=== PATIENT | male | born 1950 | race Caucasian/White ===

== ENCOUNTER 2016-12-17 17:09 | Inpatient (IN) ==
--- OUTSIDE RECORDS SUMMARY | 2016-12-17 19:49 | External Medical Summary ---
:1950 Author Organization [facility] Care Team Providers Name Role Phone DON ROA MD Primary Care Provider [phone] Summary purpose CCDA Sent to [facility] Chief Complaint and Reason for Visit No authorized Reason for Visit (Admitting Diagnosis) is available for this visit. Problem list No authorized problems tracked for continuity of care are available for this visit. Encounters No authorized problems tracked for encounter diagnoses are available for this visit. Medications No medications recorded for this patient visit Allergies, adverse reactions, alerts Allergen Category Ingredient Status Reaction Severity Onset No known drug No known drug No known drug Active allergies allergies allergies Immunizations No immunizations recorded for this patient visit Relevant diagnostic tests and/or laboratory data RESULTS Chemistry Group [id number] Result Normal Range Units TSH 2.494 .358-3.74 uIU/mL History of procedures Procedure Code Code Type Description Date Performed Performing Physician 20912 CPT-4 ASSAY THYROID STIM 07-06-2016 EVARISTO NESBITT HORMONE 76776 CPT-4 ROUTINE VENIPUNCTURE 07-06-2016 EVARISTO NESBITT Functional status No functional or cognitive status observations are available for this visit. Vital signs No authorized vital signs are available for this visit. Social history No Social History or smoking status observations were recorded for this visit. ( Unknown if ever smoked.) Treatment Plan No treatment plan text is available for this visit. Hospital discharge instructions No discharge instruction text is available for this visit.
--- OUTSIDE RECORDS SUMMARY | 2016-12-17 19:49 | External Medical Summary ---
:1950 Author Organization [facility] Care Team Providers Name Role Phone DON ROA MD Primary Care Provider [phone] Summary purpose CCDA Sent to [facility] Chief Complaint and Reason for Visit Admit Diagnosis 1 dyspnea Problem list No authorized problems tracked for [...] visit Relevant diagnostic tests and/or laboratory data No authorized results are available for this patient visit History of procedures No procedures recorded for this patient visit. Functional status No functional or cognitive status [...]
--- OUTSIDE RECORDS SUMMARY | 2016-12-17 19:49 | External Medical Summary | Continuity of Care Document ---
:1950 Author Organization [facility] Care Team Providers Name Role Phone PREMA GRANADO Admitting Physician PREMA GRANADO Attending Physician Hospital Admission Diagnosis Code Admission Diagnosis Date ENCOUNTER FOR PREPROCEDURAL CARDIOVASCULAR EXAMINATION Social History Element Description Code Description Smoking Status Code Start Date End Date System Smoking Status [id number] Never smoker SNOMED-CT Problems No data in the system Medications SNOMED CT Description 129936573 Drug Treatment Unknown Allergies No Allergy Data in the System Results Laboratory Results Order: Basic Metabolic PanelLegend: D=Delta , H=High, L=Low, HH=Critical High, LL=Critical Low, AA=Critical Alpha-Numeric, C =Corrected, A=Abnormal LOINC Test Result Flag Range Units Date 2344-12 1Glucose SerPl-mCnc 127 H 70-105 mg/dl 08/27/2015 10:36 3094-0 1BUN SerPl-mCnc 17 7-25 mg/dl 08/27/2015 10:36 2160-0 1Creat SerPl-mCnc 1.1 0.6-1.3 mg/dl 08/27/2015 10:36 23401-9 1Creat/Urea nit SerPl 15 13-39 08/27/2015 10:36 2951-2 1Sodium SerPl-sCnc 139 135-145 mmol/L 08/27/2015 10:36 56601-5 1Potassium SerPl-mCnc 4.2 3.5-5.1 mmol/L 08/27/2015 10:36 5-0 1Chloride SerPl-sCnc 99 98-107 mmol/l 08/27/2015 10:36 2027-9 1CO2 SerPl-sCnc 30 21-31 mmol/l 08/27/2015 10:36 49438-7 1Anion Gap SerPl-sCnc 14 9-16 mmol/L 08/27/2015 10:36 2692-2 1Osmolality SerPl 291 277-298 mOsm/kg 08/27/2015 10:36 23183-2 1Calcium SerPl-mCnc 9.2 8.2-10.0 mg/dl 08/27/2015 10:36 1GFR 67 60-116 GFRunits 08/27/2015 10:36 Performing [facility] Footnotes:[id number] - [address] [place] [address] - MARY MARCELO Order: CBC With Automated DifferentialLegend: D=Delta, H=High, L=Low, HH= Critical High, LL=Critical Low, AA=Critical Alpha-Numeric, C=Corrected, A= Abnormal LOINC Test Result Flag Range Units Date 90-2 1WBC # Bld Auto 7.6 4.5-11.0 10^3/mm3 08/27/2015 10:36 21364-8 1Retics # Auto 4.27 L 4.50-5.90 10^6/mm3 08/27/2015 10:36 24205-5 1Hgb BldV-mCnc 13.1 L 13.5-17.5 g/dl 08/27/2015 10:36 4544-3 1Hct VFr Bld Auto 40.2 L 41.0-53.0 % 08/27/2015 10:36 787-2 1MCV RBC Auto 94.1 82.0-100.0 10^6/mm3 08/27/2015 10:36 785-6 1MCH RBC Qn Auto 30.7 27.0-34.0 pg 08/27/2015 10:36 786-4 1MCHC RBC Auto-mCnc 32.6 32.0-36.0 g/dl 08/27/2015 10:36 788-0 1RDW RBC Auto-Rto 13.9 11.7-15.0 % 08/27/2015 10:36 777-3 1Platelet # Bld Auto 189 150-450 10^3/mm3 08/27/2015 10:36 33934-4 1PMV Bld 11.6 H 7.4-10.4 08/27/2015 10:36 53231-1 1Neutrophils # CSF 61.8 40.0-74.0 % 08/27/2015 10:36 1LYMPH% 24.7 14.0-46.0 % 08/27/2015 10:36 02453-0 1CD43 Ag Tiss Ql ImStn 8.5 4.0-13.0 % 08/27/2015 10:36 711-2 1Eosinophil # Bld Auto 4.7 H <=4.0 % 08/27/2015 10:36 704-7 1Basophils # Bld Auto 0.3 <=3.0 % 08/27/2015 10:36 751-8 1Neutrophils # Bld Auto 4.7 1.8-7.8 08/27/2015 10:36 62921-1 1Lymphocytes # Bld 1.9 0.7-4.5 08/27/2015 10:36 19937-3 1CD43 Ag Tiss Ql ImStn 0.7 0.1-1.0 08/27/2015 10:36 711-2 1Eosinophil # Bld Auto 0.36 <=4.00 08/27/2015 10:36 704-7 1Basophils # Bld Auto 0.02 <=0.20 08/27/2015 10:36 2MANDIFF N 08/27/2015 10:36 67935-3 2RBC Bld Auto N 08/27/2015 10:36 Performing Lab Footnotes:[facility] - [id number] - [address] - MARY MARCELO2[facility] - [id number] - [address] - Continuity Writer:, Mary Zaki MARCELO Order: UrinalysisLegend: D=Delta, H=High, L=Low, HH=Critical High, LL=Critical Low, AA=Critical Alpha-Numeric, C=Corrected, A=Abnormal LOINC Test Result Flag Range Units Date 5778-6 1Color Ur Yellow 08/27/2015 10:36 69117-0 1Clarity Ur Clear 08/27/2015 10:36 2966-0 1Sp Gr 24h Ur 1.025 1.005-1.030 08/27/2015 10:36 2756-5 1pH Ur 5.5 5.0-7.0 08/27/2015 10:36 63843-1 1Leukocyte esterase Ur-aCnc Negative NEGATIVE 08/27/2015 10:36 92040-4 1Nitrite Ur Ql Strip.auto Negative NEGATIVE 08/27/2015 10:36 37385-7 1Prot Tiss-mCnt Trace * NEGATIVE 08/27/2015 10:36 2349-9 1Glucose Ur Ql Negative NEGATIVE 08/27/2015 10:36 48557-4 1MEK Ur-mCnc Negative NEGATIVE 08/27/2015 10:36 1977-8 1Bilirub Ur Ql Negative NEGATIVE 08/27/2015 10:36 55018-9 1Urobilinogen Ur Ql 0.2 <=1.0 08/27/2015 10:36 933-2 1Bld Prod Typ BPU Negative NEGATIVE 08/27/2015 10:36 05371-6 1Micro UrnS N 08/27/2015 10:36 Performing Lab Footnotes:[facility] - [id number] - [address] [place] [address] - MARY MARCELO Vital Signs No data in the system Plan of Care No data in the system Procedures No data in the system Encounters Date Code Diagnosis Status (ICD10) - X77697 ENCOUNTER PREPROCEDURAL CV EXAM Active Immunizations No data in the system Functional Status No data in the system Hospital Discharge Instructions No data in the system
--- OUTSIDE RECORDS SUMMARY | 2016-12-17 19:49 | External Medical Summary ---
:1950 Author Organization [facility] Care Team Providers Name Role Phone DON ROA MD Primary Care Provider [phone] Summary purpose CCDA Sent to [facility] Chief Complaint and Reason for Visit No [...]
--- OUTSIDE RECORDS SUMMARY | 2016-12-17 19:49 | External Medical Summary ---
:1950 Author Organization [facility] Care Team Providers Name Role Phone DON ROA MD Primary Care Provider [phone] Summary purpose CCDA Sent to [facility] Chief Complaint and Reason for Visit No [...] for this patient visit History of procedures Procedure Code Code Type Description Date Performed Performing Physician 70678 CPT-4 OFFICE/OUTPATIENT VISIT, 07-20-2016 EVARISTO JONES Functional status No functional or cognitive status [...]
--- OUTSIDE RECORDS SUMMARY | 2016-12-17 19:49 | External Medical Summary ---
:1950 Author Organization [facility] Care Team Providers Name Role Phone DON ROA MD Primary Care Provider [phone] Summary purpose CCDA Sent to [facility] Chief Complaint and Reason for Visit Admit Diagnosis 1 PAIN IN LIMB Problem list No authorized problems tracked for continuity of care are available for this visit. Encounters No authorized problems tracked for encounter diagnoses are available for this visit. Medications No home medications recorded for this patient visit Allergies, adverse reactions, alerts Allergen Category Ingredient Status Reaction Severity Onset No known drug No known drug No known drug Active allergies allergies allergies Immunizations No immunizations recorded for this patient visit Relevant diagnostic tests and/or laboratory data RESULTS Complete Blood Count [id number]:41:00 Result Normal Range Units WBC 9.90 4.0-11.0 x 103/uL Red Blood Cells L 4.07 4.50-6.50 x 106/uL Hemoglobin 13.3 13.0-18.0 g/dl Hematocrit L 38.5 40.0-54.0 % MCV 94.6 76-96 fL MCH H 32.7 27.0-32.0 pg MCHC 34.5 31.0-35.0 g/dl Red Cell Distribution Width 12.8 11.0-16 % Platelet Count 171 150-400 x 103/uL MPV H 12.1 6.0-10.0 fL Neutrophil % H 72.3 45.0-70.0 % Neutrophil # 7.16 2.00-7.50 x 103/uL Lymph % L 18.2 20.0-40.0 % Lymph # 1.80 1.50-4.00 x 103/uL [place] % 6.6 3.0-10.0 % [place] # 0.65 0.20-0.80 x 103/uL Eosinophil % 2.7 1.0-5.0 % Eosinophil # 0.27 0.04-0.40 x 103/uL Baso % 0.2 0.0-2.0 % Baso # 0.02 0.02-0.2 x 103/uL Chemistry Group [id number]:00 Result Normal Range Units Glucose H 133 74-106 mg/dl Urea Nitrogen (BUN) H 24 7-18 mg/dl Osmo, Calcualation 288 268-292 Creatinine H 1.42 .55-1.30 mg/dl eGFR L 50 > 60 ml/min. BUN/Creat Ration H 16.9 11.6-13.8 Ratio Calcium 8.5 8.5-10.1 mg/dl Sodium 136 136-145 mmol/L Potassium 4.0 3.5-5.1 mmol/L Chloride 101 98-107 mmol/L TCO2 28.3 21-32 mmol/L Anion Gap 10.7 5.0-15.0 mmol/L Uric Acid H 7.8 2.6-7.2 mg/dl History of procedures Procedure Code Code Type Description Date Performed Performing Physician 00742 CPT-4 COMPLETE CBC W/AUTO DIFF 01-24-2015 EVARISTO NESBITT WBC 58402 CPT-4 METABOLIC PANEL TOTAL 01-24-2015 [place] [address] CPT-4 ASSAY OF BLOOD/URIC 01-24-2015 EVARISTO NESBITT ACID 40198 CPT-4 ROUTINE VENIPUNCTURE 01-24-2015 EVARISTO NESBITT Functional status No functional or [...]
--- OUTSIDE RECORDS SUMMARY | 2016-12-17 19:49 | External Medical Summary | Continuity of Care Document ---
:1950 Author Organization [facility] Care Team Providers Name Role Phone PREMA GRANADO Admitting Physician PREMA GRANADO Attending Physician Hospital Admission Diagnosis No data in the System Social History Element Description Code Description Smoking Status Code Start Date End Date System Smoking Status [id number] Never smoker SNOMED-CT Problems No data in the system Medications SNOMED CT Description [id number] Drug Treatment Unknown Allergies No Allergy Data in the System Results Laboratory Results Order: Basic Metabolic PanelLegend: D=Delta , H=High, L=Low, HH=Critical High, LL=Critical Low, AA=Critical Alpha-Numeric, C =Corrected, A=Abnormal LOINC Test Result Flag Range Units Date 2344-12 1Glucose SerPl-mCnc 127 H 70-105 mg/dl 08/27/2015 10:36 3094-0 1BUN SerPl-mCnc 17 7-25 mg/dl 08/27/2015 10:36 2160-0 1Creat SerPl-mCnc 1.1 0.6-1.3 mg/dl 08/27/2015 10:36 16214-5 1Creat/Urea nit SerPl 15 13-39 08/27/2015 10:36 2951-2 1Sodium SerPl-sCnc 139 135-145 mmol/L 08/27/2015 10:36 29119-0 1Potassium SerPl-mCnc 4.2 3.5-5.1 mmol/L 08/27/2015 10:36 2075-0 1Chloride SerPl-sCnc 99 98-107 mmol/l 08/27/2015 10:36 8-9 1CO2 SerPl-sCnc 30 21-31 mmol/l 08/27/2015 10:36 92063-4 1Anion Gap SerPl-sCnc 14 9-16 mmol/L 08/27/2015 10:36 2692-2 1Osmolality SerPl 291 277-298 mOsm/kg 08/27/2015 10:36 64501-5 1Calcium SerPl-mCnc 9.2 8.2-10.0 mg/dl 08/27/2015 10:36 1GFR 67 60-116 GFRunits 08/27/2015 10:36 Performing Lab Footnotes:[facility] [id number] - [address] - MARY MARCELO Order: CBC With Automated DifferentialLegend: D=Delta, H=High, L=Low, HH= Critical High, LL=Critical Low, AA=Critical Alpha-Numeric, C=Corrected, A= Abnormal LOINC Test Result Flag Range Units Date 6689-07 1WBC # Bld Auto 7.6 4.5-11.0 10^3/mm3 08/27/2015 10:36 88670-8 1Retics # Auto 4.27 L 4.50-5.90 10^6/mm3 08/27/2015 10:36 91866-7 1Hgb BldV-mCnc 13.1 L 13.5-17.5 g/dl 08/27/2015 [...] Bld Auto 189 150-450 10^3/mm3 08/27/2015 10:36 64096-0 1PMV Bld 11.6 H 7.4-10.4 08/27/2015 10:36 62296-0 1Neutrophils # CSF 61.8 40.0-74.0 % 08/27/2015 10:36 1LYMPH% 24.7 14.0-46.0 % 08/27/2015 10:36 40458-4 1CD43 Ag Tiss Ql ImStn 8.5 4.0-13.0 % 08/27/2015 10:36 711-2 1Eosinophil # Bld Auto 4.7 H <=4.0 % 08/27/2015 10:36 704-7 1Basophils # Bld Auto 0.3 <=3.0 % 08/27/2015 10:36 751-8 1Neutrophils # Bld Auto 4.7 1.8-7.8 08/27/2015 10:36 44461-1 1Lymphocytes # Bld 1.9 0.7-4.5 08/27/2015 10:36 47799-8 1CD43 Ag Tiss Ql ImStn 0.7 0.1-1.0 08/27/2015 10:36 711-2 1Eosinophil # Bld Auto 0.36 <=4.00 08/27/2015 10:36 704-7 1Basophils # Bld Auto 0.02 <=0.20 08/27/2015 10:36 2MANDIFF N 08/27/2015 10:36 12337-3 2RBC Bld Auto N 08/27/2015 10:36 Performing Lab Footnotes:[facility] [id number] - [address] - MARY MARCELO[address] - [id number] - [address] - Nanosystems Engineer:, Mary Marcelo MD - MARY MARCELO Order: UrinalysisLegend: D=Delta, H=High, L=Low, HH=Critical High, LL=Critical Low, AA=Critical Alpha-Numeric, C=Corrected, A=Abnormal LOINC Test Result Flag Range Units Date 5778-6 1Color Ur Yellow 08/27/2015 10:36 98707-8 1Clarity Ur Clear 08/27/2015 10:36 2966-0 1Sp Gr 24h Ur 1.025 1.005-1.030 08/27/2015 10:36 2756-5 1pH Ur 5.5 5.0-7.0 08/27/2015 10:36 98360-0 1Leukocyte esterase Ur-aCnc Negative NEGATIVE 08/27/2015 10:36 45044-0 1Nitrite Ur Ql Strip.auto Negative NEGATIVE 08/27/2015 10:36 20990-7 1Prot Tiss-mCnt Trace * NEGATIVE 08/27/2015 10:36 2349-9 1Glucose Ur Ql Negative NEGATIVE 08/27/2015 10:36 82640-8 1MEK Ur-mCnc Negative NEGATIVE 08/27/2015 10:36 1977-8 1Bilirub Ur Ql Negative NEGATIVE 08/27/2015 10:36 79339-0 1Urobilinogen Ur Ql 0.2 <=1.0 08/27/2015 10:36 933-2 1Bld Prod Typ BPU Negative NEGATIVE 08/27/2015 10:36 86610-2 1Micro UrnS N 08/27/2015 10:36 Performing Lab Footnotes:[facility] - [id number] - [address] [place] [address] - MARY MARCELO Vital Signs No data in the system Plan of Care No data in the system Procedures No data in the system Encounters No data in the system Immunizations No data in the system Functional Status No data in the system Hospital Discharge Instructions No data in the system
--- OUTSIDE RECORDS SUMMARY | 2016-12-17 19:49 | External Medical Summary ---
:1950 Author Organization [facility] Care Team Providers Name Role Phone DON ROA MD Primary Care Provider [phone] Summary purpose CCDA Sent to [facility] Chief Complaint and Reason for Visit No [...] Code Type Description Date Performed Performing Physician 72137 CPT-4 X-RAY EXAM OF FOREARM 05-28-2015 [place] 31474 CPT-4 X-RAY EXAM OF WRIST 05-28-2015 [place] Functional status No functional or cognitive status [...]
--- OUTSIDE RECORDS SUMMARY | 2016-12-17 19:49 | External Medical Summary ---
:1950 Author Organization [facility] Care Team Providers Name Role Phone CRISPIN BALLESTEROS, DON Primary Care Provider [phone] DON ROA MD Primary Care Provider [phone] Summary purpose CCDA Sent to [facility] Chief Complaint and Reason for [...]
--- OUTSIDE RECORDS SUMMARY | 2016-12-17 19:49 | External Medical Summary ---
:1950 Author Organization [facility] Care Team Providers Name Role Phone DON ROA MD Primary Care Provider [phone] Summary purpose CCDA Sent to [facility] Chief Complaint and Reason for Visit Admit Diagnosis 1 DYSEMIA Problem list No authorized problems tracked for [...]
--- OUTSIDE RECORDS SUMMARY | 2016-12-17 19:49 | External Medical Summary | Continuity of Care Document ---
:1950 Author Organization [facility] Allergies Active Description Code Type Severity Reaction Onset Reported/ Identified Relationship Clinical to Patient Status Yes No known 70973 ND N/A N/A 10/25/2012 drug 590 allergies Yes No Known NKA Misce Unknown N/A 08/10/2016 Allergies llane ous Aller gy Medications Medication Packaging Start Date Stop Date Route Dosage Sig Hydralazine HCl 25 MG 08/10/2016 25 MG TID Albuterol Sulfate 0.63 MG/3 ML 08/10/2016 1 VIAL.NEB PRN Levothyroxine Sodium 100 MCG 08/10/2016 100 MCG DAILY Spironolactone 25 MG 08/10/2016 25 MG DAILY Lisinopril 20 MG 08/10/2016 20 MG BID Hydrochlorothiazide 50 MG 08/10/2016 50 MG DAILY Indomethacin 50 MG 08/10/2016 50 MG PRN Metoprolol Tartrate 50 MG 08/10/2016 50 MG TID Lovastatin 20 MG 08/10/2016 20 MG DAILY Problems Date Dx Coded Attending Type Code Diagnosis Diagnosed By 09/17/2010 EVARISTO NESBITT MD 401.9 HYPERTENSION NOS G 09/17/2010 EVARISTO NESBITT MD 465.8 ACUTE URI MULT SITES NEC G 09/17/2010 EVARISTO NESBITT MD 493.00 EXTRINSIC ASTHMA, UNSPEC G 10/10/2010 EVARISTO NESBITT MD 401.9 HYPERTENSION NOS G 10/10/2010 EVARISTO NESBITT MD 493.00 EXTRINSIC ASTHMA, UNSPEC G 10/10/2010 EVARISTO NESBITT MD 401.9 HYPERTENSION NOS G 10/10/2010 EVARISTO NESBITT MD V76.44 SCREEN MAL NEOP PROSTATE G 10/16/2010 Josué ROA MD 401.9 HYPERTENSION NOS CHRISTOPHER M 12/16/2010 EVARISTO NESBITT MD 401.9 HYPERTENSION NOS G 12/16/2010 EVARISTO NESBITT MD 493.00 EXTRINSIC ASTHMA, UNSPEC G 05/18/2012 EVARISTO NESBITT MD 401.9 HYPERTENSION NOS G 05/18/2012 EVARISTO NESBITT MD 702.0 ACTINIC KERATOSIS G 05/18/2012 EVARISTO NESBITT MD 709.9 SKIN DISORDER NOS G 05/18/2012 EVARISTO NESBITT MD 786.2 COUGH G 05/18/2012 EVARISTO NESBITT MD 401.9 HYPERTENSION NOS G 05/18/2012 EVARISTO NESBITT MD 786.2 COUGH G 05/31/2012 EVARISTO NESBITT MD 288.60 LEUKOCYTOSIS NOS G 05/31/2012 EVARISTO NESBITT MD 401.9 HYPERTENSION NOS G 10/28/2012 EVARISTO NESBITT MD 278.01 MORBID OBESITY G 10/28/2012 EVARISTO NESBITT MD 401.9 HYPERTENSION NOS G 10/28/2012 EVARISTO NESBITT MD 427.9 CARDIAC DYSRHYTHMIA NOS G 10/28/2012 EVARISTO NESBITT MD 486 PNEUMONIA, ORGANISM NOS G 10/28/2012 EVARISTO NESBITT MD 491.21 OBSTRUCTIVE CHRONIC BRON G 10/28/2012 EVARISTO NESBITT MD 278.01 MORBID OBESITY G 10/28/2012 EVARISTO NESBITT MD 401.9 HYPERTENSION NOS G 10/28/2012 EVARISTO NESBITT MD 427.9 CARDIAC DYSRHYTHMIA NOS G 10/28/2012 EVARISTO NESBITT MD 486 PNEUMONIA, ORGANISM NOS G 10/28/2012 EVARISTO NESBITT MD 491.21 OBSTRUCTIVE CHRONIC BRON G 11/08/2012 EVARISTO NESBITT MD 401.9 HYPERTENSION NOS G 11/08/2012 EVARISTO NESBITT MD 427.69 PREMATURE BEATS NEC G 11/08/2012 EVARISTO NESBITT MD 493.90 ASTHMA, UNSPECIFIED G 11/08/2012 EVARISTO NESBITT MD 518.0 PULMONARY COLLAPSE G 02/06/2013 VENUS CINTRON MD 425.4 PRIM CARDIOMYOPATHY NEC 03/20/2013 VENUS CINTRON MD 425.4 PRIM CARDIOMYOPATHY NEC 03/20/2013 EVARISTO NESBITT MD 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 03/20/2013 EVARISTO NESBITT MD 786.05 SHORTNESS OF BREATH G 06/28/2013 EVARISTO NESBITT MD 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 06/28/2013 EVARISTO NESBITT MD 401.9 HYPERTENSION NOS G 06/28/2013 EVARISTO NESBITT MD 427.89 CARDIAC DYSRHYTHMIAS NEC G 06/28/2013 EVARISTO NESBITT MD 477.9 ALLERGIC RHINITIS NOS G 06/28/2013 EVARISTO NESBITT MD 786.09 RESPIRATORY ABNORM NEC G 12/19/2013 MARIA DEL ROSARIO ALEX 719.41 JOINT PAIN-SHLDER 12/19/2013 MARIA DEL ROSARIO ALEX 919.4 INSECT BITE NEC 03/01/2014 CRISPIN BALLESTEROS, A 599.70 [facility] 03/01/2014 Josué ROA MD 682.6 CELLULITIS OF LEG [facility] 03/01/2014 Josué ROA MD 599.70 [facility] 03/01/2014 Josué ROA MD 682.6 CELLULITIS OF LEG [facility] 03/06/2014 EVARISTO NESBITT MD 274.9 GOUT NOS G 03/06/2014 EVARISTO NESBITT MD 682.6 CELLULITIS OF LEG G 05/21/2014 MARIA DEL ROSARIO ALEX 729.5 PAIN IN LIMB 01/24/2015 EVARISTO NESBITT MD 274.9 GOUT NOS G 01/24/2015 EVARISTO NESBITT MD 729.5 PAIN IN LIMB G 05/28/2015 AUSTIN SALEEM 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, left E wrist 05/28/2015 AUSTIN SALEEM R29.6 Repeated falls E 05/28/2015 AUSTIN SALEEM S56.992A Inj unsp musc/fasc/tend E at forearm level, left arm, init 05/28/2015 AUSTIN SALEEM S69.82XA Oth injuries of left E wrist, hand and finger(s), init encntr 05/28/2015 KELLEE SALEEMTIM Moses W01.0XXA Fall same lev from E slip/trip w/o strike against object, init 05/28/2015 LATISHA DIXONPKELLEETIM Moses Y92.[address] in unsp E non-[facility] (private[facility] residence as place 05/28/2015 LATISHA DIXONAUSTIN Albrecht Y93.01 Activity, walking, E marching and hiking 05/28/2015 LATISHA AUSTIN ORTIZ M25.532 Pain in left wrist E 05/28/2015 LATISHA DIXONAUSTIN Albrecht M79.602 Pain in left arm E 05/28/2015 LATISHA AUSTIN ORTIZ R29.6 Repeated falls E 05/28/2015 LATISHA DIXONAUSTIN Albrecht S59.812A Other specified injuries E left forearm, initial encounter 05/28/2015 LATISHA DIXONPKELLEETIM Moses W01.0XXA Fall same lev from E slip/trip w/o strike against object, init 05/28/2015 LATISHA DIXONAUSTIN Albrecht Y92.[address] in [facility] E non-[facility] (private[facility] residence as place 05/28/2015 LATISHA DIXONTrena AUSTIN D Y93.01 Activity, walking, E marching and hiking 08/30/2015 PREMA CID R94.31 ABNORMAL T~NS602 ELECTROCARDIOGRAM [ECG] [EKG] 08/30/2015 PREMA CID P Z01.810 ENCOUNTER FOR T~NS602 PREPROCEDURAL CARDIOVASCULAR EXAMINATION 08/30/2015 PREMA CID Z01.812 ENCOUNTER FOR T~NS602 PREPROCEDURAL LABORATORY EXAMINATION 05/11/2016 DELICIA BALLESTEROS, EVARISTO Moses I10 Essential (primary) G hypertension 05/11/2016 DELICIA BALLESTEROS, EVARISTO Moses M10.9 Gout, unspecified G 05/11/2016 DELICIA BALLESTEROS, EVARISTO Moses Z23 Encounter for G immunization 05/11/2016 EVARISTO NESBITT MD I10 Essential (primary) G hypertension 05/11/2016 DELICIA BALLESTEROS, EVARITSO Moses M10.9 Gout, unspecified G 05/11/2016 DELICIA BALLESTEROS, EVARISTO Moses Z12.5 Encounter for screening G for malignant neoplasm of prostate 07/06/2016 EVARISTO NESBITT MD E03.4 Atrophy of thyroid G (acquired) 08/10/2016 Mal Stallworth, Other N40.0 BENIGN PROSTATIC Leo R HYPERPLASIA WITHOUT LOWER URINRY TRACT SYMP 08/10/2016 Mal Stallworth, Other R97.20 ELEVATED PROSTATE Leo R SPECIFIC ANTIGEN [PSA] 08/13/2016 Mal Stallworth, Other C61 MALIGNANT NEOPLASM OF Leo R PROSTATE Procedures Code [place] [address] THER/PROPH/DIAG INJ, SC/IM EVARISTO NESBITT MD 09/17/2010 75403 OFFICE/OUTPATIENT VISIT, EVARISTO MELVIN MD 09/17/2010 J1040 METHLPREDNISOLONE ACETATE EVARISTO NESBITT MD 09/17/2010 J7610 ALBUTEROL COMP CON EVARISTO NESBITT MD 09/17/2010 88694 OFFICE/OUTPATIENT VISIT, EVARISTO MELVIN MD 10/10/2010 17004 ROUTINE VENIPUNCTURE EVARISTO NESBITT MD 10/10/2010 49304 COMPREHEN METABOLIC PANEL EVARISTO NESBITT MD 10/10/2010 14773 URINALYSIS, AUTO, W/O SCOPE EVARISTO NESBITT MD 10/10/2010 03141 ASSAY, BLD/SERUM CHOLESTEROL EVARISTO NESBITT MD 10/10/2010 14884 ASSAY OF PSA, TOTAL EVARISTO NESBITT MD 10/10/2010 78329 COMPLETE CBC W/AUTO DIFF WBC EVARISTO NESBITT MD 10/10/2010 15700 OFFICE/OUTPATIENT VISIT, DON GREER MD 10/16/2010 30777 OFFICE/OUTPATIENT VISIT, EVARISTO MELVIN MD 12/16/2010 03524 DESTRUCT B9 LESION, 1-14 EVARISTO NESBITT MD 05/18/2012 80374 OFFICE/OUTPATIENT VISIT, EVARISTO MELVIN MD 05/18/2012 55496 ROUTINE VENIPUNCTURE EVARISTO NESBITT MD 05/18/2012 33062 METABOLIC PANEL TOTAL CA EVARISTO NESBITT MD 05/18/2012 54159 COMPLETE CBC W/AUTO DIFF WBC EVARISTO NESBITT MD 05/18/2012 64571 ROUTINE VENIPUNCTURE EVARISTO NESBITT MD 05/31/2012 62668 METABOLIC PANEL TOTAL CA EVARISTO NESBITT MD 05/31/2012 24753 COMPLETE CBC W/AUTO DIFF WBC EVARISTO NESBITT MD 05/31/2012 07666 OFFICE/OUTPATIENT VISIT, EVARISTO MELVIN MD 05/31/2012 9394 NEBULIZER THERAPY EVARISTO NESBITT MD 10/25/2012 74155 INITIAL HOSPITAL CARE EVARISTO NESBITT MD 10/25/2012 8872 DX ULTRASOUND-HEART EVARISTO NESBITT MD 10/26/2012 9923 INJECT STEROID EVARISTO NESBITT MD 10/26/2012 08667 SUBSEQUENT HOSPITAL CARE EVARISTO NESBITT MD 10/26/2012 53503 SUBSEQUENT HOSPITAL CARE EVARISTO NESBITT MD 10/27/2012 85236 HOSPITAL DISCHARGE DAY EVARISTO NESBITT MD 10/28/2012 73372 OFFICE/OUTPATIENT VISIT, EVARISTO MELVIN MD 11/08/2012 61570 ROUTINE VENIPUNCTURE ABDULAZIZ BALLESTEROS, VENUS Shirley 02/06/2013 74588 METABOLIC PANEL TOTAL CA ABDULAZIZ BALLESTEROS, VENUS Shirley 02/06/2013 12743 TTE W/O DOPPLER, GREGORY CINTRON MD, VENUS Shirley 03/20/2013 16882 OFFICE/OUTPATIENT VISIT, ROBERT NESBITT MD, EVARISTO Ferris 03/20/2013 50961 THER/PROPH/DIAG INJ, SC/IM EVARISTO NESBITT MD 06/28/2013 37989 OFFICE/OUTPATIENT VISIT, EVARISTO MELVIN MD 06/28/2013 J1040 METHLPREDNISOLONE ACETATE EVARISTO NESBITT MD 06/28/2013 94033 THER/PROPH/DIAG INJ, SC/IM MARIA DEL ROSARIO ALEX 12/19/2013 39926 OFFICE/OUTPATIENT VISIT, MARIA DEL ROSARIO PRO 12/19/2013 J0696 CEFTRIAXONE SODIUM INJECTION MARIA DEL ROSARIO ALEX 12/19/2013 19976 ROUTINE VENIPUNCTURE DON ROA MD 03/01/2014 57983 COMPREHEN METABOLIC PANEL DON ROA MD 03/01/2014 44416 URINALYSIS, AUTO W/SCOPE DON ROA MD 03/01/2014 91726 ASSAY OF BLOOD/URIC ACID DON ROA MD 03/01/2014 45784 COMPLETE CBC W/AUTO DIFF WBC DON ROA MD 03/01/2014 83531 RBC SED RATE, AUTOMATED DON ROA MD 03/01/2014 68990 THER/PROPH/DIAG INJ, SC/IM DON ROA MD 03/01/2014 78030 EMERGENCY DEPT VISIT DON ROA MD 03/01/2014 A9270 NON-COVERED ITEM OR SERVICE [facility] 03/01/2014 J0696 CEFTRIAXONE SODIUM INJECTION DON ROA MD 03/01/2014 J1885 KETOROLAC TROMETHAMINE INJ DON ROA MD 03/01/2014 71762 EMERGENCY DEPT VISIT DON ROA MD 03/01/2014 54512 ROUTINE VENIPUNCTURE EVARISTO NESBITT MD 03/06/2014 39150 COMPREHEN METABOLIC PANEL EVARISTO NESBITT MD 03/06/2014 92766 COMPLETE CBC W/AUTO DIFF WBC EVARISTO NESBITT MD 03/06/2014 09356 RBC SED RATE, AUTOMATED EVARISTO NESBITT MD 03/06/2014 98413 OFFICE/OUTPATIENT VISIT, EVARISTO MELVIN MD 03/06/2014 92298 OFFICE/OUTPATIENT VISIT, MARIA DEL ROSARIO PRO 05/21/2014 31782 THER/PROPH/DIAG INJ, SC/IM EVARISTO NESBITT MD 01/24/2015 43702 OFFICE/OUTPATIENT VISIT, EVARISTO MELVIN MD 01/24/2015 J2930 METHYLPREDNISOLONE INJECTION EVARISTO NESBITT MD 01/24/2015 95986 ROUTINE VENIPUNCTURE EVARISTO NESBITT MD 01/24/2015 95827 METABOLIC PANEL TOTAL CA EVARISTO NESBITT MD 01/24/2015 74787 ASSAY OF BLOOD/URIC ACID EVARISTO NESBITT MD 01/24/2015 49678 COMPLETE CBC W/AUTO DIFF WBC EVARISTO NESBITT MD 01/24/2015 19299 X-RAY EXAM OF FOREARM AUSTIN SALEEM 05/28/2015 12515 X-RAY EXAM OF WRIST AUSTIN SALEEM 05/28/2015 37798 OFFICE/OUTPATIENT VISIT EST AUSTIN SALEEM 05/28/2015 88175 PPSV23 VACC 2 YRS+ SUBQ/IM EVARISTO NESBITT MD 05/11/2016 92304 OFFICE/OUTPATIENT VISIT EST EVARISTO NESBITT MD 05/11/2016 G0009 ADMIN PNEUMOCOCCAL VACCINE EVARISTO NESBITT MD 05/11/2016 42450 ROUTINE VENIPUNCTURE EVARISTO NESBITT MD 05/11/2016 45143 COMPREHEN METABOLIC PANEL EVARISTO NESBITT MD 05/11/2016 78175 LIPID PANEL EVARISTO NESBITT MD 05/11/2016 31649 ASSAY THYROID STIM HORMONE EVARISTO NESBITT MD 05/11/2016 81177 ASSAY OF BLOOD/URIC ACID EVARISTO NESBITT MD 05/11/2016 40606 COMPLETE CBC W/AUTO DIFF WBC EVARISTO NESBITT MD 05/11/2016 G0103 PSA SCREENING EVARISTO NESBITT MD 05/11/2016 70260 ROUTINE VENIPUNCTURE EVARISTO NESBITT MD 07/06/2016 38667 ASSAY THYROID STIM HORMONE EVARISTO NESBITT MD 07/06/2016 87282 OFFICE/OUTPATIENT VISIT EST EVARISTO NESBITT MD 07/20/2016 Results Test Result Range COMPLETE BLOOD COUNT - 05/18/12 16:23 RBC 5.10 10^6u 4.50-6.50 Platelet 180 10^3u 150-400 MPV 9.7 fL 6.0-10.0 Parke % 7.2 % 3.0-10.0 Parke # 0.83 10^3u 0.20-0.80 MCV 94 fL 76-96 MCHC 33.4 G/DL 31.0-35.0 WBC 11.5 10^3u 4.0-11.0 RDW 11.5 % 11.0-16 Neut % 66.3 % 45.0-70.0 Neut # 7.63 10^3u 2.00-7.50 Baso % 0.7 % 0.0-2.0 Eos # 0.30 10^3u 0.04-0.40 Baso # 0.08 10^3u 0.02-0.2 MCH 31.5 PG 27.0-32.0 Eos % 2.6 % 1.0-5.0 Lymph # 2.67 10^3u 1.50-4.00 Lymph % 23.2 % 20.0-40.0 HGB 16.1 G/DL 13.0-18.0 HCT 48.2 % 40.0-54.0 Basic Metabolic Profile - 05/18/12 16:23 Potassium 4.1 MMOLL 3.5-5.1 Sodium 143 MMOLL 136-145 Osmo Calculated 286 268-292 Bun/Creat 10.9 RATIO 11.6-13.8 Creatinine 1.1 MG/DL .6-1.3 CO2 24.5 MMOLL 21-32 Chloride 105 MMOLL 98-107 Calcium 9.3 MG/DL 8.5-10.1 Anion GAP 17.6 MMOLL 5.0-15.0 BUN 12 MG/DL 7-18 Glucose 114 MG/DL 74-106 EGFR 73 MLMIN > 60 COMPLETE BLOOD COUNT - 05/31/12 15:12 RBC 4.77 10^6u 4.50-6.50 Platelet 148 10^3u 150-400 MPV 10.0 fL 6.0-10.0 Parke % 7.0 % 3.0-10.0 Parke # 0.62 10^3u 0.20-0.80 MCV 92 fL 76-96 MCHC 34.0 G/DL 31.0-35.0 WBC 8.9 10^3u 4.0-11.0 RDW 11.8 % 11.0-16 Neut % 60.8 % 45.0-70.0 Neut # 5.39 10^3u 2.00-7.50 Baso % 0.7 % 0.0-2.0 Eos # 0.41 10^3u 0.04-0.40 Baso # 0.06 10^3u 0.02-0.2 MCH 31.4 PG 27.0-32.0 Eos % 4.6 % 1.0-5.0 Lymph # 2.39 10^3u 1.50-4.00 Lymph % 26.9 % 20.0-40.0 HGB 15.0 G/DL 13.0-18.0 HCT 44.0 % 40.0-54.0 Basic Metabolic Profile - 05/31/12 16:09 Potassium 4.0 MMOLL 3.5-5.1 Sodium 143 MMOLL 136-145 Osmo Calculated 286 268-292 Bun/Creat 12.0 RATIO 11.6-13.8 Creatinine 1.0 MG/DL .6-1.3 CO2 23.7 MMOLL 21-32 Chloride 105 MMOLL 98-107 Calcium 8.7 MG/DL 8.5-10.1 Anion GAP 18.3 MMOLL 5.0-15.0 BUN 12 MG/DL 7-18 Glucose 126 MG/DL 74-106 EGFR 81 MLMIN > 60 Comp Metabolic W OSMO/eGFR - 10/25/12 14:48 Potassium 3.7 MMOLL 3.5-5.1 Sodium 137 MMOLL 136-145 Osmo Calculated 275 268-292 T. Protein 7.7 G/DL 6.4-8.2 T Bili 2.2 MG/DL 0.2-1.0 Bun/Creat 10.0 RATIO 11.6-13.8 Creatinine 1.4 MG/DL .6-1.3 CO2 28.9 MMOLL 21-32 Chloride 101 MMOLL 98-107 Calcium 9.0 MG/DL 8.5-10.1 AST 16 U/L 15-37 ALT 36 U/L 30-65 Alk Phos 99 U/L 50-136 Albumin 3.3 G/DL 3.4-5.0 Anion GAP 10.8 MMOLL 5.0-15.0 BUN 14 MG/DL 7-18 A/G Ratio 0.8 RATIO 1.1-1.6 Glucose 114 MG/DL 74-106 EGFR 55 MLMIN > 60 Troponin I - 10/25/12 14:48 Troponin I 0.02 NG/ML 0.0-0.07 COMPLETE BLOOD COUNT - 10/25/12 14:48 RBC 4.50 10^6u 4.50-6.50 Platelet 127 10^3u 150-400 MPV 10.2 fL 6.0-10.0 Parke 7.0 % 3-10 MCV 92 fL 76-96 MCHC 34.0 G/DL 31.0-35.0 WBC 10.9 10^3u 4.0-11.0 RDW 11.7 % 11.0-16 Seg 77.0 % 45-70 Eos 1.0 % 1-5 Bands 2.0 % 0-6 Lymph 13.0 % 20-40 MCH 31.4 PG 27.0-32.0 HGB 14.1 G/DL 13.0-18.0 HCT 41.4 % 40.0-54.0 Urinalysis - 10/25/12 14:48 Nitrites Negative Negative Leukocytes Negative Negative Ketone Negative MG/DL Negative Color Dk Yellow Yellow Blood Negative Negative Bilirubin Small Negative Glucose Negative MG/DL Negative Urine WBC N3-5 pH 5.5 5.0-8.0 Mucus MOD Bacteria FEW Urobilinogen 0.2 EU/dl 0.1-1.0 SG 1.030 1.003-1.030 Protein 100 MG/DL Urine Appearance SLCLOUDY Amorphous Crystals MANY Squamous Epis N0-2 Sed Rate (ESR) - 10/25/12 14:48 Sed Rate (ESR) 44 MM/hr 0-20 Culture Blood - 10/25/12 14:48 Culture Blood Collected: 10/25/12 14:48 Culture Blood Source BLOOD Basic Metabolic Profile - 10/26/12 07:00 Potassium 4.2 MMOLL 3.5-5.1 Sodium 134 MMOLL 136-145 Osmo Calculated 273 268-292 Bun/Creat 12.7 RATIO 11.6-13.8 Creatinine 1.1 MG/DL .6-1.3 CO2 25.2 MMOLL 21-32 Chloride 102 MMOLL 98-107 Calcium 9.1 MG/DL 8.5-10.1 Anion GAP 11.0 MMOLL 5.0-15.0 BUN 14 MG/DL 7-18 Glucose 180 MG/DL 74-106 EGFR 72 MLMIN > 60 COMPLETE BLOOD COUNT - 10/26/12 07:00 RBC 4.68 10^6u 4.50-6.50 Platelet 127 10^3u 150-400 MPV 10.2 fL 6.0-10.0 Parke 1.0 % 3-10 MCV 92 fL 76-96 MCHC 33.7 G/DL 31.0-35.0 WBC 12.8 10^3u 4.0-11.0 RDW 11.0 % 11.0-16 Seg 91.0 % 45-70 Lymph 8.0 % 20-40 MCH 31.0 PG 27.0-32.0 HGB 14.5 G/DL 13.0-18.0 HCT 43.1 % 40.0-54.0 TSH - 10/26/12 07:02 TSH 1.11 UIUML .34-4.82 Arterial Blood Gas - 10/26/12 10:15 pO2 70 MM HG 80-105 pCO2 30.9 MM HG 35-45 pH 7.440 7.35-7.45 Lactic Acid 1.57 MMOLL 0.36-1.25 Total CO2 22 MMOLL 23-27 Base Excess -3 MMOLL -2-+3 HCO3 21 MMOLL 22-26 O2 Sat 95 % 95-98 D-Dimer - 10/26/12 12:13 D-Dimer 847 NG/ML < 682 Basic Metabolic Profile - 10/27/12 07:35 Potassium 3.8 MMOLL 3.5-5.1 Sodium 141 MMOLL 136-145 Osmo Calculated 290 268-292 Bun/Creat 17.7 RATIO 11.6-13.8 Creatinine 1.3 MG/DL .6-1.3 CO2 28.3 MMOLL 21-32 Chloride 103 MMOLL 98-107 Calcium 9.2 MG/DL 8.5-10.1 Anion GAP 13.5 MMOLL 5.0-15.0 BUN 23 MG/DL 7-18 Glucose 182 MG/DL 74-106 EGFR 60 MLMIN > 60 COMPLETE BLOOD COUNT - 10/27/12 07:35 RBC 4.55 10^6u 4.50-6.50 Platelet 139 10^3u 150-400 MPV 11.0 fL 6.0-10.0 Parke 1.0 % 3-10 MCV 92 fL 76-96 MCHC 33.4 G/DL 31.0-35.0 WBC 15.8 10^3u 4.0-11.0 RDW 11.3 % 11.0-16 Seg 89.0 % 45-70 Eos 1.0 % 1-5 Bands 1.0 % 0-6 Lymph 8.0 % 20-40 MCH 30.8 PG 27.0-32.0 HGB 14.0 G/DL 13.0-18.0 HCT 41.9 % 40.0-54.0 Basic Metabolic Profile - 10/28/12 07:00 Potassium 3.2 MMOLL 3.5-5.1 Sodium 141 MMOLL 136-145 Osmo Calculated 290 268-292 Bun/Creat 20.0 RATIO 11.6-13.8 Creatinine 1.3 MG/DL .6-1.3 CO2 24.5 MMOLL 21-32 Chloride 104 MMOLL 98-107 Calcium 9.0 MG/DL 8.5-10.1 Anion GAP 15.7 MMOLL 5.0-15.0 BUN 26 MG/DL 7-18 Glucose 165 MG/DL 74-106 EGFR 60 MLMIN > 60 Magnesium - 10/28/12 07:00 Magnesium 1.9 MG/DL 1.8-2.4 COMPLETE BLOOD COUNT - 10/28/12 07:00 RBC 4.28 10^6u 4.50-6.50 Platelet 140 10^3u 150-400 MPV 10.0 fL 6.0-10.0 Parke 4.0 % 3-10 MCV 92 fL 76-96 MCHC 33.6 G/DL 31.0-35.0 WBC 11.1 10^3u 4.0-11.0 RDW 11.7 % 11.0-16 Seg 84.0 % 45-70 Lymph 12.0 % 20-40 MCH 30.8 PG 27.0-32.0 HGB 13.2 G/DL 13.0-18.0 HCT 39.2 % 40.0-54.0 Sed Rate (ESR) - 10/28/12 07:00 Sed Rate (ESR) 33 MM/hr 0-20 Basic Metabolic Profile - 02/06/13 10:32 Potassium 4.6 MMOLL 3.5-5.1 Sodium 139 MMOLL 136-145 Osmo Calculated 280 268-292 Bun/Creat 11.8 RATIO 11.6-13.8 Creatinine 1.52 MG/DL .6-1.3 CO2 31.1 MMOLL 21-32 Chloride 101 MMOLL 98-107 Calcium 9.4 MG/DL 8.5-10.1 Anion GAP 11.5 MMOLL 5.0-15.0 BUN 18 MG/DL 7-18 Glucose 116 MG/DL 74-106 EGFR 50 MLMIN > 60 Urinalysis - 03/01/14 13:50 Nitrites Negative Negative Leukocytes Negative Negative Ketone Negative MG/DL Negative Color Yellow Yellow Blood Negative Negative Bilirubin Negative Negative Glucose Negative MG/DL Negative Urine WBC N0-2 Urine RBC N0-2 pH 5.0 5.0-8.0 Urobilinogen 1.0 EU/dl 0.1-1.0 SG 1.030 1.003-1.030 Protein 30 MG/DL Urine Appearance SLCLOUDY Amorphous Crystals MANY Squamous Epis N0-2 Site CC COMPLETE BLOOD COUNT - 03/01/14 14:00 RBC 4.05 10^6u 4.50-6.50 Platelet 170 10^3u 150-400 MPV 9.5 fL 6.0-10.0 Parke % 8.6 % 3.0-10.0 Parke # 1.09 10^3u 0.20-0.80 MCV 95 fL 76-96 MCHC 34.0 G/DL 31.0-35.0 WBC 12.7 10^3u 4.0-11.0 RDW 11.1 % 11.0-16 Neut % 73.5 % 45.0-70.0 Neut # 9.32 10^3u 2.00-7.50 Baso % 0.7 % 0.0-2.0 Eos # 0.16 10^3u 0.04-0.40 Baso # 0.09 10^3u 0.02-0.2 MCH 32.3 PG 27.0-32.0 Eos % 1.3 % 1.0-5.0 Lymph # 2.02 10^3u 1.50-4.00 Lymph % 15.9 % 20.0-40.0 HGB 13.1 G/DL 13.0-18.0 HCT 38.5 % 40.0-54.0 Sed Rate (ESR) - 03/01/14 14:00 Sed Rate (ESR) 64 MM/hr 0-20 Comp Metabolic W OSMO/eGFR - 03/01/14 14:00 Potassium SMR MMOLL Sodium SMR MMOLL Osmo Calculated SMR T. Protein SMR G/DL T Bili SMR MG/DL Bun/Creat SMR RATIO Creatinine SMR MG/DL CO2 SMR MMOLL Chloride SMR MMOLL Calcium SMR MG/DL AST SMR U/L ALT SMR U/L Alk Phos SMR U/L Albumin SMR G/DL Anion GAP SMR MMOLL BUN SMR MG/DL A/G Ratio SMR RATIO Glucose SMR MG/DL EGFR Manual Report MLMIN Uric Acid - 03/01/14 14:00 Uric Acid SMR MG/DL COMPLETE BLOOD COUNT - 03/06/14 15:37 RBC 3.85 10^6u 4.50-6.50 Platelet 214 10^3u 150-400 MPV 9.0 fL 6.0-10.0 Parke % 6.7 % 3.0-10.0 Parke # 0.44 10^3u 0.20-0.80 MCV 94 fL 76-96 MCHC 34.7 G/DL 31.0-35.0 WBC 6.6 10^3u 4.0-11.0 RDW 11.3 % 11.0-16 Neut % 57.8 % 45.0-70.0 Neut # 3.79 10^3u 2.00-7.50 Baso % 0.4 % 0.0-2.0 Eos # 0.38 10^3u 0.04-0.40 Baso # 0.03 10^3u 0.02-0.2 MCH 32.5 PG 27.0-32.0 Eos % 5.8 % 1.0-5.0 Lymph # 1.92 10^3u 1.50-4.00 Lymph % 29.3 % 20.0-40.0 HGB 12.5 G/DL 13.0-18.0 HCT 36.1 % 40.0-54.0 Comp Metabolic W OSMO/eGFR - 03/06/14 15:37 Potassium 4.6 MMOLL 3.5-5.1 Sodium 139 MMOLL 136-145 Osmo Calculated 294 268-292 T. Protein 7.6 G/DL 6.4-8.2 T Bili 0.5 MG/DL 0.2-1.0 Bun/Creat 22.3 RATIO 11.6-13.8 Creatinine 1.30 MG/DL .6-1.3 CO2 29.4 MMOLL 21-32 Chloride 105 MMOLL 98-107 Calcium 8.9 MG/DL 8.5-10.1 AST 31 U/L 15-37 ALT 46 U/L 12-78 Alk Phos 67 U/L 46-116 Albumin 3.4 G/DL 3.4-5.0 Anion GAP 9.2 MMOLL 5.0-15.0 BUN 29 MG/DL 7-18 A/G Ratio 0.8 RATIO 1.1-1.6 Glucose 97 MG/DL 74-106 EGFR 56 MLMIN > 60 Sed Rate (ESR) - 03/06/14 15:37 Sed Rate (ESR) 65 MM/hr 0-20 COMPLETE BLOOD COUNT - 01/24/15 10:48 RBC 4.07 10^6u 4.50-6.50 Platelet 171 10^3u 150-400 MPV 12.1 fL 6.0-10.0 Parke % 6.6 % 3.0-10.0 Parke # 0.65 10^3u 0.20-0.80 MCV 94.6 fL 76-96 MCHC 34.5 G/DL 31.0-35.0 WBC 9.90 10^3u 4.0-11.0 RDW 12.8 % 11.0-16 Neut % 72.3 % 45.0-70.0 Neut # 7.16 10^3u 2.00-7.50 Baso % 0.2 % 0.0-2.0 Eos # 0.27 10^3u 0.04-0.40 Baso # 0.02 10^3u 0.02-0.2 MCH 32.7 PG 27.0-32.0 Eos % 2.7 % 1.0-5.0 Lymph # 1.80 10^3u 1.50-4.00 Lymph % 18.2 % 20.0-40.0 HGB 13.3 G/DL 13.0-18.0 HCT 38.5 % 40.0-54.0 Basic Metabolic Profile - 01/24/15 11:07 Potassium 4.0 MMOLL 3.5-5.1 Sodium 136 MMOLL 136-145 Osmo Calculated 288 268-292 Bun/Creat 16.9 RATIO 11.6-13.8 Creatinine 1.42 MG/DL .55-1.30 CO2 28.3 MMOLL 21-32 Chloride 101 MMOLL 98-107 Calcium 8.5 MG/DL 8.5-10.1 Anion GAP 10.7 MMOLL 5.0-15.0 BUN 24 MG/DL 7-18 Glucose 133 MG/DL 74-106 EGFR 50 MLMIN > 60 Uric Acid - 01/24/15 11:07 Uric Acid 7.8 MG/DL 2.6-7.2 COMPLETE BLOOD COUNT - 05/11/16 10:26 RBC 4.17 10^6u 4.50-6.50 Platelet 177 10^3u 150-400 MPV 11.6 fL 6.0-10.0 Parke % 7.6 % 3.0-10.0 Parke # 0.67 10^3u 0.20-0.80 MCV 95.4 fL 76-96 MCHC 33.7 G/DL 31.0-35.0 WBC 8.80 10^3u 4.0-11.0 RDW 13.2 % 11.0-16 Neut % 65.4 % 45.0-70.0 Neut # 5.75 10^3u 2.00-7.50 Baso % 0.2 % 0.0-2.0 Eos # 0.42 10^3u 0.04-0.40 Baso # 0.02 10^3u 0.02-0.2 MCH 32.1 PG 27.0-32.0 Eos % 4.8 % 1.0-5.0 Lymph # 1.94 10^3u 1.50-4.00 Lymph % 22.0 % 20.0-40.0 HGB 13.4 G/DL 13.0-18.0 HCT 39.8 % 40.0-54.0 TSH - 05/11/16 11:22 TSH 3.949 UIUML .358-3.74 Uric Acid - 05/11/16 11:22 Uric Acid 9.6 MG/DL 2.6-7.2 Comp Metabolic W OSMO/eGFR - 05/11/16 11:22 Potassium 4.8 MMOLL 3.5-5.1 Sodium 143 MMOLL 136-145 Osmo Calculated 301 268-292 T. Protein 8.4 G/DL 6.4-8.2 T Bili 0.8 MG/DL 0.2-1.0 Bun/Creat 19.2 RATIO 11.6-13.8 Creatinine 1.25 MG/DL .55-1.30 CO2 32.0 MMOLL 21-32 Chloride 106 MMOLL 98-107 Calcium 8.6 MG/DL 8.5-10.1 AST 19 U/L 15-37 ALT 26 U/L 12-78 Alk Phos 77 U/L 46-116 Albumin 3.3 G/DL 3.4-5.0 Anion GAP 9.8 MMOLL 5.0-15.0 BUN 24 MG/DL 7-18 A/G Ratio 0.6 RATIO 1.1-1.6 Glucose 124 MG/DL 74-106 EGFR 58 MLMIN > 60 Lipid Profile - 05/11/16 11:22 LDL Jasbir 47.0 MG/DL 9-100 Triglyceride 100 MG/DL 30-150 Risk 3.0 1.4-3.3 Cholesterol 101 MG/DL 0-200 HDL 34 MG/DL 40-60 PSA Screen - 05/11/16 11:22 PSA Screen 3.56 NG/ML 0.0-4.0 TSH - 07/06/16 12:04 TSH 2.494 UIUML .358-3.74 Encounters ACCT No. Visit Discharge Status Pt. Type Provider Facility Loc./Unit Complaint Date/Time [id number] 08/27/2015 [facility] Unknown LOY Huynh, 10:10:00 PREMA Huynh~[id number]
--- OUTSIDE RECORDS SUMMARY | 2016-12-17 19:49 | External Medical Summary | Continuity of Care Document ---
:1950 Author Organization [facility] Address [address] [place] [address] Care Team Providers Name Role Phone UNKNOWN Unavailable Unavailable Insurance Providers Payer Name Policy Number Subscriber Name Relationship Medicare [id number] Venus Alexis Self / Same As Patient Problems Active Problems Surgical Problem Onset Date Status Hx of vasectomy Unknown Acute Past Problems Medical Problem Onset Date Asthma Unknown Sleep apnea Unknown Arthritis Unknown Gout Unknown Medications Current Home Medications Medication Dose Units Route Directions Days/Qty Instructions Start Date Hydralazine Hcl 25 Mg 25 Mg Oral Three Times 90 A Day 7 Lisinopril 20 Mg 20 Mg Oral Twice A Day 180 7 Hydrochlorothiazide 50 Mg Oral Daily 30 50 Mg 7 Lovastatin (Mevacor) 20 Mg Oral Daily 30 20 Mg 7 Levothyroxine Sodium 100 Mcg Oral Daily 30 100 Mcg 7 Spironolactone 25 Mg Oral Daily 30 (Aldactone 25 Mg*) 25 7 Mg Metoprolol Tartrate 50 Mg Oral Three Times 60 50 Mg A Day 7 Albuterol Sulfate 1 Vial.ne Inhalation As Needed 25 0.63 Mg/3 Ml b 7 Indomethacin 50 Mg 50 Mg Oral As Needed 30 7 Ciprofloxacin Hcl 500 Mg 7 Social History Social History Problem Response Recorded Date/Time History of Street Drugs? No 08/10/2016 10:41am Hx Alcohol Use No 08/10/2016 10:41am Query Response Start Date Stop Date Smoking status: Never smoker Hospital Discharge Instructions Current inpatient/outpatient. Discharge instructions are currently unavailable. Plan of Care Instructions/Education Provided Instructions from visit on: 08/10/16 Prescriptions Functional Status No functional status results. Allergies, Adverse Reactions, Alerts No known allergies. Immunizations No immunization records. Vital Signs Ambulatory Vital Signs Vital Response Date/Time Height 6 ft 3 in 08/10/2016 10:43am Weight 488 lbs 08/10/2016 10:43am Blood Pressure, Sitting, Left Arm 176/74 mm Hg 08/10/2016 10:43am Pulse Rate 114 bpm 08/10/2016 10:43am Body Surface Area 3.55 m2 08/10/2016 10:43am Body Mass Index 61.0 kg/m2 08/10/2016 10:43am Pulse Oximetry Pulse Oximetry 08/10/2016 10:43am Results Ambulatory Laboratory Results Test Name Result Units Flags Reference Result Date/Time Comments Bedside Urine NEGATIVE (N=NEG) 08/10/2016 Bilirubin (LAB) 10:42am Bedside Urine Occult NEGATIVE (N=NEG) 08/10/2016 Blood (LAB) 10:42am Bedside Urine Clarity SL CLOUDY 08/10/2016 (N=CLEAR) 10:42am Bedside Urine Color STRAW (N=CLEAR) 08/10/2016 (LAB) 10:42am Bedside Urine Glucose NORMAL 08/10/2016 (UA) (N=NORMAL) 10:42am Bedside Urine Ketones NEGATIVE (N=NEG) 08/10/2016 (LAB) 10:42am Bedside Urine NEGATIVE (N=NEG) 08/10/2016 Leukocyte Esterase (L 10:42am Bedside Urine Nitrite NEGATIVE (N=NEG) 08/10/2016 (LAB) 10:42am Bedside Urine pH 5.0 (N=5-6) 08/10/2016 (LAB) 10:42am Bedside Urine Protein NEGATIVE (N=NEG) 08/10/2016 (LAB) 10:42am Urine Specimen 11 08/10/2016 Description 10:42am Bedside Urine 1.020(N=1.000-1. 08/10/2016 Specific [place] (LAB 025) 10:42am Urine Comment SKJ 08/10/2016 10:42am Specimen Type (Urine VOID 08/10/2016 Panel) 10:42am Bedside Urine NORMAL 08/10/2016 Urobilinogen (LAB) (N=NORMAL) 10:42am Procedures Procedure Status Date Provider(s) UA w/o micro (Office) Completed 08/10/16 Bladder Scan (office) Completed 08/10/16 Encounters Encounter Location Arrival/Admit Date Discharge/Depart Date Attending Provider Registered [facility] 08/10/16 11:47am Araceli Resendez Elodia Cohn M.D. Originated Office Visit [facility] 08/10/16 10:15am Mal[facility] Leo Cohn M.D. Registered [facility] 08/10/16 10:15am Mal, [facility] Leo Cohn M.D. Departed Clinic [facility] 08/10/16 10:15am 08/10/16 11:59pm Elodia Resendez M.D.
--- OUTSIDE RECORDS SUMMARY | 2016-12-17 19:49 | External Medical Summary ---
:1950 Author Organization [facility] Care Team Providers Name Role Phone DON ROA MD Primary Care Provider [phone] Summary purpose CCDA Sent to [facility] Chief Complaint and Reason for Visit Admit Diagnosis 1 GOUT NOS Problem list No authorized problems tracked for [...] Code Type Description Date Performed Performing Physician 24162 CPT-4 OFFICE/OUTPATIENT VISIT 01-24-2015 EVARISTO NESBITT EST 76799 CPT-4 THER/PROPH/DIAG INJ SC/IM 01-24-2015 EVARISTO NESBITT J2930 CPT-4 METHYLPREDNISOLONE 01-24-2015 EVARISTO NESBITT INJECTION Functional status No functional or cognitive status [...]
--- OUTSIDE RECORDS SUMMARY | 2016-12-17 19:49 | External Medical Summary ---
:1950 Author Organization [facility] Care Team Providers Name Role Phone DON ROA MD Primary Care Provider [phone] Summary purpose CCDA Sent to [facility] Chief Complaint and Reason for Visit No [...] and/or laboratory data RESULTS Complete Blood Count [id number] Result Normal Range Units WBC 8.80 4.0-11.0 x 103/uL Red Blood Cells L 4.17 4.50-6.50 x 106/uL Hemoglobin 13.4 13.0-18.0 g/dl Hematocrit L 39.8 40.0-54.0 % MCV 95.4 76-96 fL MCH H 32.1 27.0-32.0 pg MCHC 33.7 31.0-35.0 g/dl Red Cell Distribution Width 13.2 11.0-16 % Platelet Count 177 150-400 x 103/uL MPV H 11.6 6.0-10.0 fL Neutrophil % 65.4 45.0-70.0 % Neutrophil # 5.75 2.00-7.50 x 103/uL Lymph % 22.0 20.0-40.0 % Lymph # 1.94 1.50-4.00 x 103/uL Caroline % 7.6 3.0-10.0 % Caroline # 0.67 0.20-0.80 x 103/uL Eosinophil % 4.8 1.0-5.0 % Eosinophil # H 0.42 0.04-0.40 x 103/uL Baso % 0.2 0.0-2.0 % Baso # 0.02 0.02-0.2 x 103/uL Chemistry Group [id number]:00 Result Normal Range Units Glucose H 124 74-106 mg/dl Urea Nitrogen (BUN) H 24 7-18 mg/dl Osmo, Calcualation H 301 268-292 Creatinine 1.25 .55-1.30 mg/dl eGFR L 58 > 60 ml/min. BUN/Creat Ration H 19.2 11.6-13.8 Ratio Calcium 8.6 8.5-10.1 mg/dl Sodium 143 136-145 mmol/L Potassium 4.8 3.5-5.1 mmol/L Chloride 106 98-107 mmol/L TCO2 32.0 21-32 mmol/L Anion Gap 9.8 5.0-15.0 mmol/L Protein Total H 8.4 6.4-8.2 g/dl Albumin L 3.3 3.4-5.0 g/dl A/G Ratio L 0.6 1.1-1.6 Ratio Bilirubin, Total 0.8 0.2-1.0 mg/dl Alkaline Phos 77 46-116 U/L AST 19 15-37 U/L ALT 26 12-78 U/L Uric Acid H 9.6 2.6-7.2 mg/dl Cholesterol 101 0-200 mg/dl Trigylceride 100 30-150 mg/dl HDL CHOLESTEROL L 34 40-60 mg/dl LDL - Calculated 47.0 9-100 mg/dl Risk 3.0 1.4-3.3 PSA Screen 3.56 0.0-4.0 ng/ml TSH H 3.949 .358-3.74 uIU/mL History of procedures Procedure Code Code Type Description Date Performed Performing Physician 04988 CPT-4 ASSAY THYROID STIM 05-11-2016 EVARISTO NESBITT HORMONE 01783 CPT-4 ASSAY OF BLOOD/URIC 05-11-2016 EVARISTO NESBITT ACID 23542 CPT-4 COMPLETE CBC W/AUTO DIFF 05-11-2016 EVARISTO NESBITT WBC 62168 CPT-4 COMPREHEN METABOLIC 05-11-2016 EVARISTO NESBITT PANEL 04121 CPT-4 LIPID PANEL 05-11-2016 EVARISTO NESBITT G0103 CPT-4 PSA SCREENING 05-11-2016 EVARISTO NESBITT 06349 CPT-4 ROUTINE VENIPUNCTURE 05-11-2016 EVARISTO NESBITT Functional status No functional or [...]
[2016-12-17 20:05] VITALS: BMI 61.5
[2016-12-17] MEDS ORDERED: ONDANSETRON 4 MG/2 ML INJECTION IVP PRN (21:04)
[2016-12-17] MEDS ORDERED: ACETAMINOPHEN 325 MG TABLET PO PRN (21:04)
[2016-12-17] MEDS ORDERED: CALCIUM CARBONATE Chewable 500mg TABLET PO PRN (21:04)
[2016-12-17] MEDS: ALBUTEROL 2.5mg/3ml (0.083%) NEB AEROSOL PRN (21:14)
[2016-12-17] MEDS: NS 1,000 ML IV SCH (22:00)
[2016-12-17] MEDS ORDERED: ENOXAPARIN 60 MG/0.6 ML INJECTION SQ SCH (22:14)
--- NOTE | 2016-12-17 23:02 | History & Physical Report ---
<Lico Carranza - Last Filed: 12/17/16 22:52> History of Present Illness Date: 12/17/16 Chief complaint: Low back and pelvic pain not controlled w/ home regimen HPI: Venancio is a 66 y/o male who lives in [place], [place] who was recently diagnosed w / Multiple Myeloma and discharged yesterday from [facility] in [place], [place] who presented to [facility] ER tonight d/t worsening low back pain from lytic lesions in in spine and was then directly admitted to [facility] for further evaluation and management. Patient states several weeks ago he presented to his PCP d/t not feeling well and a CXR at that time showed a mass in the left chest wall and he was referred to [facility] Dr. Burden of Oncology and patient had a biopsy of the lesion and it showed Multiple Myeloma and also noted to have adenopathy in the axilla, and osteolytic lesions in the lumbar spine, pelvis and sacrum. Patient was sent to [facility] for approximately one week where he received chemotherapy and then was discharged yesterday and was supposed to follow up w/ Dr. Burden today in [place] to continue his chemotherapy and also consider Radiation Therapy. It was felt that d/t patient's pain and other medical issues, patient should be evaluated in ER at [place] then decision made to transfer to [facility] and consult Oncology. Patient admitted to the Hospitalist service for further evaluation and management and Oncology consultation. Patient upon presentation to the Medical floor did have some mild wheezing and shortness of breath and has h/o COPD/Asthma and requested an albuterol breathing treatment. Patient feeling better at the time that I saw him through the In Touch technology. Review of Systems Review of systems: patient denies f/c/s; denies change in bowel or bladder function; denies SOSA, n /v/d and other than some mild respiratory issues denies any other complaints other than pain at this time. [facility] Patient Stated Medical History Other HEENT Yes: Retinal detachment Cardiac Arrhythmia Yes: A-fib Hypertension Yes Chronic Obstructive Pulmonary Yes Disease (COPD) Hx Renal Disease Yes: Chronic Kidney Disease, Stage 3 Other Yes: Prostate Cancer Anemia Yes Chemotherapy Yes: Cytoxan on 12/14/16 Medical History Updates: Patient states he has h/o LÓPEZ and is on CPAP at night, COPD/Asthma, ? h/o Afib which he believes is paroxysmal but is not sure and h/o HTN though he states he is off most medications now d/t having some low BP while in [facility]. Patient has h/o LE edema as well and morbid obesity. Also has h/o hypothyroidism and Prostate Cancer, anemia and bilateral renal lesions which are also listed on recent note from Dr. Burden. Family History: Mother with breast cancer who is . - Social History Smoking status: Former smoker Alcohol intake: former Alcohol intake frequency: does not drink Household members: spouse Medications Home Medications Medication Instructions Recorded Confirmed Type Acyclovir 1 tab PO TID 12/17/16 12/17/16 History Levothyroxine Tab [Synthroid] 1 tab PO ACB 12/17/16 12/17/16 History Lisinopril [Prinivil] 20 mg PO DAILY 12/17/16 12/17/16 History Lovastatin [Mevacor] 20 mg PO DAILY 12/17/16 12/17/16 History Metoprolol Tartrate [Lopressor] 50 mg PO BIDWM 12/17/16 12/17/16 History Nitroglycerin Patch [Nitro-Dur 0.2 0.2 mg TRANSDERMA Q24HR 12/17/16 12/17/16 History mg/Hr] Oxycodone/APAP 10/325 [Percocet 1 tab PO Q4H PRN 12/17/16 12/17/16 History 10/325] Spironolactone [Aldactone] 25 mg PO DAILY 12/17/16 12/17/16 History Allopurinol [Zyloprim] 1 tab PO DAILY 12/18/16 12/18/16 History Hydralazine [Apresoline] 25 mg PO TID 12/18/16 12/18/16 History HydroCHLOROthiazide [HydroDIURIL] 1 tab PO WB 12/18/16 12/18/16 History Sulfamethoxazole/Trimethoprim 1 tab PO BID 12/18/16 12/18/16 History [Bactrim Ds Tablet] Allergies Allergy/AdvReac Type Severity Reaction Status Date / Time No Known Drug Allergies Allergy Verified 12/17/16 19:54 Exam Vital Signs: Temperature 97.4 F 12/17/16 20:20 Pulse Rate 76 12/17/16 21:17 Respiratory Rate 22 12/17/16 21:17 Blood Pressure 131/64 12/17/16 20:20 Pulse Oximetry 96 12/17/16 21:17 Oxygen Delivery Method Nasal Cannula Oxygen Flow Rate 2 Height: 1.91 m Weight: 223.4 kg Body Mass Index: 61.5 - Constitutional Present: no acute distress, morbidly obese - Routine HEENT Exam Head: Present: normocephalic, atraumatic Eye: Present: EOMI, PERRL. Absent: scleral injection ENT: Present: mucous membranes dry - Routine Neck Exam Present: supple. Absent: JVD - Routine Respiratory Exam Present: CTA bilaterally. Absent: accessory muscle use - Routine Cardiovascular Exam Present: irregular rhythm - Routine Abdominal Exam Present: soft, normoactive bowel sounds. Absent: tenderness - Routine Extremities Exam Present: edema. Absent: cyanosis, clubbing - Routine Neurological Exam Present: alert, oriented X3, CN II-XII intact - Routine Psychiatric Exam Present: normal affect, normal thought process, cooperative Results - Labs CBC & Chem 7: 12/17/16 21:28 12/17/16 21:28 Assessment and Plan DVT Prophylaxis: SCD's, Lovenox Resuscitation Status: Full Code Assessment and Plan: 1) Acute intractable pain d/t lytic lesions in spine, pelvis and also chest wall on left side with minimal relief from home regimen 2) Multiple Myeloma w/ recent dx and s/p chemotherapy 3) Acute Dehydration POA 4) COPD/Asthma - mildly symptomatic upon presentation and improved w/ neb albuterol treatment 5) LÓPEZ on CPAP at night 6) Cardiac arrhythmia - likely that of Afib and likely chronic and not paroxysmal however patient is unsure 7) HTN - recent episodes of low BP in [facility] so patient has been taken off some of this meds 8) Hypothyroidism 9) Recent dx of Prostate Cancer PLan: Admit to Hospitalist service direct admission and consult Oncology Labs upon admission - CMP, CBC and in the AM that of BMP and CBC Albuterol q 4 hours prn Percocet 10/325mg po q 4 hours prn Dilaudid 1 mg IV q 3 hours for breakthrough pain Consider topical low back therapies to augment pain mgt as well, e.g. Lidoderm patch RT consult - CPAP at night - patient did not bring his from home IVFs - NS to run at 100cc/hour and reassess for continued IVF need in the AM Telemetry May use port Home meds reviewed and restarted as indicated Lovenox and SCDs for DVT prophylaxis I have discussed the plan of care with the patient and he verbalized understanding - Time spent with patient greater than 35 minutes Hospital Course Summary Disclaimer: The visit summary below is not to be considered part of the above Progress Note. <Rhona Dhillon - Last Filed: 12/18/16 18:56> History of Present Illness Date: 12/18/16 [facility] Patient Stated Medical History Other HEENT Yes: Retinal detachment Cardiac Arrhythmia Yes: A-fib Hypertension Yes Chronic Obstructive Pulmonary Yes Disease (COPD) Hx Renal Disease Yes: Chronic Kidney Disease, Stage 3 Other Yes: Prostate Cancer Anemia Yes Chemotherapy Yes: Cytoxan on 12/14/16 Exam Vital Signs: Temperature 97.2 F 12/18/16 16:00 Pulse Rate 60 12/18/16 16:00 Respiratory Rate 16 12/18/16 16:34 Blood Pressure 98/58 12/18/16 16:00 Pulse Oximetry 97 12/18/16 16:34 Oxygen Delivery Method Nasal Cannula Oxygen Flow Rate 2 Height: 1.91 m Weight: 224.2 kg Results - Labs CBC & Chem 7: 12/18/16 04:50 12/18/16 04:50 Assessment and Plan Assessment and Plan: Dr. Carranza's note reviewed. Mr. Alexis interviewed and examined. Patient's was present and assisted in providing history. CC: Severe back pain HPI: Venancio is a 66 y/o male who lives in [place], [place] who was recently diagnosed with Multiple Myeloma after a chest x-ray demonstrated a mass in the left chest. 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 Biopsy confirmed diagnosis of multiple myeloma and chemotherapy was initiated (Cytoxan and VD) on 12/14 and he received Zometa for lytic disease and epo for anemia. Patient was discharged on 12/16 returning to his home with plans to follow-up with Dr. Burden on 12/17 to coordinate continuation of chemotherapy locally. In the 24 hours after discharge the patient had significant increase in pain in the left shoulder and low back such that he was unable to ambulate or transfer independently. EMS assisted the patient into his car so he could go to his physician's appointment but it was determined that the patient should further appointment in the office and instead be evaluated in the emergency room in [facility] where pain control remained problematic and he was referred for hospitalization for pain control. Currently patient reports pain in his low back is 7-8 out of 10 and that with any movement or repositioning in bed pain increases to 10+/10. Patient was noted to be wheezing slightly on admission yesterday evening and required albuterol treatment on admission. PH/SH/FH: agree with that recorded above with history of bilateral rotator cuff tears and a pinched nerve in his left elbow. The only past surgery patient has had his PICC line placement one week ago today. Family history is positive for mother having breast cancer as noted and father dying of coronary artery disease. Social history is as noted above with addition the patient is on disability and has been long-term. Patient's primary care physician is Dr. Trey Mcnulty and his oncologist is Dr. Burden. His is his alternate decision maker and patient requested a DO NOT RESUSCITATE order be written. The latter was discussed with the patient's . ROS: 10 point review as recorded by Dr. Carranza. He notes he has been able to urinate since the catheter was removed at home by his home health nurse yesterday morning. He is having difficulty with constipation since he was hospitalized in [place]. EXAM: General-NAD, alert, morbidly obese HEENT-PERRL, EOMI without nystagmus, conjunctiva clear, sclera anicteric, conjugate gaze, facial structures symmetric, oropharynx clear, neck thick Lungs-respirations nonlabored, good airflow but decreased breath sounds throughout Cardiac-regular rhythm, S1-S2 Abd-soft, nontender, no palpable adenopathy or mass, bowel sounds diminished; large pannus Ext-+2 bilateral lower extremity edema, no ulcerations present Skin-mild discoloration without obvious ulceration or satellite skin lesions under pannus Neuro-sensation intact 4 extremities, cranial nerves 3-12 intact, oral and maxillofacial surgery resident symmetric/strong, weak dorsiflexion/plantarflexion present Psych-flat affect but responds to questions appropriately DATA: Hemoglobin 10.4-9.7, platelet count mildly depressed at 136-126. Chemistries unremarkable other than mild increased BUN/creatinine. A/P: Acute intractable pain d/t lytic lesions in spine, pelvis and also chest wall on left side with minimal relief from home regimen Ambulatory dysfunction Multiple Myeloma w/ recent dx and s/p chemotherapy Acute Dehydration POA COPD/Asthma - mildly symptomatic upon presentation and improved w/ neb albuterol treatment LÓPEZ on CPAP at night Cardiac arrhythmia - likely that of Afib and likely chronic and not paroxysmal however patient is unsure HTN - recent episodes of low BP in [facility] so patient has been taken off some of this meds Hypothyroidism Recent dx of Prostate Cancer, Debbie's-6, low-grade. DO NOT RESUSCITATE. Discussed with Dr. Hernandez, fentanyl patch initiated, Percocet scheduled to try to improve pain control. PT/OT consults. Chemotherapy continued with Velcade today; next dose due 12/21. Continue tumor lysis regimen and prophylactic Bactrim and acyclovir. Continue low-volume IV fluids. Reassess renal function and CBC in a.m. Bowel regimen initiated. Lovenox for DVT prophylaxis. Home regimen for blood pressure/hypothyroidism continued. Outpatient records/transfer records reviewed. High-risk medications-IV narcotics /chemotherapy in use. Hospital Course Summary Disclaimer: The visit summary below is not to be considered part of the above Progress Note.
[2016-12-17] MEDS: Oxycodone/Apap 10/325 1 TAB PO PRN (23:07)
[2016-12-18] MEDS: ALBUTEROL 2.5mg/3ml (0.083%) NEB AEROSOL PRN ×4 (03:53→16:33)
[2016-12-18] MEDS: LEVOTHYROXINE 100 MCG TABLET PO SCH (06:00)
[2016-12-18] MEDS ORDERED: ENOXAPARIN 60 MG/0.6 ML INJECTION SQ SCH (07:15)
[2016-12-18] MEDS: HYDROMORPHONE 2 MG/ML INJECTION IVP PRN ×3 (07:40→18:32)
[2016-12-18] MEDS: NS 1,000 ML IV SCH ×2 (08:24→18:36)
[2016-12-18] MEDS ORDERED: ENOXAPARIN 40 MG/0.4 ML INJECTION SQ SCH (09:00)
[2016-12-18] MEDS ORDERED: SENNA + DOCUSATE TABLET PO PRN (09:05)
[2016-12-18] MEDS: LISINOPRIL 20 MG TABLET PO SCH (09:17)
[2016-12-18] MEDS: DOCUSATE SODIUM 100 MG CAPSULE PO SCH ×2 (09:17→21:34)
[2016-12-18] MEDS: SPIRONOLACTONE 25 MG TABLET PO SCH (09:17)
[2016-12-18] MEDS: ACYCLOVIR 200 MG CAPSULE PO SCH ×3 (09:18→21:34)
[2016-12-18] MEDS: Oxycodone/Apap 10/325 1 TAB PO PRN (11:09)
[2016-12-18] MEDS ORDERED: DiphenhydrAMINE 50 MG/ML INJECTION IVP PRN (13:49)
[2016-12-18] MEDS ORDERED: METHYLPREDNISOLONE SOD SUCC 125mg/2ml INJECTION IVP PRN (13:50)
[2016-12-18] MEDS ORDERED: HYDROCORTISONE SOD SUCC 100mg/2ml INJECTION IVP PRN (13:50)
[2016-12-18] MEDS: HYDRALAZINE 25 MG TABLET PO SCH ×2 (14:43→21:58)
[2016-12-18] MEDS: ALLOPURINOL 300 MG TABLET PO SCH (14:43)
[2016-12-18] MEDS: NITROGLYCERIN 0.2 MG/HR PATCH TD SCH (14:47)
[2016-12-18] MEDS ORDERED: BORTEZOMIB 3.5 MG SQ ONE (15:00)
[2016-12-18] MEDS: Oxycodone/Apap 10/325 1 TAB PO SCH ×2 (15:52→20:18)
[2016-12-18] MEDS: ALBUTEROL 2.5mg/3ml (0.083%) NEB AEROSOL SCH ×2 (16:31→20:15)
[2016-12-18] MEDS: ENOXAPARIN 60 MG/0.6 ML INJECTION SQ SCH (18:36)
[2016-12-18] MEDS: LOVASTATIN 20 MG TABLET PO SCH (21:33)
[2016-12-18] MEDS: SULFAMETHOXAZOLE/TMP 800 MG/160 MG DS TABLET PO SCH (21:34)
[2016-12-18] MEDS: NITROGLYCERIN PATCH REMOVAL TD SCH (21:34)
[2016-12-19] MEDS: Oxycodone/Apap 10/325 1 TAB PO SCH ×8 (01:22→21:37)
[2016-12-19] MEDS: ALBUTEROL 2.5mg/3ml (0.083%) NEB AEROSOL PRN ×2 (04:00→13:29)
[2016-12-19] MEDS: NS 1,000 ML IV SCH ×2 (04:55→15:48)
[2016-12-19] MEDS: LEVOTHYROXINE 100 MCG TABLET PO SCH (05:44)
[2016-12-19] MEDS: ALBUTEROL 2.5mg/3ml (0.083%) NEB AEROSOL SCH ×2 (08:56→19:25)
[2016-12-19] MEDS: HYDRALAZINE 25 MG TABLET PO SCH ×4 (09:12→17:44)
[2016-12-19] MEDS: ACYCLOVIR 200 MG CAPSULE PO SCH ×3 (09:14→21:00)
[2016-12-19] MEDS: DOCUSATE SODIUM 100 MG CAPSULE PO SCH ×2 (09:15→20:55)
[2016-12-19] MEDS: ALLOPURINOL 300 MG TABLET PO SCH (09:15)
[2016-12-19] MEDS: SPIRONOLACTONE 25 MG TABLET PO SCH (09:15)
--- NOTE | 2016-12-19 11:00 | Consultation ---
DATE OF CONSULTATION 12/18/2016 CHIEF COMPLAINT Bone pain. HISTORY OF PRESENT ILLNESS This is a 66-year-old male patient with history of prostate cancer diagnosed in July 2016, evaluated but not treated. Surgery and radiation were elected against due to the patient's morbid obesity and size at 480 pounds. The patient presented with chest and left shoulder pain. CT scan showed large bony sessile lesions involving the left mid chest and extensive metastatic disease involving multiple areas of the spine. CT scan of the spine on 12/07/2016 showed a large soft tissue mass causing significant bony abnormalities to the left posterior ribs. There are some lytic lesions in the thoracic spine with compression fractures. CT scan of the lumbar spine showed multiple lytic lesions. CT scan of the chest, abdomen and pelvis without contrast on 12/03/2016 showed extensive osteolytic mets throughout the spine, sternum and left scapula. Large pleural-based sessile lesions involving the left mid chest posteriorly and right upper chest. Extensive lymphadenopathy throughout the left paraspinal space lower chest. Left axillary adenopathy but no mediastinal or hilar adenopathy. Small peripheral-based pulmonary nodules in the left lung base measuring 2 x 1.5 cm. Extensive osteolytic lesions throughout the lumbar spine, pelvis and sacrum. Bilateral renal lesions. No visceral masses or lesions. CT scan of the brain without contrast negative. 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 The patient was diagnosed with IgG multiple myeloma. He was seen by Dr. Sergo Macias in [place]. The patient started on chemotherapy VCD on 12/11/2016. He received the first cycle on December 11, 2016 in [place] using Velcade 1.3 mg/m2 on days 1, 4, 8 and 11 plus cyclophosphamide 900 mg/m2 which was given on December 14, 2016. Also given dexamethasone from December 11, 2016 through December 14, 2016 for four days, days 1 through 4, with a plan to give him 40 mg p.o. weekly. Velcade was given day 1 on December 11, 2016 and day 4 also was given. The patient is due for Velcade day 8 on 12/18/2016. His chief complaint is bone pain. He is on Percocet and Dilaudid but this is not helping for pain. REVIEW OF SYSTEMS GENERAL: The patient is morbidly obese, bedridden. He denies fever. RESPIRATORY: Shortness of breath with minimal exertion. He is on oxygen. CARDIOVASCULAR: No chest pain. MUSCULOSKELETAL: Bone pain. GASTROINTESTINAL: No nausea or vomiting. He has constipation. WELLNESS PROGRAM ADMINISTRATOR: No history of stroke. PAST MEDICAL HISTORY Morbid obesity. Hypertension. PHYSICAL EXAMINATION GENERAL: Morbidly obese with weight more than 400 pounds. LUNGS: Clear to auscultation. No wheezing or crackles. CARDIOVASCULAR: Normal sinus rhythm. No murmur or JVD. WELLNESS PROGRAM ADMINISTRATOR: No focal neurologic deficits. ABDOMEN: Very obese. Difficult to assess for organomegaly, masses or ascites. EXTREMITIES: Obese with edema. LABORATORY CBC: White count 5.7, hemoglobin 10.4, platelets 136,000, neutrophils 72%. Chemistry: Potassium 4.2, creatinine 1.2, glucose 128, calcium 7.1, total bilirubin 0.5. AST and ALT normal. Total protein 7.2. ASSESSMENT 1. 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 The patient has started chemotherapy VCD ( Velcade, cyclophosphamide and dexamethasone) on December 11, [address] [place] [address] Sergo Macias. The patient has good tolerance to the chemotherapy with clinical benefit and response. IgG dropped from 5720 down to 3960 mg/dL and hemoglobin improved from 9.6 up to 10.4. 2. Morbid obesity. RECOMMENDATIONS/PLAN 1- Will continue with VCD regimen. The patient is due for Velcade 1.3 mg/m2 at.3.6 mg on 12/18/2016. Will give him day 11 of Velcade on 12/21/2016 subcutaneously. 2- Will start weekly dexamethasone 40 mg p.o. on 12/21/2016. 3- Will continue with prophylactic antibiotics, Bactrim DS three times a week, acyclovir 400 mg twice daily, Diflucan 200 mg daily. 4- Lovenox 40 mg twice daily. 5- Procrit 40,000 units subcutaneously for hemoglobin less than 10. 6- Already received Zometa on December 14, 2016. 7- Radiation Oncology consultation. The plan is physical therapy, pain management with possible discharge home. MTDD
[2016-12-19] MEDS: HYDROMORPHONE 2 MG/ML INJECTION IVP PRN ×2 (11:16→20:58)
[2016-12-19] MEDS: LISINOPRIL 20 MG TABLET PO SCH (11:19)
--- NOTE | 2016-12-19 12:12 | Progress Note ---
Oncology Subjective Feeling somewhat better today. Sitting the side of the bed. Is still having low back pain. He is on narcotics. He received Velcade yesterday. Exam Vital signs: Temperature 98.2 F 12/19/16 08:00 Pulse Rate 70 12/19/16 08:00 Respiratory Rate 18 12/19/16 08:56 Blood Pressure 129/57 12/19/16 08:00 Pulse Oximetry 97 12/19/16 08:56 Oxygen Delivery Method Nasal Cannula Oxygen Flow Rate 2 - Constitutional no acute distress, morbidly obese Comments: Needs significant help to get out of bed. - Routine Respiratory Exam Absent: rales, respiratory distress, rhonchi - Routine Cardiovascular Exam Present: RRR. Absent: JVD - Routine Abdominal Exam Present: soft, distended Comments: Morbidly obese. Very difficult to assess for organomegaly or masses. - Routine Extremities Exam Present: edema - Routine Back/Spine/Pelvis Exam Back/Spine: Present: paraspinal tenderness, vertebral tenderness Comments: Tenderness over the pelvic bones and the spines. - Routine Neurological Exam Present: alert, oriented X3 Oncology Results - Labs CBC & Chem 7: 12/19/16 03:58 12/19/16 03:58 Labs: Short CBC 12/19/16 Range/Units 03:58 WBC 6.1 (4.5-11.0) T/MM3 Hgb 9.5 L (13.5-17.5) GM/DL Hct 30.1 L (41-53) % Plt Count 126 L (130-400) T/MM3 BMP 12/19/16 03:58 Sodium 133 L Potassium 4.5 Chloride 106 Carbon Dioxide 26 BUN 32.0 H Creatinine 1.0 Glucose 96 Calcium 6.7 L Liver Function 12/19/16 Range/Units 03:58 Albumin 2.7 L (3.5-5.0) G/DL Assessment and Plan Assessment and Plan: Assessment and plan 1. 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 1. Morbid oppositely making very difficult for treatment planning especially radiation therapy for the plasmacytoma compression fractures. We'll continue chemotherapy cyclophosphamide/Velcade/dexamethasone. We'll continue Zometa. Continue supportive measures with Bactrim, acyclovir and Diflucan. Continue fentanyl patch, Dilaudid and Percocet for pain control. Radiation oncology consultation with Dr. Rosette Kruger in [place]. [facility] has a machine that hold up to 500 pounds. However they do not have skilled service. I discussed this issue with the patient and his . They would like to meet with the family preservation caseworker for discharge planning. Then willing for private facility doing the radiation therapy. - Time Spent With Patient Total time spent is greater than 50% in coordination of care (as documented) at patient's floor/unit and/or counseling patient: greater than 35 minutes Sepsis Assessment - Evaluation Sepsis screening result: No Definite Risk
[2016-12-19] MEDS: NITROGLYCERIN 0.2 MG/HR PATCH TD SCH (12:27)
[2016-12-19] MEDS ORDERED: HYDROMORPHONE 2 MG/ML INJECTION IVP ONE (12:34)
[2016-12-19] MEDS ORDERED: HYDROMORPHONE 2 MG/ML INJECTION IVP PRN (12:38)
--- NOTE | 2016-12-19 14:47 | Progress Note ---
<Britney Nair V - Last Filed: 12/19/16 14:40> Subjective: Venancio is seen this afternoon in follow up. He reports having generalized pain all day. He initially was sleeping on my arrival and feels he is getting more comfortable following repeated dose of Dilaudid. He denies having chest pain, shortness of breath or GI complaints. He reports he does not have much appetite. Objective Vital signs: Temperature 98.2 F 12/19/16 08:00 Pulse Rate 68 12/19/16 08:00 Respiratory Rate 18 12/19/16 13:30 Blood Pressure 129/57 12/19/16 08:00 Pulse Oximetry 97 12/19/16 13:30 Oxygen Delivery Method Nasal Cannula Oxygen Flow Rate 2 Weight: 224.2 kg - Constitutional Present: no acute distress - Routine HEENT Exam Head: Present: normocephalic, atraumatic Eye: Present: EOMI, PERRL - Routine Respiratory Exam Present: CTA bilaterally - Routine Cardiovascular Exam Present: RRR, S1, S2 - Routine Abdominal Exam Present: soft, normoactive bowel sounds - Routine Extremities Exam Present: edema (1-2+ bilateral lower ext) - Routine Skin Exam Present: intact, warm - Routine Neurological Exam Present: alert, oriented X3, CN II-XII intact. Absent: altered mental status - Routine Psychiatric Exam Present: normal affect, normal thought process Results - Labs CBC & Chem 7: 12/19/16 03:58 12/19/16 03:58 Assessment and Plan DVT Prophylaxis: SCD's Assessment and Plan: 12/19/16 Acute intractable pain d/t lytic lesions in spine, pelvis and also chest wall on left side with minimal relief from home regimen Ambulatory dysfunction Multiple Myeloma w/ recent dx and s/p chemotherapy Acute Dehydration POA COPD/Asthma - mildly symptomatic upon presentation and improved w/ neb albuterol treatment LÓPEZ on CPAP at night Cardiac arrhythmia - likely that of Afib and likely chronic and not paroxysmal however patient is unsure HTN - recent episodes of low BP in [facility] so patient has been taken off some of this meds Hypothyroidism Recent dx of Prostate Cancer, Debbie's-6, low-grade. DO NOT RESUSCITATE. Plan Change to inpatient status given continued IV fluid for hydration as well as IV pain medications required to treat pain. Oncology as per Dr Hernandez. He will receive next chemotherapy dose on 12/21 of Velcade. He continues on prophylactic Bactrim and acyclovir Increased PRN Dilaudid to 1-2mg IV in addition to Percocet PRN. Continue with lactulose scheduled twice a day, MiraLAX, senna plus for ongoing bowel motivation Blood pressure continues to be well controlled. Will continue with lisinopril and hydralazine, lisinopril, Spirolactone Continue volume IV fluids for ongoing hydration Continue to follow the routine laboratory studies. Sodium is slightly decreased today to 133. Hemoglobin stable at 9.5. We'll discuss further orders and plan of care with attending, Dr. Dhillon Sepsis Assessment - Evaluation Sepsis screening result: No Definite Risk Hospital Course Summary Disclaimer: The visit summary below is not to be considered part of the above Progress Note. Hospital Course: 12/19/16 Acute intractable pain d/t lytic lesions in spine, pelvis and also chest wall on left side with minimal relief from home regimen Ambulatory dysfunction Multiple Myeloma w/ recent dx and s/p chemotherapy Acute Dehydration POA COPD/Asthma - mildly symptomatic upon presentation and improved w/ neb albuterol treatment LÓPEZ on CPAP at night Cardiac arrhythmia - likely that of Afib and likely chronic and not paroxysmal however patient is unsure HTN - recent episodes of low BP in [facility] so patient has been taken off some of this meds Hypothyroidism Recent dx of Prostate Cancer, Corning's-6, low-grade. DO NOT RESUSCITATE. Plan Change to inpatient status given continued IV fluid for hydration as well as IV pain medications required to treat pain. Oncology as per Dr Hernandez. He will receive next chemotherapy dose on 12/21 of Velcade. He continues on prophylactic Bactrim and acyclovir Increased PRN Dilaudid to 1-2mg IV in addition to Percocet PRN. Continue with lactulose scheduled twice a day, MiraLAX, senna plus for ongoing bowel motivation Blood pressure continues to be well controlled. Will continue with lisinopril and hydralazine, lisinopril, Spirolactone Continue volume IV fluids for ongoing hydration Continue to follow the routine laboratory studies. Sodium is slightly decreased today to 133. Hemoglobin stable at 9.5. We'll discuss further orders and plan of care with attending, Dr. Dhillon <Rhona Dhillon Last Filed: 12/19/16 20:26> Objective Vital signs: Temperature 97.0 F 12/19/16 16:00 Pulse Rate 61 12/19/16 16:00 Respiratory Rate 16 12/19/16 19:25 Blood Pressure 103/49 12/19/16 16:00 Pulse Oximetry 99 12/19/16 16:00 Oxygen Delivery Method Nasal Cannula Oxygen Flow Rate 2 Results - Labs CBC & Chem 7: 12/19/16 03:58 12/19/16 03:58 Assessment and Plan Assessment and Plan: I have independently evaluated and examined this patient. I reviewed the chart, the patient's history, and the RESTAURANT FRONT MANAGER's documented findings as above. We discussed and formulated the assessment and plan as above with additions as below: Plans discussed with Dr. Hernandez further this morning. Anticipate patient transferring to [place] for radiation therapy as that is the only facility whose radiation oncology unit can manage patient of this patient's size. Its likely he will need to go to a half-way for assistance with transportation to and from radiation oncology while he is in [place] as he lives an hour and a half from there. interested in possibly staying at a motel instead but patient' s mobility is very poor and it's unclear that he could get in/out of the car to get to XRT. Patient reports ongoing back pain and complains that medications have really not helped thus far but at the time of this complaint had only used 4 doses of IV Dilaudid since admission. Please note that patient is on scheduled Percocet in addition to a fentanyl patch was which started yesterday. Examination reveals patient to be sitting on the edge of the bed, he is alert and appears mildly uncomfortable but not acutely distressed. Cardiac exam is regular. Respirations are nonlabored with diminished airflow throughout There is tenderness to palpation over the lower lumbar spine and the greatest area of localized pain is over the left SI joint. Calcium is slightly low today but he was treated for hypercalcemia recently with [facility] [place]-no intervention needed. Patient encouraged to work with physical therapy to maximize functional independence. Bowel regimen intensified, lactulose added as reports this was necessary in [place] for bowel function. Fentanyl increased to 50 g with patch changed tomorrow. Continue scheduled Percocet, Dilaudid increased as noted above. Borderline hyponatremia and thrombocytopenia present today; ANC stable. Hospital Course Summary Disclaimer: The visit summary below is not to be considered part of the above Progress Note.
[2016-12-19] MEDS ORDERED: TBO-FILGRASTIM 480mcg/0.8ml INJECTION SQ SCH (15:00)
[2016-12-19] MEDS: Oxycodone/Apap 10/325 1 TAB PO PRN (17:36)
[2016-12-19] MEDS: ENOXAPARIN 60 MG/0.6 ML INJECTION SQ SCH (17:37)
[2016-12-19] MEDS: SENNA + DOCUSATE TABLET PO SCH (20:58)
[2016-12-19] MEDS: NITROGLYCERIN PATCH REMOVAL TD SCH (21:22)
[2016-12-19] MEDS: POLYETHYL GLYCOL 3350 17gm PACKET PO SCH (21:23)
[2016-12-19] MEDS: LOVASTATIN 20 MG TABLET PO SCH (22:00)
[2016-12-20] MEDS: Oxycodone/Apap 10/325 1 TAB PO SCH ×6 (00:55→20:46)
[2016-12-20] MEDS: NS 1,000 ML IV SCH ×3 (01:43→21:42)
[2016-12-20] MEDS: HYDROMORPHONE 2 MG/ML INJECTION IVP PRN (04:29)
[2016-12-20] MEDS: LEVOTHYROXINE 100 MCG TABLET PO SCH (06:31)
[2016-12-20] MEDS: ALBUTEROL 2.5mg/3ml (0.083%) NEB AEROSOL SCH ×2 (07:10→20:45)
[2016-12-20] MEDS: SENNA + DOCUSATE TABLET PO SCH ×2 (09:00→20:46)
[2016-12-20] MEDS: HYDRALAZINE 25 MG TABLET PO SCH ×3 (09:00→17:07)
[2016-12-20] MEDS: POLYETHYL GLYCOL 3350 17gm PACKET PO SCH ×2 (09:03→20:47)
[2016-12-20] MEDS: ACYCLOVIR 200 MG CAPSULE PO SCH ×3 (09:03→21:08)
[2016-12-20] MEDS: SPIRONOLACTONE 25 MG TABLET PO SCH (09:03)
[2016-12-20] MEDS: LISINOPRIL 20 MG TABLET PO SCH (09:03)
[2016-12-20] MEDS: DOCUSATE SODIUM 100 MG CAPSULE PO SCH ×2 (09:03→20:46)
[2016-12-20] MEDS: ALLOPURINOL 300 MG TABLET PO SCH (09:03)
[2016-12-20] MEDS ORDERED: TBO-FILGRASTIM 480mcg/0.8ml INJECTION SQ ONE (09:30)
[2016-12-20] MEDS: NITROGLYCERIN 0.2 MG/HR PATCH TD SCH (12:01)
[2016-12-20] MEDS: ALBUTEROL 2.5mg/3ml (0.083%) NEB AEROSOL PRN ×2 (13:28→17:10)
--- NOTE | 2016-12-20 13:29 | Progress Note ---
Oncology Subjective The patient remains stable. He has no new complaints. He is having low back pain on narcotics. He states at the site of the bed with the family in the room, daughter and granddaughter. Exam Vital signs: Temperature 96.8 F 12/20/16 07:23 Pulse Rate 64 12/20/16 08:00 Respiratory Rate 18 12/20/16 07:23 Blood Pressure 145/65 H 12/20/16 07:23 Pulse Oximetry 97 12/20/16 07:23 Oxygen Delivery Method Nasal Cannula Oxygen Flow Rate 2 - Constitutional no acute distress, morbidly obese - Routine HEENT Exam ENT: Present: mucous membranes moist - Routine Chest/Breast/Axilla Exam Chest wall: Present: tenderness Comments: Left-sided chest wall or shoulder tenderness. - Routine Respiratory Exam Absent: accessory muscle use, rales, respiratory distress, rhonchi Comments: Clear to auscultation, no wheezing. - Routine Cardiovascular Exam Present: RRR. Absent: murmur, JVD - Routine Abdominal Exam Present: soft, normoactive bowel sounds Comments: Morbidly obese. - Routine Extremities Exam Present: edema Oncology Results - Labs CBC & Chem 7: 12/20/16 04:04 12/20/16 04:04 Labs: Short CBC 12/20/16 Range/Units 04:04 WBC 7.7 (4.5-11.0) T/MM3 Hgb 9.3 L (13.5-17.5) GM/DL Hct 29.3 L (41-53) % Plt Count 113 L (130-400) T/MM3 BMP 12/20/16 04:04 Sodium 134 Potassium 4.5 Chloride 107 Carbon Dioxide 25 BUN 25.0 H Creatinine 1.0 Glucose 89 Calcium 6.8 L Assessment and Plan Assessment and Plan: Assessment: 1. 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 1. Morbid oppositely making it difficult for treatment planning especially radiation therapy for the plasmacytoma compression fractures. He does not fit into most of the radiation therapy machines. The radiation therapy machine at [facility] fit up to 500 which may be the best option for him. Plan: We'll continue chemotherapy cyclophosphamide/Velcade/dexamethasone. He is due for day 11 Velcade and weekly dexamethasone tomorrow , 12/21/16. We'll continue Zometa every 4 weeks. Continue supportive measures with Bactrim, acyclovir and Diflucan. Continue fentanyl patch, Dilaudid and Percocet for pain control. business improvement manager will see the patient in the morning trying to arrange for a transfer to a skilled facility in [place]. Dr. Rosette Kruger consulted with the padding to see the patient in the office for possible palliative course of radiation therapy. The patient will follow up with Dr. Burden in [place]. - Time Spent With Patient Total time spent is greater than 50% in coordination of care (as documented) at patient's floor/unit and/or counseling patient: 25 - 35 minutes Sepsis Assessment - Evaluation Sepsis screening result: No Definite Risk
[2016-12-20] MEDS: LIDOCAINE 5% PATCH TOP SCH (15:15)
[2016-12-20] MEDS: LACTULOSE 20 GM/30 ML ORAL LIQUID PO SCH ×3 (15:15→22:26)
--- NOTE | 2016-12-20 15:17 | Progress Note ---
<Alejandra Garnica - Last Filed: 12/20/16 15:12> Subjective: Venancio is seen today in follow up. He is still on the edge of the bed. Family is with him, contributes to exam. He reports that he is still having quite a lot of pain in his lumbar spine and left shoulder. Has not had much relief with change in Fentanyl patch this morning (but that is to be expected). Also reports that he is still struggling with constipation. Has been taking Miralax and Colace w/o much effect. He did use Lactulose and Colace in [facility] with better effect. Objective Vital signs: Temperature 96.8 F 12/20/16 07:23 Pulse Rate 64 12/20/16 08:00 Respiratory Rate 15 12/20/16 13:28 Blood Pressure 145/65 H 12/20/16 07:23 Pulse Oximetry 97 12/20/16 07:23 Oxygen Delivery Method Nasal Cannula Oxygen Flow Rate 2 Weight: 224.4 kg - Constitutional Present: no acute distress, well developed, morbidly obese, cooperative - Routine HEENT Exam Head: Present: normocephalic, atraumatic Eye: Present: EOMI, PERRL, normal accommodation ENT: Present: mucous membranes moist Comments: Bruising under left mandible - Routine Respiratory Exam Present: decreased breath sounds, CTA bilaterally, distant breath sounds. Absent: rhonchi, stridor, wheezes, crackles - Routine Cardiovascular Exam Present: RRR, S1, S2, no murmur - Routine Abdominal Exam Present: soft, non distended, non tender - Routine Extremities Exam Present: no edema, non tender Comments: Limited exam due to pt. positioning. - Routine Back/Spine/Pelvis Exam Back/Spine: Present: paraspinal tenderness, muscle spasm Pelvis: Present: sacral tenderness, coccyx tenderness - Routine Musculoskeletal Exam Musculoskeletal: Present: no clubbing or cyanosis - Routine Skin Exam Present: intact, dry, warm - Routine Neurological Exam Present: alert, oriented X3, moving all extremities - Routine Psychiatric Exam Present: normal affect, cooperative Results - Labs CBC & Chem 7: 12/20/16 04:04 12/20/16 04:04 Assessment and Plan (1) Intractable pain Current visit: Yes Status: Acute (2) Metastatic cancer to bone Current visit: Yes Status: Acute (3) Hypocalcemia Current visit: Yes Status: Acute (4) Constipation Current visit: Yes Status: Acute (5) LÓPEZ (obstructive sleep apnea) Current visit: Yes Status: Chronic (6) Morbid (severe) obesity due to excess calories Current visit: Yes Status: Chronic (7) Cardiac arrhythmia Current visit: Yes Status: Chronic (8) HTN (hypertension) Current visit: Yes Status: Chronic (9) Dehydration Current visit: Yes Status: Acute (10) Generalized weakness Current visit: Yes Status: Acute (11) Prostate cancer Current visit: Yes Status: Chronic (12) Multiple myeloma Current visit: Yes Status: Acute DVT Prophylaxis: Lovenox Resuscitation Status: Do Not Resuscitate Assessment and Plan: 12/20/16 *Multiple myeloma with intractable pain of malignancy- Chemo/XRT per Dr. Burden. Will likely need to go to [place] for XRT due to size. There is concern that he will need NH placement during radiation therapy as he continues to have difficulty with standing. Allopurinol for prevention of tumor lysis syndrome. *Acute pain of malignancy- Continue Fentanyl- increased today. Continue Scheduled Percocet and low dose PRN percocet. Will add lidoderm to left shoulder and lower back. Could consider adding Gabapentin +/_ Ford-2 or NSAID due to bony pain. Will need close monitoring or renal function. Daughter was reluctant to try Gabapentin due to "brain fogginess" from chemo. *HTN- Lisinopril/Metoprolol/Aldactone/hydralazine. Potassium is normal. *LÓPEZ- CPAP *Constipation- Add Lactulose. Continue Dulcosate. Encourage activity. Monitor hydration status. *Hypocalcemia- recent tx for hypercalcemia. Monitor for now. Assess Inz. Ca in AM. *DVT px- Lovenox/SCDs. *DC planning- Will need help with likely placement in [place] for ongoing care and radiation. - Time spent with patient 25 - 35 minutes Sepsis Assessment - Evaluation Sepsis screening result: No Definite Risk Hospital Course Summary Disclaimer: The visit summary below is not to be considered part of the above Progress Note. Hospital Course: 12/19/16 Acute intractable pain d/t lytic lesions in spine, pelvis and also chest wall on left side with minimal relief from home regimen Ambulatory dysfunction Multiple Myeloma w/ recent dx and s/p chemotherapy Acute Dehydration POA COPD/Asthma - mildly symptomatic upon presentation and improved w/ neb albuterol treatment LÓPEZ on CPAP at night Cardiac arrhythmia - likely that of Afib and likely chronic and not paroxysmal however patient is unsure HTN - recent episodes of low BP in [facility] so patient has been taken off some of this meds Hypothyroidism Recent dx of Prostate Cancer, Debbie's-6, low-grade. DO NOT RESUSCITATE. Plan Change to inpatient status given continued IV fluid for hydration as well as IV pain medications required to treat pain. Oncology as per Dr Hernandez. He will receive next chemotherapy dose on 12/21 of Velcade. He continues on prophylactic Bactrim and acyclovir Increased PRN Dilaudid to 1-2mg IV in addition to Percocet PRN. Continue with lactulose scheduled twice a day, MiraLAX, senna plus for ongoing bowel motivation Blood pressure continues to be well controlled. Will continue with lisinopril and hydralazine, lisinopril, Spirolactone Continue volume IV fluids for ongoing hydration Continue to follow the routine laboratory studies. Sodium is slightly decreased today to 133. Hemoglobin stable at 9.5. We'll discuss further orders and plan of care with attending, Dr. Dhillon 12/20/16 15:30 *Multiple myeloma with intractable pain of malignancy- Chemo/XRT per Dr. Burden. Will likely need to go to [place] for XRT due to size. There is concern that he will need NH placement during radiation therapy as he continues to have difficulty with standing. Allopurinol for prevention of tumor lysis syndrome. *Acute pain of malignancy- Continue Fentanyl- increased today. Continue Scheduled Percocet and low dose PRN percocet. Will add lidoderm to left shoulder and lower back. Could consider adding Gabapentin +/_ Ford-2 or NSAID due to bony pain. Will need close monitoring or renal function. Daughter was reluctant to try Gabapentin due to "brain fogginess" from chemo. *HTN- Lisinopril/Metoprolol/Aldactone. Potassium is normal. *LÓPEZ- CPAP *Constipation- Add Lactulose. Continue Dulcosate. Encourage activity. Monitor hydration status. *DVT px- Lovenox/SCDs. *DC planning- Will need help with likely placement in [place] for ongoing care and radiation. <Rhona Dhillon - Last Filed: 12/20/16 21:00> Objective Vital signs: Temperature 98.1 F 12/20/16 15:20 Pulse Rate 81 12/20/16 16:00 Respiratory Rate 16 12/20/16 17:11 Blood Pressure 131/71 12/20/16 15:20 Pulse Oximetry 99 12/20/16 15:20 Oxygen Delivery Method Nasal Cannula Oxygen Flow Rate 2 Results - Labs CBC & Chem 7: 12/20/16 04:04 12/20/16 04:04 Assessment and Plan (1) Intractable pain Current visit: Yes Status: Acute (2) Metastatic cancer to bone Current visit: Yes Status: Acute (3) Hypocalcemia Current visit: Yes Status: Acute (4) Constipation Current visit: Yes Status: Acute (5) LÓPEZ (obstructive sleep apnea) Current visit: Yes Status: Chronic (6) Morbid (severe) obesity due to excess calories Current visit: Yes Status: Chronic (7) Cardiac arrhythmia Current visit: Yes Status: Chronic (8) HTN (hypertension) Current visit: Yes Status: Chronic (9) Dehydration Current visit: Yes Status: Acute (10) Generalized weakness Current visit: Yes Status: Acute (11) Prostate cancer Current visit: Yes Status: Chronic (12) Multiple myeloma Current visit: Yes Status: Acute Assessment and Plan: I have independently evaluated and examined this patient. I reviewed the chart, the patient's history, and the STERILE PRODUCTS PROCESSOR's documented findings as above. We discussed and formulated the assessment and plan as above with additions as below: Mr. Alexis reports he continues to have "aches and pains". He is moving his left arm more freely than he did prior days. Pain is still intense at times but he was able to get out of bed several times yesterday. Constipation is ongoing, he denied acute dyspnea or lightheadedness. Morbidly obese male, NAD, alert, smiling Respirations nonlabored with decreased airflow throughout, breath sounds clear Large pannus, abdomen soft +2 lower extremity edema Laboratory data reviewed-corrected calcium 7.7 yesterday; slightly low but given recent treatment for hypercalcemia do not anticipate interventions and subsequently don't believe I denies calcium needed. Scheduled lactulose in addition to as needed lactulose initiated earlier today. Case management to assist in discharge planning in the morning. Family discussing penitentiary-I advised him that would likely require that they delay radiation therapy. Hospital Course Summary Disclaimer: The visit summary below is not to be considered part of the above Progress Note.
[2016-12-20] MEDS: ENOXAPARIN 60 MG/0.6 ML INJECTION SQ SCH (17:07)
[2016-12-20] MEDS: LOVASTATIN 20 MG TABLET PO SCH (21:08)
[2016-12-20] MEDS: LIDOCAINE PATCH REMOVAL TOP SCH (21:10)
[2016-12-20] MEDS: NITROGLYCERIN PATCH REMOVAL TD SCH (21:11)
[2016-12-21] MEDS: Oxycodone/Apap 10/325 1 TAB PO SCH ×7 (00:05→23:32)
[2016-12-21] MEDS: HYDROMORPHONE 2 MG/ML INJECTION IVP PRN ×3 (03:41→16:41)
[2016-12-21] MEDS: LEVOTHYROXINE 100 MCG TABLET PO SCH (07:07)
[2016-12-21] MEDS: ALBUTEROL 2.5mg/3ml (0.083%) NEB AEROSOL SCH ×3 (07:14→18:59)
[2016-12-21] MEDS: SENNA + DOCUSATE TABLET PO SCH ×2 (08:57→20:31)
[2016-12-21] MEDS: SPIRONOLACTONE 25 MG TABLET PO SCH (08:57)
[2016-12-21] MEDS: DOCUSATE SODIUM 100 MG CAPSULE PO SCH ×2 (08:57→20:31)
[2016-12-21] MEDS: ALLOPURINOL 300 MG TABLET PO SCH (08:57)
[2016-12-21] MEDS: HYDRALAZINE 25 MG TABLET PO SCH ×3 (08:57→17:50)
[2016-12-21] MEDS: LIDOCAINE 5% PATCH TOP SCH (08:58)
[2016-12-21] MEDS: LISINOPRIL 20 MG TABLET PO SCH (08:58)
[2016-12-21] MEDS: ACYCLOVIR 200 MG CAPSULE PO SCH ×3 (08:58→20:28)
[2016-12-21] MEDS: LACTULOSE 20 GM/30 ML ORAL LIQUID PO SCH (08:58)
[2016-12-21] MEDS: POLYETHYL GLYCOL 3350 17gm PACKET PO SCH ×2 (09:01→20:31)
[2016-12-21] MEDS: NITROGLYCERIN PATCH REMOVAL TD SCH ×2 (12:08→20:35)
[2016-12-21] MEDS: NITROGLYCERIN 0.2 MG/HR PATCH TD SCH (12:08)
[2016-12-21] MEDS: Oxycodone/Apap 10/325 1 TAB PO PRN ×2 (12:09→22:23)
--- NOTE | 2016-12-21 12:51 | Progress Note ---
Oncology Subjective Sitting on side of bed, , daughter at bedside. Alert and oriented, answers questions appropriately. Denies fever, chills; often feels cold. Infrequent night sweats, states occurred last night. No headaches. Has floater left eye; states had CT brain done as outpatient. No sore throat, earache, or chest pain. Chronic shortness of air and infrequent nonproductive cough, denies worsening symptoms. He is eating and drinking normally. Did have constipation,;states 4 bowel movements yesterday, initially firm, last two stools were pudding consistency. Denies dysuria, hematuria or incontinence. Chief complaint is his chronic, persistent pain left shoulder, left upper arm, and lower back. General: No fever, + infrequent night sweats. Denies weight change. Eyes: No redness, no pain, no diplopia. ENT: No mouth sores, no trouble swallowing Cardiac: No chest pain no palpitations Pulmonary: Chronic shortness of air, increases with exertion. Infrequent nonproductive cough. Abdomen: No pain, no nausea vomiting, no diarrhea or constipation : No urgency, frequency, dysuria, or hematuria Musculoskeletal: Left shoulder/upper arm pain, lower back pain, reports is constant. Neurological: No headaches, no focal weakness Skin: No rash, no sores Psychiatric: No anxiety, no depression <Romina Santiago - 12/21/16 13:59> Exam Vital signs: Temperature 97.2 F 12/21/16 07:00 Pulse Rate 86 12/21/16 16:00 Respiratory Rate 16 12/21/16 13:48 Blood Pressure 121/64 12/21/16 15:40 Pulse Oximetry 95 12/21/16 15:40 Oxygen Delivery Method Nasal Cannula Oxygen Flow Rate 2 <Benjamín Krishna - 12/21/16 17:44> Temperature 97.2 F 12/21/16 07:00 Pulse Rate 84 12/21/16 07:00 Respiratory Rate 16 12/21/16 07:14 Blood Pressure 92/56 12/21/16 12:14 Pulse Oximetry 96 12/21/16 07:14 Oxygen Delivery Method Nasal Cannula Oxygen Flow Rate 2 <Romina Santiago - 12/21/16 12:55> - Constitutional no acute distress, morbidly obese <Romina Santiago - 12/21/16 12:55> - Routine HEENT Exam Head: Present: normocephalic <Romina Santiago 12/21/16 12:55> ENT: Present: mucous membranes moist <Romina Santiago 12/21/16 12:55> - Detailed ENT Exam Oral mucosa: Present: moist. Absent: lesions <Romina Santiago 12/21/16 13:59 > - Routine Neck Exam Present: supple. Absent: tenderness, swelling <Romina Santiago 12/21/16 12: 55> - Routine Chest/Breast/Axilla Exam Chest wall: Present: tenderness (left axillary area) <Benjamín Krishna - 17:44> - Routine Respiratory Exam Present: decreased breath sounds. Absent: rhonchi, wheezes, crackles <Romina Santiago 12/21/16 12:55> - Routine Cardiovascular Exam Present: RRR, no murmur <Romina Santiago 12/21/16 12:55> - Routine Abdominal Exam Present: soft. Absent: tenderness <Romina Santiago 12/21/16 13:59> Comments: Pannus drapes over the lower abdomen [address] to the floor while sitting <Benjamín Krishna - 12/21/16 17:44> Morbidly obese/obtunded <Romina Santiago 12/21/16 12:55> - Routine Extremities Exam Present: edema (1+ bilateral lower extremities to knee. Bronzing bilateral anterior lower extremities.). Absent: non tender <Romina Santiago 12/21/16 13:59> - Routine Back/Spine/Pelvis Exam Back/Spine: Present: vertebral tenderness (lumbar area) <Romina Santiago 03/30 12:55> - Routine Skin Exam Present: intact, warm. Absent: petechiae <Romina Santiago 12/21/16 13:59> - Routine Neurological Exam Present: alert, oriented X3, normal speech <Romina Santiago 12/21/16 13:59> - Routine Psychiatric Exam Present: normal affect, cooperative <Romina Santiago 12/21/16 13:59> Oncology Results - Labs CBC & Chem 7: 12/21/16 04:16 12/21/16 04:16 <Benjamín Krishna - 12/21/16 17:44> Labs: Short CBC 12/21/16 Range/Units 04:16 WBC 8.8 (4.5-11.0) T/MM3 Hgb 9.1 L (13.5-17.5) GM/DL Hct 28.9 L (41-53) % Plt Count 97 L (130-400) T/MM3 [facility] 12/21/16 04:16 Sodium 134 Potassium 4.6 Chloride 108 H Carbon Dioxide 23 BUN 29.0 H Creatinine 1.1 Glucose 88 Calcium 6.7 L Liver Function 12/21/16 Range/Units 04:16 Albumin 2.8 L (3.5-5.0) G/DL Laboratory Tests 12/17/16 12/18/16 12/19/16 21:28 04:50 03:58 WBC Hgb Plt Count 126 L 126 L Creatinine Calcium 7.1 L Albumin 12/20/16 12/21/16 12/21/16 04:04 04:16 04:16 WBC 8.8 Hgb 9.1 L Plt Count 113 L 97 L Creatinine 1.1 Calcium 6.7 L Albumin 2.8 L Hypocalcemia, platelets decreasing current value 97K. We'll need to watch Lovenox <Benjamín Krishna D - 12/21/16 17:44> Short CBC 12/21/16 Range/Units 04:16 WBC 8.8 (4.5-11.0) T/MM3 Hgb 9.1 L (13.5-17.5) GM/DL Hct 28.9 L (41-53) % Plt Count 97 L (130-400) T/MM3 [facility] 12/21/16 04:16 Sodium 134 Potassium 4.6 Chloride 108 H Carbon Dioxide 23 BUN 29.0 H Creatinine 1.1 Glucose 88 Calcium 6.7 L Liver Function 12/21/16 Range/Units 04:16 Albumin 2.8 L (3.5-5.0) G/DL <Romina Santiago L - 12/21/16 12:55> Assessment and Plan Assessment and Plan: Patient examined, chart reviewed agree with documentation by Arlene Santiago. Multiple myeloma just starting therapy. In need of radiation therapy for pain control however weight is a significant problem. He is currently at 493 pounds in the weight limit of the table at [facility] is 500 pounds he had dexamethasone today. Velcade is ordered for tomorrow. Platelets have decreased her currently 90 7K and will need to watch this closely with the low molecular weight heparin prophylaxis. G-CSF as ordered for Wednesday. Participated in development of the plan of care of this patient <Benjamín Krishna - 12/21/16 17:44> Assessment: 1. 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 1. Morbid oppositely making it difficult for treatment planning especially radiation therapy for the plasmacytoma compression fractures. He does not fit into most of the radiation therapy machines. The radiation therapy machine at [facility] fit up to 500 which may be the best option for him. Plan: We'll continue chemotherapy cyclophosphamide/Velcade/dexamethasone. He is due for day 11 Velcade and weekly dexamethasone, to be given 12/21/16. We'll continue Zometa every 4 weeks. Continue supportive measures with Bactrim, acyclovir and Diflucan. Continue fentanyl patch, Dilaudid and Percocet for pain control. Encouraged movement/physical therapy participation as tolerated. Case management is working on placement; patient and feel he is not safe at home in his current medical/physical state. <Romina Santiago - 12/21/16 13:59> - Time Spent With Patient Total time spent is greater than 50% in coordination of care (as documented) at patient's floor/unit and/or counseling patient: <Benjamín Krishna - 12/21/16 17:44> Total time spent is greater than 50% in coordination of care (as documented) at patient's floor/unit and/or counseling patient: <Romina Santiago - 12/21/16 12:55> 25 - 35 minutes <Romina Santiago - 12/21/16 12:55> Sepsis Assessment - Evaluation Sepsis screening result: No Definite Risk <Romina Santiago - 12/21/16 12:55>
[2016-12-21] MEDS ORDERED: DEXAMETHASONE 4 MG TABLET PO SCH ×2 (14:00)
[2016-12-21] MEDS: NS 1,000 ML IV SCH (17:04)
--- NOTE | 2016-12-21 17:19 | Progress Note ---
Subjective: F/U: Intractable pain from MM Doing fair overall. Pain varies, meds help take the edge off but not completely resolve discomfort. Bowels did start to move last night. Notes slight nausea occasionally. Breathing stable-SOA with activities but little cough/congestion. Urinating well. No f/c. Objective Vital signs: Temperature 97.2 F 12/21/16 07:00 Pulse Rate 86 12/21/16 16:00 Respiratory Rate 16 12/21/16 13:48 Blood Pressure 121/64 12/21/16 15:40 Pulse Oximetry 95 12/21/16 15:40 Oxygen Delivery Method Nasal Cannula Oxygen Flow Rate 2 Weight: 224.4 kg - Constitutional Present: mild distress, well nourished, well developed, morbidly obese, cooperative - Routine HEENT Exam Head: Present: normocephalic, atraumatic Eye: Present: EOMI, PERRL ENT: Present: mucous membranes moist - Routine Respiratory Exam Present: decreased breath sounds, CTA bilaterally, distant breath sounds, diminished air movement. Absent: accessory muscle use, respiratory distress - Routine Cardiovascular Exam Present: RRR - Routine Abdominal Exam Present: soft, non distended, non tender - Routine Extremities Exam Present: edema (+3 B LE), pulses intact. Absent: cyanosis, clubbing - Routine Musculoskeletal Exam Musculoskeletal: Present: no clubbing or cyanosis - Routine Skin Exam Present: intact, warm - Routine Neurological Exam Present: alert, oriented X3, CN II-XII intact, vision grossly intact, hearing grossly intact. Absent: motor deficit - Routine Psychiatric Exam Present: normal affect, normal thought process, cooperative Results - Labs CBC & Chem 7: 12/21/16 04:16 12/21/16 04:16 Assessment and Plan (1) Intractable pain Current visit: Yes Status: Acute (2) Multiple myeloma Current visit: Yes Status: Acute (3) Metastatic cancer to bone Current visit: Yes Status: Acute (4) Hypocalcemia Problem details: Recently treated for Hypercalcemia Current visit: Yes Status: Acute (5) Constipation Current visit: Yes Status: Acute (6) LÓPEZ (obstructive sleep apnea) Current visit: Yes Status: Chronic (7) Cardiac arrhythmia Current visit: Yes Status: Chronic (8) HTN (hypertension) Current visit: Yes Status: Chronic (9) Dehydration Current visit: Yes Status: Acute (10) Generalized weakness Current visit: Yes Status: Acute (11) Prostate cancer Current visit: Yes Status: Chronic (12) Morbid (severe) obesity due to excess calories Current visit: Yes Status: Chronic DVT Prophylaxis: Lovenox Resuscitation Status: Do Not Resuscitate Assessment and Plan: Lab stable. BP with some decrease at times-possible pain medications, but overall tolerating narcotics well. Continue with pain control - pt more comfortable overall. As bowel moving, will change lactulose to as needed. Continue with bowel motivation. CM working on outpatient arrangements for Radiation in [place]. Trying to find facility for him to stay that is closer to [place] than home as transportation logistics difficult for patient. Case discussed with CM. Time spent with patient care 25 minutes. High risk medication involved: IV Dilaudid. - Time spent with patient 25 - 35 minutes Sepsis Assessment - Evaluation Sepsis screening result: No Definite Risk Hospital Course Summary Disclaimer: The visit summary below is not to be considered part of the above Progress Note. Hospital Course: 12/17/16 1) Acute intractable pain d/t lytic lesions in spine, pelvis and also chest wall on left side with minimal relief from home regimen 2) Multiple Myeloma w/ recent dx and s/p chemotherapy 3) Acute Dehydration POA 4) COPD/Asthma - mildly symptomatic upon presentation and improved w/ neb albuterol treatment 5) LÓPEZ on CPAP at night 6) Cardiac arrhythmia - likely that of Afib and likely chronic and not paroxysmal however patient is unsure 7) HTN - recent episodes of low BP in [facility] so patient has been taken off some of this meds 8) Hypothyroidism 9) Recent dx of Prostate Cancer Plan: Admit to Hospitalist service direct admission and consult Oncology Labs upon admission - CMP, CBC and in the AM that of BMP and CBC Albuterol q 4 hours prn Percocet 10/325mg po q 4 hours prn Dilaudid 1 mg IV q 3 hours for breakthrough pain Consider topical low back therapies to augment pain mgt as well, e.g. Lidoderm patch RT consult - CPAP at night - patient did not bring his from home IVFs - NS to run at 100cc/hour and reassess for continued IVF need in the AM Telemetry May use port Home meds reviewed and restarted as indicated Lovenox and SCDs for DVT prophylaxis 12/18/[address] Hernandez, fentanyl patch initiated, Percocet scheduled to try to improve pain control. PT/OT consults. Chemotherapy continued with Velcade today; next dose due 12/21. Continue tumor lysis regimen and prophylactic Bactrim and acyclovir. Continue low-volume IV fluids. Reassess renal function and CBC in a.m. Bowel regimen initiated. Lovenox for DVT prophylaxis. Home regimen for blood pressure/hypothyroidism continued. Outpatient records/transfer records reviewed. High-risk medications-IV narcotics /chemotherapy in use. 12/19/16 Change to inpatient status given continued IV fluid for hydration as well as IV pain medications required to treat pain. Oncology as per Dr Hernandez. He will receive next chemotherapy dose on 12/21 of Velcade. He continues on prophylactic Bactrim and acyclovir Increased PRN Dilaudid to 1-2mg IV in addition to Percocet PRN. Continue with lactulose scheduled twice a day, MiraLAX, senna plus for ongoing bowel motivation Blood pressure continues to be well controlled. Will continue with lisinopril and hydralazine, lisinopril, Spirolactone Continue volume IV fluids for ongoing hydration Continue to follow the routine laboratory studies. Sodium is slightly decreased today to 133. Hemoglobin stable at 9.5. We'll discuss further orders and plan of care with attending, Dr. Dhillon 12/20/16 *Multiple myeloma with intractable pain of malignancy- Chemo/XRT per Dr. Burden. Will likely need to go to [place] for XRT due to size. There is concern that he will need NH placement during radiation therapy as he continues to have difficulty with standing. Allopurinol for prevention of tumor lysis syndrome. *Acute pain of malignancy- Continue Fentanyl- increased today. Continue Scheduled Percocet and low dose PRN percocet. Will add lidoderm to left shoulder and lower back. Could consider adding Gabapentin +/_ Ford-2 or NSAID due to bony pain. Will need close monitoring or renal function. Daughter was reluctant to try Gabapentin due to "brain fogginess" from chemo. *HTN- Lisinopril/Metoprolol/Aldactone. Potassium is normal. *LÓPEZ- CPAP *Constipation- Add Lactulose. Continue Dulcosate. Encourage activity. Monitor hydration status. *DVT px- Lovenox/SCDs. *DC planning- Will need help with likely placement in [place] for ongoing care and radiation. 12/21/16 Doing fair overall. Pain varies, meds help take the edge off but not completely resolve discomfort. Bowels did start to move last night. Notes slight nausea occasionally. Breathing stable-SOA with activities but little cough/congestion. Urinating well. No f/c. Lab stable. BP with some decrease at times-possible pain medications, but overall tolerating narcotics well. Continue with pain control - pt more comfortable overall. As bowel moving, will change lactulose to as needed. Continue with bowel motivation. CM working on outpatient arrangements for Radiation in [place]. Trying to find facility for him to stay that is closer to [place] than home as transportation logistics difficult for patient.
[2016-12-21] MEDS: ENOXAPARIN 60 MG/0.6 ML INJECTION SQ SCH (17:50)
[2016-12-21] MEDS: LOVASTATIN 20 MG TABLET PO SCH ×2 (20:28→22:24)
[2016-12-21] MEDS: SULFAMETHOXAZOLE/TMP 800 MG/160 MG DS TABLET PO SCH (20:29)
[2016-12-21] MEDS: LIDOCAINE PATCH REMOVAL TOP SCH (20:30)
[2016-12-22] MEDS: NS 1,000 ML IV SCH (04:48)
[2016-12-22] MEDS: Oxycodone/Apap 10/325 1 TAB PO SCH ×5 (04:51→19:49)
[2016-12-22] MEDS: LEVOTHYROXINE 100 MCG TABLET PO SCH (06:01)
[2016-12-22] MEDS ORDERED: BORTEZOMIB 3.5 MG SQ ONE (09:00)
[2016-12-22] MEDS: NITROGLYCERIN 0.2 MG/HR PATCH TD SCH (09:11)
[2016-12-22] MEDS: LIDOCAINE 5% PATCH TOP SCH (09:11)
[2016-12-22] MEDS: ACYCLOVIR 200 MG CAPSULE PO SCH ×3 (09:12→21:43)
[2016-12-22] MEDS: SENNA + DOCUSATE TABLET PO SCH ×2 (09:12→21:43)
[2016-12-22] MEDS: SPIRONOLACTONE 25 MG TABLET PO SCH (09:13)
[2016-12-22] MEDS: LISINOPRIL 20 MG TABLET PO SCH (09:13)
[2016-12-22] MEDS: ALLOPURINOL 300 MG TABLET PO SCH (09:13)
[2016-12-22] MEDS: HYDRALAZINE 25 MG TABLET PO SCH ×3 (09:13→17:55)
[2016-12-22] MEDS: DOCUSATE SODIUM 100 MG CAPSULE PO SCH ×2 (09:16→21:43)
[2016-12-22] MEDS: POLYETHYL GLYCOL 3350 17gm PACKET PO SCH ×2 (09:16→21:43)
[2016-12-22] MEDS: HYDROMORPHONE 2 MG/ML INJECTION IVP PRN ×2 (12:22→14:56)
--- NOTE | 2016-12-22 13:02 | Progress Note ---
Oncology Subjective I have seen and examined the patient. I developed the plan of care. <Jamin Hernandez - 12/23/16 20:00> Sitting on bedside, alone in room. Reports persistent shoulder/back/bone pain, denies increased symptoms but continues to be present chronically. He is eating and drinking normally. No fever, chills, night sweats. No new complaints. General: No fever, no night sweats Eyes: No redness, no pain, no diplopia ENT: No mouth sores, no trouble swallowing Cardiac: No chest pain no palpitations Pulmonary: Positive shortness of air with exertion, denies increased symptoms. Abdomen: No pain, no nausea vomiting, no diarrhea or constipation : No urgency, frequency, dysuria, or hematuria Musculoskeletal: Pain left shoulder and lower back, constant. Neurological: No headaches, no focal weakness Skin: No rash, no sores Psychiatric: No anxiety, no depression <Romina Santiago - 12/22/16 13:13> Exam Vital signs: Temperature 98.5 F 12/23/16 15:00 Pulse Rate 70 12/23/16 16:00 Respiratory Rate 16 12/23/16 19:37 Blood Pressure 112/58 12/23/16 17:44 Pulse Oximetry 94 12/23/16 15:36 Oxygen Delivery Method Nasal Cannula Oxygen Flow Rate 2 <Jamin Hernandez - 12/23/16 20:00> Temperature 95.5 F L 12/22/16 07:00 Pulse Rate 85 12/22/16 08:00 Respiratory Rate 18 12/22/16 07:00 Blood Pressure 144/61 H 12/22/16 07:00 Pulse Oximetry 97 12/22/16 07:00 Oxygen Delivery Method Nasal Cannula Oxygen Flow Rate 2 <Romina Santiago - 12/22/16 13:03> - Constitutional no acute distress, morbidly obese <Romina Santiago - 12/22/16 13:03> - Routine HEENT Exam Head: Present: normocephalic. Absent: facial swelling <Romina Santiago - 12/22 13:03> Eye: Present: EOMI, conjunctivae pink. Absent: scleral injection <Romina Santiago - 12/22/16 13:03> ENT: Present: mucous membranes moist <Romina Santiago - 12/22/16 13:03> - Routine Neck Exam Present: supple. Absent: lymphadenopathy, tenderness <Romina Santiago - 13:03> - Routine Respiratory Exam Present: distant breath sounds. Absent: wheezes, crackles <Romina Santiago - 12/22/16 13:03> - Routine Cardiovascular Exam Present: RRR, tachycardia <Romina Santiago 12/22/16 13:03> - Routine Abdominal Exam Present: soft (significant abdominal obesity/) <Romina Santiago - 12/22/16 13: 03> Comments: Pannus drapes over the lower abdomen [address] to the floor while sitting <Romina Santiago 12/22/16 13:05> - Routine Extremities Exam Present: edema (1+ edema bilateral lower extremities with bronzing anterior lower extremities). Absent: non tender <Romina Santiago 12/22/16 13:03> - Routine Back/Spine/Pelvis Exam Back/Spine: Present: vertebral tenderness (MR spine) <Romina Santiago 13:03> - Routine Skin Exam Present: intact, pallor <Romina Santiago 12/22/16 13:03> - Routine Neurological Exam Present: alert, oriented X3, moving all extremities <Romina Santiago 13:03> - Routine Psychiatric Exam Present: normal affect, cooperative <Romina Santiago 12/22/16 13:03> Oncology Results - Labs CBC & Chem 7: 12/23/16 10:31 12/23/16 10:31 <Jamin Hernandez - 12/23/16 20:00> Labs: Short CBC 12/23/16 Range/Units 10:31 WBC 8.9 (4.5-11.0) T/MM3 Hgb 9.5 L (13.5-17.5) GM/DL Hct 29.8 L (41-53) % Plt Count 109 L (130-400) T/MM3 [facility] 12/23/16 10:31 Sodium 138 Potassium 4.9 Chloride 108 H Carbon Dioxide 22 BUN 41.0 H Creatinine 1.4 D Glucose 148 H Calcium 7.6 L <Jamin Hernandez - 12/23/16 20:00> Assessment and Plan Assessment and Plan: Assessment: 1. 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 1. Morbid oppositely making it difficult for treatment planning especially radiation therapy for the plasmacytoma compression fractures. He does not fit into most of the radiation therapy machines. At this time, placement in [place] has not been established; having difficulty finding living facility. Dr. Hernandez visited with patient and machine adjuster leader case trim. Will check if patient is candidate to receive inpatient radiation therapy in [place]. Plan: Patient received day 11 Velcade today. Received weekly dexamethasone yesterday. Plan Neupogen tomorrow and 12/24/16. Continue Zometa every 4 weeks. Continue supportive measures with Bactrim, acyclovir and Diflucan. Continue fentanyl patch, Dilaudid and Percocet for pain control. Continue supportive care. Discussed importance of movement/daily activity as tolerated with patient. Will await decision on inpatient radiation in [place]. <Romina Santiago - 12/22/16 13:13> - Time Spent With Patient Total time spent is greater than 50% in coordination of care (as documented) at patient's floor/unit and/or counseling patient: <Jamin Hernandez - 12/23/16 20:00> Total time spent is greater than 50% in coordination of care (as documented) at patient's floor/unit and/or counseling patient: <Romina Santiago - 12/22/16 13:03> 25 - 35 minutes <Romina Santiago - 12/22/16 13:13> Sepsis Assessment - Evaluation Sepsis screening result: No Definite Risk <Romina Santiago - 12/22/16 13:03>
[2016-12-22] MEDS: ALBUTEROL 2.5mg/3ml (0.083%) NEB AEROSOL PRN (14:20)
[2016-12-22] MEDS ORDERED: FUROSEMIDE 20 MG TABLET PO ONE (15:05)
--- NOTE | 2016-12-22 15:05 | Progress Note ---
<Britney Nair V - Last Filed: 12/22/16 14:59> Subjective: Venancio is seen this afternoon while resting in bed with at his side. He is alert and pleasant. Reports that he has been sitting up on the side of the bed more today and notes increased swelling to bilateral feet. Denies chest pain, shortness of breath or GI complaints. working on bowel motivation. Objective Vital signs: Temperature 95.5 F L 12/22/16 07:00 Pulse Rate 85 12/22/16 08:00 Respiratory Rate 24 12/22/16 14:13 Blood Pressure 144/61 H 12/22/16 07:00 Pulse Oximetry 98 12/22/16 14:13 Oxygen Delivery Method Nasal Cannula Oxygen Flow Rate 2 Weight: 224.4 kg - Constitutional Present: no acute distress - Routine HEENT Exam Head: Present: normocephalic Eye: Present: EOMI, PERRL - Routine Respiratory Exam Present: CTA bilaterally - Routine Cardiovascular Exam Present: RRR, S1, S2 - Routine Abdominal Exam Present: soft - Routine Extremities Exam Present: edema (trace to bilateral lower ext) - Routine Back/Spine/Pelvis Exam Back/Spine: Present: full ROM - Routine Skin Exam Present: intact, dry, warm - Routine Neurological Exam Present: alert, oriented X3, CN II-XII intact Results - Labs CBC & Chem 7: 12/22/16 12:35 12/22/16 12:35 Assessment and Plan (1) Intractable pain Current visit: Yes Status: Acute (2) Metastatic cancer to bone Current visit: Yes Status: Acute (3) Hypocalcemia Problem details: Recently treated for Hypercalcemia Current visit: Yes Status: Acute (4) Constipation Current visit: Yes Status: Acute (5) LÓPEZ (obstructive sleep apnea) Current visit: Yes Status: Chronic (6) Morbid (severe) obesity due to excess calories Current visit: Yes Status: Chronic (7) Cardiac arrhythmia Current visit: Yes Status: Chronic (8) HTN (hypertension) Current visit: Yes Status: Chronic (9) Dehydration Current visit: Yes Status: Acute (10) Generalized weakness Current visit: Yes Status: Acute (11) Prostate cancer Current visit: Yes Status: Chronic (12) Multiple myeloma Current visit: Yes Status: Acute Assessment and Plan: 12/22/16 Discontinue IV fluids as he is taking in adequate PO. Lower ext edema present likely from siting on edge of bed today Will give a one time dose of Lasix 20mg for diuresis Continued to work with CM for ongoing discharge plan and placement Sepsis Assessment - Evaluation Sepsis screening result: No Definite Risk Hospital Course Summary Disclaimer: The visit summary below is not to be considered part of the above Progress Note. Hospital Course: 12/17/16 1) Acute intractable pain d/t lytic lesions in spine, pelvis and also chest wall on left side with minimal relief from home regimen 2) Multiple Myeloma w/ recent dx and s/p chemotherapy 3) Acute Dehydration POA 4) COPD/Asthma - mildly symptomatic upon presentation and improved w/ neb albuterol treatment 5) LÓPEZ on CPAP at night 6) Cardiac arrhythmia - likely that of Afib and likely chronic and not paroxysmal however patient is unsure 7) HTN - recent episodes of low BP in [facility] so patient has been taken off some of this meds 8) Hypothyroidism 9) Recent dx of Prostate Cancer Plan: Admit to Hospitalist service direct admission and consult Oncology Labs upon admission - CMP, CBC and in the AM that of BMP and CBC Albuterol q 4 hours prn Percocet 10/325mg po q 4 hours prn Dilaudid 1 mg IV q 3 hours for breakthrough pain Consider topical low back therapies to augment pain mgt as well, e.g. Lidoderm patch RT consult - CPAP at night - patient did not bring his from home IVFs - NS to run at 100cc/hour and reassess for continued IVF need in the AM Telemetry May use port Home meds reviewed and restarted as indicated Lovenox and SCDs for DVT prophylaxis 12/18/[address] Hernandez, fentanyl patch initiated, Percocet scheduled to try to improve pain control. PT/OT consults. Chemotherapy continued with Velcade today; next dose due 12/21. Continue tumor lysis regimen and prophylactic Bactrim and acyclovir. Continue low-volume IV fluids. Reassess renal function and CBC in a.m. Bowel regimen initiated. Lovenox for DVT prophylaxis. Home regimen for blood pressure/hypothyroidism continued. Outpatient records/transfer records reviewed. High-risk medications-IV narcotics /chemotherapy in use. 12/19/16 Change to inpatient status given continued IV fluid for hydration as well as IV pain medications required to treat pain. Oncology as per Dr Hernandez. He will receive next chemotherapy dose on 12/21 of Velcade. He continues on prophylactic Bactrim and acyclovir Increased PRN Dilaudid to 1-2mg IV in addition to Percocet PRN. Continue with lactulose scheduled twice a day, MiraLAX, senna plus for ongoing bowel motivation Blood pressure continues to be well controlled. Will continue with lisinopril and hydralazine, lisinopril, Spirolactone Continue volume IV fluids for ongoing hydration Continue to follow the routine laboratory studies. Sodium is slightly decreased today to 133. Hemoglobin stable at 9.5. We'll discuss further orders and plan of care with attending, Dr. Dhillon 12/20/16 *Multiple myeloma with intractable pain of malignancy- Chemo/XRT per Dr. Burden. Will likely need to go to [place] for XRT due to size. There is concern that he will need NH placement during radiation therapy as he continues to have difficulty with standing. Allopurinol for prevention of tumor lysis syndrome. *Acute pain of malignancy- Continue Fentanyl- increased today. Continue Scheduled Percocet and low dose PRN percocet. Will add lidoderm to left shoulder and lower back. Could consider adding Gabapentin +/_ Ford-2 or NSAID due to bony pain. Will need close monitoring or renal function. Daughter was reluctant to try Gabapentin due to "brain fogginess" from chemo. *HTN- Lisinopril/Metoprolol/Aldactone. Potassium is normal. *LÓPEZ- CPAP *Constipation- Add Lactulose. Continue Dulcosate. Encourage activity. Monitor hydration status. *DVT px- Lovenox/SCDs. *DC planning- Will need help with likely placement in [place] for ongoing care and radiation. 12/21/16 Doing fair overall. Pain varies, meds help take the edge off but not completely resolve discomfort. Bowels did start to move last night. Notes slight nausea occasionally. Breathing stable-SOA with activities but little cough/congestion. Urinating well. No f/c. Lab stable. BP with some decrease at times-possible pain medications, but overall tolerating narcotics well. Continue with pain control - pt more comfortable overall. As bowel moving, will change lactulose to as needed. Continue with bowel motivation. CM working on outpatient arrangements for Radiation in [place]. Trying to find facility for him to stay that is closer to [place] than home as transportation logistics difficult for patient. 12/22/16 Discontinue IV fluids as he is taking in adequate PO. Lower ext edema present likely from siting on edge of bed today Will give a one time dose of Lasix 20mg for diuresis Continued to work with CM for ongoing discharge plan and placement <IselaDoWheeler D - Last Filed: 12/22/16 17:26> Objective Vital signs: Temperature 95.5 F L 12/22/16 07:00 Pulse Rate 85 12/22/16 08:00 Respiratory Rate 24 12/22/16 14:13 Blood Pressure 144/61 H 12/22/16 07:00 Pulse Oximetry 98 12/22/16 14:13 Oxygen Delivery Method Nasal Cannula Oxygen Flow Rate 2 Results - Labs CBC & Chem 7: 12/22/16 12:35 12/22/16 12:35 Assessment and Plan (1) Intractable pain Current visit: Yes Status: Acute (2) Multiple myeloma Current visit: Yes Status: Acute (3) Metastatic cancer to bone Current visit: Yes Status: Acute (4) Hypocalcemia Problem details: Recently treated for Hypercalcemia Current visit: Yes Status: Acute (5) Constipation Current visit: Yes Status: Acute (6) LÓPEZ (obstructive sleep apnea) Current visit: Yes Status: Chronic (7) Cardiac arrhythmia Current visit: Yes Status: Chronic (8) HTN (hypertension) Current visit: Yes Status: Chronic (9) Dehydration Current visit: Yes Status: Resolved (10) Generalized weakness Current visit: Yes Status: Acute (11) Prostate cancer Current visit: Yes Status: Chronic (12) Morbid (severe) obesity due to excess calories Current visit: Yes Status: Chronic DVT Prophylaxis: SCD's Assessment and Plan: Have independently interviewed and examined pt. Chart reviewed. Case discussed with CM and my [employer]. Care plan developed with my supervision; agree with above. Doing about the same-still with pain, varies. Pain worse with movements and positional changes. Still hard to get up from chair or bed due to pain. Medication are helping. Notes mild nausea. Stools slow. Breathing well-not having increased SOA or congestion. Lungs: decreased CV: regular AB: soft nt/nd BS decreased MSE: awake alert appropriate Plan: Continue with pain control-will add Neurontin at night to try to help with pain relief. Encourage therapy and activities. IVF stopped as taking oral well-Lasix x1 as weight with increase due to fluids. CM working on discharge disposition. Hoping to be able to get pt in for definitive radiation treatment soon. Hospital Course Summary Disclaimer: The visit summary below is not to be considered part of the above Progress Note.
[2016-12-22] MEDS: ENOXAPARIN 60 MG/0.6 ML INJECTION SQ SCH (17:58)
[2016-12-22] MEDS: ALBUTEROL 2.5mg/3ml (0.083%) NEB AEROSOL SCH (19:55)
[2016-12-22] MEDS: LOVASTATIN 20 MG TABLET PO SCH (21:43)
[2016-12-22] MEDS: LIDOCAINE PATCH REMOVAL TOP SCH (21:45)
[2016-12-22] MEDS: NITROGLYCERIN PATCH REMOVAL TD SCH (21:45)
[2016-12-22] MEDS ORDERED: GABAPENTIN 300 MG CAPSULE PO SCH (22:00)
[2016-12-23] MEDS: HYDROMORPHONE 2 MG/ML INJECTION IVP PRN ×4 (00:09→18:54)
[2016-12-23] MEDS: Oxycodone/Apap 10/325 1 TAB PO SCH ×6 (00:10→20:07)
[2016-12-23] MEDS: LEVOTHYROXINE 100 MCG TABLET PO SCH (05:30)
[2016-12-23] MEDS: NITROGLYCERIN 0.2 MG/HR PATCH TD SCH (09:29)
[2016-12-23] MEDS: HYDRALAZINE 25 MG TABLET PO SCH ×3 (09:44→17:46)
[2016-12-23] MEDS: DOCUSATE SODIUM 100 MG CAPSULE PO SCH ×2 (09:45→21:59)
[2016-12-23] MEDS: POLYETHYL GLYCOL 3350 17gm PACKET PO SCH ×2 (09:45→22:08)
[2016-12-23] MEDS: SPIRONOLACTONE 25 MG TABLET PO SCH (09:45)
[2016-12-23] MEDS: LISINOPRIL 20 MG TABLET PO SCH (09:45)
[2016-12-23] MEDS: LIDOCAINE 5% PATCH TOP SCH (09:45)
[2016-12-23] MEDS: ACYCLOVIR 200 MG CAPSULE PO SCH ×3 (09:46→21:58)
[2016-12-23] MEDS: SENNA + DOCUSATE TABLET PO SCH ×2 (09:46→21:59)
[2016-12-23] MEDS: LACTULOSE 20 GM/30 ML ORAL LIQUID PO PRN ×2 (09:46→22:02)
[2016-12-23] MEDS: ALLOPURINOL 300 MG TABLET PO SCH (09:46)
[2016-12-23] MEDS: ALBUTEROL 2.5mg/3ml (0.083%) NEB AEROSOL SCH ×2 (09:59→19:37)
[2016-12-23] MEDS: TBO-FILGRASTIM 480mcg/0.8ml INJECTION SQ SCH (12:48)
[2016-12-23] MEDS ORDERED: TBO-FILGRASTIM 480mcg/0.8ml INJECTION SQ SCH (14:00)
[2016-12-23] MEDS: ALBUTEROL 2.5mg/3ml (0.083%) NEB AEROSOL PRN (15:35)
--- NOTE | 2016-12-23 17:15 | Progress Note ---
<Britney Nair V - Last Filed: 12/23/16 17:09> Subjective: Venancio is seen today in follow-up. Follow-up in his chair with his at his side. He is in good spirits. States that he is working better with therapy. Denies any new needs. He continues on 2 liters of oxygen by nasal cannula. Objective Vital signs: Temperature 98.5 F 12/23/16 15:00 Pulse Rate 71 12/23/16 15:00 Respiratory Rate 18 12/23/16 15:36 Blood Pressure 98/41 12/23/16 15:00 Pulse Oximetry 94 12/23/16 15:36 Oxygen Delivery Method Nasal Cannula Oxygen Flow Rate 2 Weight: 224.4 kg - Constitutional Present: no acute distress, well nourished, well developed - Routine HEENT Exam Eye: Present: EOMI, PERRL ENT: Present: mucous membranes moist, dentition normal - Routine Respiratory Exam Present: CTA bilaterally. Absent: wheezes - Routine Cardiovascular Exam Present: RRR, S1, S2. Absent: murmur - Routine Abdominal Exam Present: soft, normoactive bowel sounds, non distended. Absent: tenderness - Routine Extremities Exam Present: normal capillary refill - Routine Back/Spine/Pelvis Exam Back/Spine: Present: full ROM - Routine Skin Exam Present: dry, warm - Routine Neurological Exam Present: alert, oriented X3, CN II-XII intact - Routine Lymphatic Exam Lymphatic: Absent: adenopathy - Routine Psychiatric Exam Present: normal affect Results - Labs CBC & Chem 7: 12/23/16 10:31 12/23/16 10:31 Assessment and Plan (1) Intractable pain Current visit: Yes Status: Acute (2) Metastatic cancer to bone Current visit: Yes Status: Acute (3) Hypocalcemia Problem details: Recently treated for Hypercalcemia Current visit: Yes Status: Acute (4) Constipation Current visit: Yes Status: Acute (5) LÓPEZ (obstructive sleep apnea) Current visit: Yes Status: Chronic (6) Morbid (severe) obesity due to excess calories Current visit: Yes Status: Chronic (7) Cardiac arrhythmia Current visit: Yes Status: Chronic (8) HTN (hypertension) Current visit: Yes Status: Chronic (9) Dehydration Current visit: Yes Status: Resolved (10) Generalized weakness Current visit: Yes Status: Acute (11) Prostate cancer Current visit: Yes Status: Chronic (12) Multiple myeloma Current visit: Yes Status: Acute Assessment and Plan: 12/23/16 Continue with pain control on current regimen of Neurontin, Lidoderm patch, Percocet, as needed Dilaudid. He continues to work with PT and OT for ongoing strengthening and improve function. He does feel that he is making some gains today. Monitor blood pressure. He did have 1 low pressure this afternoon 98/41. Post discussions throughout the day with case management, working on discharge plan and ongoing radiation needs. Sepsis Assessment - Evaluation Sepsis screening result: No Definite Risk Hospital Course Summary Disclaimer: The visit summary below is not to be considered part of the above Progress Note. Hospital Course: 12/17/16 1) Acute intractable pain d/t lytic lesions in spine, pelvis and also chest wall on left side with minimal relief from home regimen 2) Multiple Myeloma w/ recent dx and s/p chemotherapy 3) Acute Dehydration POA 4) COPD/Asthma - mildly symptomatic upon presentation and improved w/ neb albuterol treatment 5) LÓPEZ on CPAP at night 6) Cardiac arrhythmia - likely that of Afib and likely chronic and not paroxysmal however patient is unsure 7) HTN - recent episodes of low BP in [facility] so patient has been taken off some of this meds 8) Hypothyroidism 9) Recent dx of Prostate Cancer Plan: Admit to Hospitalist service direct admission and consult Oncology Labs upon admission - CMP, CBC and in the AM that of BMP and CBC Albuterol q 4 hours prn Percocet 10/325mg po q 4 hours prn Dilaudid 1 mg IV q 3 hours for breakthrough pain Consider topical low back therapies to augment pain mgt as well, e.g. Lidoderm patch RT consult - CPAP at night - patient did not bring his from home IVFs - NS to run at 100cc/hour and reassess for continued IVF need in the AM Telemetry May use port Home meds reviewed and restarted as indicated Lovenox and SCDs for DVT prophylaxis 12/18/[address] Hernandez, fentanyl patch initiated, Percocet scheduled to try to improve pain control. PT/OT consults. Chemotherapy continued with Velcade today; next dose due 12/21. Continue tumor lysis regimen and prophylactic Bactrim and acyclovir. Continue low-volume IV fluids. Reassess renal function and CBC in a.m. Bowel regimen initiated. Lovenox for DVT prophylaxis. Home regimen for blood pressure/hypothyroidism continued. Outpatient records/transfer records reviewed. High-risk medications-IV narcotics /chemotherapy in use. 12/19/16 Change to inpatient status given continued IV fluid for hydration as well as IV pain medications required to treat pain. Oncology as per Dr Hernandez. He will receive next chemotherapy dose on 12/21 of Velcade. He continues on prophylactic Bactrim and acyclovir Increased PRN Dilaudid to 1-2mg IV in addition to Percocet PRN. Continue with lactulose scheduled twice a day, MiraLAX, senna plus for ongoing bowel motivation Blood pressure continues to be well controlled. Will continue with lisinopril and hydralazine, lisinopril, Spirolactone Continue volume IV fluids for ongoing hydration Continue to follow the routine laboratory studies. Sodium is slightly decreased today to 133. Hemoglobin stable at 9.5. We'll discuss further orders and plan of care with attending, Dr. Dhillon 12/20/16 *Multiple myeloma with intractable pain of malignancy- Chemo/XRT per Dr. Burden. Will likely need to go to [place] for XRT due to size. There is concern that he will need NH placement during radiation therapy as he continues to have difficulty with standing. Allopurinol for prevention of tumor lysis syndrome. *Acute pain of malignancy- Continue Fentanyl- increased today. Continue Scheduled Percocet and low dose PRN percocet. Will add lidoderm to left shoulder and lower back. Could consider adding Gabapentin +/_ Ford-2 or NSAID due to bony pain. Will need close monitoring or renal function. Daughter was reluctant to try Gabapentin due to "brain fogginess" from chemo. *HTN- Lisinopril/Metoprolol/Aldactone. Potassium is normal. *LÓPEZ- CPAP *Constipation- Add Lactulose. Continue Dulcosate. Encourage activity. Monitor hydration status. *DVT px- Lovenox/SCDs. *DC planning- Will need help with likely placement in [place] for ongoing care and radiation. 12/21/16 Doing fair overall. Pain varies, meds help take the edge off but not completely resolve discomfort. Bowels did start to move last night. Notes slight nausea occasionally. Breathing stable-SOA with activities but little cough/congestion. Urinating well. No f/c. Lab stable. BP with some decrease at times-possible pain medications, but overall tolerating narcotics well. Continue with pain control - pt more comfortable overall. As bowel moving, will change lactulose to as needed. Continue with bowel motivation. CM working on outpatient arrangements for Radiation in [place]. Trying to find facility for him to stay that is closer to [place] than home as transportation logistics difficult for patient. 12/22/16 Discontinue IV fluids as he is taking in adequate PO. Lower ext edema present likely from siting on edge of bed today Will give a one time dose of Lasix 20mg for diuresis Continued to work with CM for ongoing discharge plan and placement 12/23/16 Continue with pain control on current regimen of Neurontin, Lidoderm patch, Percocet, as needed Dilaudid. He continues to work with PT and OT for ongoing strengthening and improve function. He does feel that he is making some gains today. Monitor blood pressure. He did have 1 low pressure this afternoon 98/41. Post discussions throughout the day with case management, working on discharge plan and ongoing radiation needs. <Liam Weiss - Last Filed: 12/23/16 21:16> Objective Vital signs: Temperature 98.5 F 12/23/16 15:00 Pulse Rate 70 12/23/16 16:00 Respiratory Rate 16 12/23/16 19:37 Blood Pressure 112/58 12/23/16 17:44 Pulse Oximetry 94 12/23/16 15:36 Oxygen Delivery Method Nasal Cannula Oxygen Flow Rate 2 Results - Labs CBC & Chem 7: 12/23/16 10:31 12/23/16 10:31 Assessment and Plan (1) Intractable pain Current visit: Yes Status: Acute (2) Multiple myeloma Current visit: Yes Status: Acute (3) Metastatic cancer to bone Current visit: Yes Status: Acute (4) Hypocalcemia Problem details: Recently treated for Hypercalcemia Current visit: Yes Status: Acute (5) Constipation Current visit: Yes Status: Acute (6) LÓPEZ (obstructive sleep apnea) Current visit: Yes Status: Chronic (7) Cardiac arrhythmia Current visit: Yes Status: Chronic (8) HTN (hypertension) Current visit: Yes Status: Chronic (9) Dehydration Current visit: Yes Status: Resolved (10) Generalized weakness Current visit: Yes Status: Acute (11) Prostate cancer Current visit: Yes Status: Chronic (12) Morbid (severe) obesity due to excess calories Current visit: Yes Status: Chronic Assessment and Plan: Have independently interviewed and examined pt. Chart reviewed. Case discussed with CM and my [facility]. Care plan developed with my supervision; agree with above. Doing about the same. Still has significant pain. Meds help 'take the edge off' Stools slow. No nausea. Tolerating therapy, but painful and difficult. Making some gains. Breathing stable. Lungs: decreased CV: regular AB: soft nt/nd MSE: awake alert appropriate Plan: Will increase Neurontin to try to help pain. Encourage therapy and activities. Continue with supportive care. CM working on discharge disposition. Hospital Course Summary Disclaimer: The visit summary below is not to be considered part of the above Progress Note.
[2016-12-23] MEDS: ENOXAPARIN 60 MG/0.6 ML INJECTION SQ SCH (17:46)
[2016-12-23] MEDS: SALINE FLUSH 10ml SYRINGE IV PRN (18:55)
[2016-12-23] MEDS ORDERED: FALL RISK - PHARMACY CONSULT MC PRN (19:31)
--- NOTE | 2016-12-23 19:59 | Progress Note ---
Oncology Subjective He remains stable with now new symptoms. waiting for placement. Exam Vital signs: Temperature 98.5 F 12/23/16 15:00 Pulse Rate 70 12/23/16 16:00 Respiratory Rate 16 12/23/16 19:37 Blood Pressure 112/58 12/23/16 17:44 Pulse Oximetry 94 12/23/16 15:36 Oxygen Delivery Method Nasal Cannula Oxygen Flow Rate 2 - Constitutional no acute distress, morbidly obese - Routine Respiratory Exam Absent: rales, respiratory distress - Routine Cardiovascular Exam Present: RRR - Routine Abdominal Exam Present: normoactive bowel sounds Oncology Results - Labs CBC & Chem 7: 12/23/16 10:31 12/23/16 10:31 Labs: Short CBC 12/23/16 Range/Units 10:31 WBC 8.9 (4.5-11.0) T/MM3 Hgb 9.5 L (13.5-17.5) GM/DL Hct 29.8 L (41-53) % Plt Count 109 L (130-400) T/MM3 [facility] 12/23/16 10:31 Sodium 138 Potassium 4.9 Chloride 108 H Carbon Dioxide 22 BUN 41.0 H Creatinine 1.4 D Glucose 148 H Calcium 7.6 L Assessment and Plan Assessment and Plan: Assessment: 1. 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 1. Morbid oppositely making it difficult for treatment planning especially radiation therapy for the plasmacytoma compression fractures. He does not fit into most of the radiation therapy machines. At this time, placement in [place] has not been established; having difficulty finding living facility. Dr. Hernandez visited with patient and human services case manager. Will check if patient is candidate to receive inpatient radiation therapy in [place]. Plan: Awaiting placement. hopefully will be accepted in [facility] or [place] where he could continue his chemotherapy along with radiation. - Time Spent With Patient Total time spent is greater than 50% in coordination of care (as documented) at patient's floor/unit and/or counseling patient: less than 15 minutes Sepsis Assessment - Evaluation Sepsis screening result: No Definite Risk
[2016-12-23] MEDS: LOVASTATIN 20 MG TABLET PO SCH (21:58)
[2016-12-23] MEDS: SULFAMETHOXAZOLE/TMP 800 MG/160 MG DS TABLET PO SCH (21:58)
[2016-12-23] MEDS: NITROGLYCERIN PATCH REMOVAL TD SCH (22:01)
[2016-12-23] MEDS: LIDOCAINE PATCH REMOVAL TOP SCH (22:01)
[2016-12-23] MEDS: GABAPENTIN 600 MG TABLET PO SCH (22:11)
[2016-12-24] MEDS: Oxycodone/Apap 10/325 1 TAB PO SCH ×6 (00:09→22:36)
[2016-12-24] MEDS: LEVOTHYROXINE 100 MCG TABLET PO SCH (07:52)
[2016-12-24] MEDS: POLYETHYL GLYCOL 3350 17gm PACKET PO SCH ×2 (09:39→22:37)
[2016-12-24] MEDS: LACTULOSE 20 GM/30 ML ORAL LIQUID PO PRN (09:39)
[2016-12-24] MEDS: ALLOPURINOL 300 MG TABLET PO SCH (09:40)
[2016-12-24] MEDS: ACYCLOVIR 200 MG CAPSULE PO SCH ×3 (09:40→20:13)
[2016-12-24] MEDS: NITROGLYCERIN 0.2 MG/HR PATCH TD SCH (09:40)
[2016-12-24] MEDS: HYDRALAZINE 25 MG TABLET PO SCH ×3 (09:41→18:13)
[2016-12-24] MEDS: SPIRONOLACTONE 25 MG TABLET PO SCH (09:41)
[2016-12-24] MEDS: DOCUSATE SODIUM 100 MG CAPSULE PO SCH ×2 (09:41→20:09)
[2016-12-24] MEDS: SENNA + DOCUSATE TABLET PO SCH ×2 (09:41→20:09)
[2016-12-24] MEDS: LIDOCAINE 5% PATCH TOP SCH (09:42)
[2016-12-24] MEDS: LISINOPRIL 20 MG TABLET PO SCH (09:43)
[2016-12-24] MEDS: ALBUTEROL 2.5mg/3ml (0.083%) NEB AEROSOL SCH ×2 (09:48→20:52)
[2016-12-24] MEDS: HYDROMORPHONE 2 MG/ML INJECTION IVP PRN ×3 (11:16→22:37)
[2016-12-24] MEDS: SALINE FLUSH 10ml SYRINGE IV PRN ×2 (11:17→14:50)
[2016-12-24] MEDS: TBO-FILGRASTIM 480mcg/0.8ml INJECTION SQ SCH (13:33)
[2016-12-24] MEDS ORDERED: BISACODYL 10 MG SUPPOSITORY RECTALLY PRN (13:52)
[2016-12-24] MEDS ORDERED: FLEET PHOSPHO - SODA ENEMA 133ml PR PRN (13:53)
--- NOTE | 2016-12-24 13:59 | Progress Note ---
Subjective: F/U: Intractable pain, MM About the same-pain constant. Meds help decrease discomfort, but not completely resolving. Notes more low back pain. Stools not moving despite current medication. No ab pain, but notes slight nausea at times. Urinating well. Breathing stable. No chest pain. Working with therapy-slow and painful; making slow progress. Objective Vital signs: Temperature 95.9 F L 12/24/16 07:00 Pulse Rate 66 12/24/16 11:26 Respiratory Rate 18 12/24/16 11:26 Blood Pressure 125/60 12/24/16 11:26 Pulse Oximetry 93 12/24/16 11:26 Oxygen Delivery Method Nasal Cannula Oxygen Flow Rate 2 Weight: 224.4 kg - Constitutional Present: well nourished, well developed, morbidly obese, cooperative - Routine HEENT Exam Head: Present: normocephalic, atraumatic Eye: Present: EOMI, PERRL ENT: Present: mucous membranes moist (No thrush ) - Routine Respiratory Exam Present: distant breath sounds, diminished air movement. Absent: respiratory distress, rhonchi, wheezes, crackles - Routine Cardiovascular Exam Present: RRR - Routine Abdominal Exam Present: soft, non distended, non tender - Routine Extremities Exam Present: edema (+1 bilateral LE ) - Routine Musculoskeletal Exam Musculoskeletal: Present: no clubbing or cyanosis, limited range of motion ( Shoulders bilaterally) - Routine Skin Exam Present: intact, warm, normal turgor - Routine Neurological Exam Present: alert, oriented X3, CN II-XII intact, vision grossly intact, hearing grossly intact. Absent: motor deficit - Routine Psychiatric Exam Present: normal affect, normal thought process, cooperative Results - Labs CBC & Chem 7: 12/23/16 10:31 12/23/16 10:31 Assessment and Plan (1) Intractable pain Current visit: Yes Status: Acute (2) Multiple myeloma Current visit: Yes Status: Acute (3) Metastatic cancer to bone Current visit: Yes Status: Acute (4) Constipation Current visit: Yes Status: Acute (5) Hypocalcemia Problem details: Recently treated for Hypercalcemia Current visit: Yes Status: Acute (6) LÓPEZ (obstructive sleep apnea) Current visit: Yes Status: Chronic (7) Cardiac arrhythmia Current visit: Yes Status: Chronic (8) HTN (hypertension) Current visit: Yes Status: Chronic (9) Dehydration Current visit: Yes Status: Resolved (10) Generalized weakness Current visit: Yes Status: Acute (11) Prostate cancer Current visit: Yes Status: Chronic (12) Morbid (severe) obesity due to excess calories Current visit: Yes Status: Chronic DVT Prophylaxis: SCD's, Lovenox Resuscitation Status: Do Not Resuscitate Assessment and Plan: Continue pain control - Neurontin increased to 600mg yesterday evening. Dulcolax suppository to help stool-if not having results will have nursing try fleets. Continue with therapy to improve abilities and functional status. CM working on discharge disposition - so far, have not been able to find placement. With pt's current physical limitation, discharge to home not feasible at this time. May be a possibility if pt able to make more progress with therapy. Will recheck BMP in am due to medication use. Check CBC as well. Case discussed with CM. - Time spent with patient 25 - 35 minutes Sepsis Assessment - Evaluation Sepsis screening result: No Definite Risk Hospital Course Summary Disclaimer: The visit summary below is not to be considered part of the above Progress Note. Hospital Course: 12/17/16 1) Acute intractable pain d/t lytic lesions in spine, pelvis and also chest wall on left side with minimal relief from home regimen 2) Multiple Myeloma w/ recent dx and s/p chemotherapy 3) Acute Dehydration POA 4) COPD/Asthma - mildly symptomatic upon presentation and improved w/ neb albuterol treatment 5) LÓPEZ on CPAP at night 6) Cardiac arrhythmia - likely that of Afib and likely chronic and not paroxysmal however patient is unsure 7) HTN - recent episodes of low BP in [facility] so patient has been taken off some of this meds 8) Hypothyroidism 9) Recent dx of Prostate Cancer Plan: Admit to Hospitalist service direct admission and consult Oncology Labs upon admission - CMP, CBC and in the AM that of BMP and CBC Albuterol q 4 hours prn Percocet 10/325mg po q 4 hours prn Dilaudid 1 mg IV q 3 hours for breakthrough pain Consider topical low back therapies to augment pain mgt as well, e.g. Lidoderm patch RT consult - CPAP at night - patient did not bring his from home IVFs - NS to run at 100cc/hour and reassess for continued IVF need in the AM Telemetry May use port Home meds reviewed and restarted as indicated Lovenox and SCDs for DVT prophylaxis 12/18/[address] Hernandez, fentanyl patch initiated, Percocet scheduled to try to improve pain control. PT/OT consults. Chemotherapy continued with Velcade today; next dose due 12/21. Continue tumor lysis regimen and prophylactic Bactrim and acyclovir. Continue low-volume IV fluids. Reassess renal function and CBC in a.m. Bowel regimen initiated. Lovenox for DVT prophylaxis. Home regimen for blood pressure/hypothyroidism continued. Outpatient records/transfer records reviewed. High-risk medications-IV narcotics /chemotherapy in use. 12/19/16 Change to inpatient status given continued IV fluid for hydration as well as IV pain medications required to treat pain. Oncology as per Dr Hernandez. He will receive next chemotherapy dose on 12/21 of Velcade. He continues on prophylactic Bactrim and acyclovir Increased PRN Dilaudid to 1-2mg IV in addition to Percocet PRN. Continue with lactulose scheduled twice a day, MiraLAX, senna plus for ongoing bowel motivation Blood pressure continues to be well controlled. Will continue with lisinopril and hydralazine, lisinopril, Spirolactone Continue volume IV fluids for ongoing hydration Continue to follow the routine laboratory studies. Sodium is slightly decreased today to 133. Hemoglobin stable at 9.5. We'll discuss further orders and plan of care with attending, Dr. Dhillon 12/20/16 *Multiple myeloma with intractable pain of malignancy- Chemo/XRT per Dr. Burden. Will likely need to go to [place] for XRT due to size. There is concern that he will need NH placement during radiation therapy as he continues to have difficulty with standing. Allopurinol for prevention of tumor lysis syndrome. *Acute pain of malignancy- Continue Fentanyl- increased today. Continue Scheduled Percocet and low dose PRN percocet. Will add lidoderm to left shoulder and lower back. Could consider adding Gabapentin +/_ Ford-2 or NSAID due to bony pain. Will need close monitoring or renal function. Daughter was reluctant to try Gabapentin due to "brain fogginess" from chemo. *HTN- Lisinopril/Metoprolol/Aldactone. Potassium is normal. *LÓPEZ- CPAP *Constipation- Add Lactulose. Continue Dulcosate. Encourage activity. Monitor hydration status. *DVT px- Lovenox/SCDs. *DC planning- Will need help with likely placement in [place] for ongoing care and radiation. 12/21/16 Doing fair overall. Pain varies, meds help take the edge off but not completely resolve discomfort. Bowels did start to move last night. Notes slight nausea occasionally. Breathing stable-SOA with activities but little cough/congestion. Urinating well. No f/c. Lab stable. BP with some decrease at times-possible pain medications, but overall tolerating narcotics well. Continue with pain control - pt more comfortable overall. As bowel moving, will change lactulose to as needed. Continue with bowel motivation. CM working on outpatient arrangements for Radiation in [place]. Trying to find facility for him to stay that is closer to [place] than home as transportation logistics difficult for patient. 12/22/16 Discontinue IV fluids as he is taking in adequate PO. Lower ext edema present likely from siting on edge of bed today Will give a one time dose of Lasix 20mg for diuresis Continued to work with CM for ongoing discharge plan and placement 12/23/16 Continue with pain control on current regimen of Neurontin, Lidoderm patch, Percocet, as needed Dilaudid. He continues to work with PT and OT for ongoing strengthening and improve function. He does feel that he is making some gains today. Monitor blood pressure. He did have 1 low pressure this afternoon 98/41. Post discussions throughout the day with case management, working on discharge plan and ongoing radiation needs. 12/24/16 Continue pain control - Neurontin increased to 600mg yesterday evening. Dulcolax suppository to help stool-if not having results will have nursing try fleets. Continue with therapy to improve abilities and functional status. CM working on discharge disposition - so far, have not been able to find placement. With pt's current physical limitation, discharge to home not feasible at this time. May be a possibility if pt able to make more progress with therapy. Will recheck BMP in am due to medication use. Check CBC as well.
--- NOTE | 2016-12-24 14:03 | Progress Note ---
Oncology Subjective Sitting on bedside, alone in room. Denies fever, chills, night sweats. Feels weak, pain in left shoulder and back persist. Shortness of air with minimal exertion, denies cough. Is eating and drinking fair. Voiding normally. Reports constipation, last BM 4 days ago. General: No fever, no night sweats Eyes: No redness, no pain, no diplopia ENT: No mouth sores, no trouble swallowing Cardiac: No chest pain no palpitations Pulmonary: Positive shortness of air. Denies cough Abdomen: No pain, no nausea vomiting, positive constipation : No urgency, frequency, dysuria, or hematuria Musculoskeletal: Left shoulder pain, lower back pain Neurological: No headaches, no focal weakness Skin: No rash, no sores Psychiatric: No anxiety, no depression <Romina Santiago - 12/24/16 15:23> Exam Vital signs: Temperature 95.8 F L 12/24/16 15:48 Pulse Rate 81 12/24/16 16:00 Respiratory Rate 16 12/24/16 15:48 Blood Pressure 101/49 12/24/16 15:48 Pulse Oximetry 92 12/24/16 15:48 Oxygen Delivery Method Nasal Cannula Oxygen Flow Rate 2 <ErendiraBenjamín D - 12/24/16 17:21> Temperature 95.9 F L 12/24/16 07:00 Pulse Rate 66 12/24/16 11:26 Respiratory Rate 18 12/24/16 11:26 Blood Pressure 125/60 12/24/16 11:26 Pulse Oximetry 93 12/24/16 11:26 Oxygen Delivery Method Nasal Cannula Oxygen Flow Rate 2 <Romina Santiago L - 12/24/16 14:04> - Constitutional no acute distress, morbidly obese <Romina Santiago 12/24/16 15:23> - Routine HEENT Exam Head: Present: normocephalic <Romina Santiago 12/24/16 15:23> Eye: Present: EOMI, PERRL <Romina Santiago 12/24/16 15:23> ENT: Present: mucous membranes moist <Romina Santiago 12/24/16 15:23> - Routine Neck Exam Present: supple. Absent: lymphadenopathy <Romina Santiago 12/24/16 15:23> - Routine Respiratory Exam Present: decreased breath sounds. Absent: wheezes <Romina Santiago - 12/24/16 15:23> - Routine Cardiovascular Exam Present: RRR <Romina Santiago 12/24/16 15:23> - Routine Abdominal Exam Present: soft. Absent: tenderness <Romina Santiago 12/24/16 15:23> Comments: Morbidly obese. Pannus drapes over the lower abdomen [address] to the floor while sitting <Romina Santiago 12/24/16 15:23> - Routine Extremities Exam Present: edema (1+ pitting edema bilateral lower extremities. No upper extremity edema.), full ROM <Romina Santiago 12/24/16 15:23> - Routine Skin Exam Present: intact, pallor. Absent: petechiae <Romina Santiago 12/24/16 15:23> - Routine Neurological Exam Present: alert, oriented X3 <Romina Santiago 12/24/16 15:23> - Routine Psychiatric Exam Present: normal affect, normal thought process <Romina Santiago 12/24/16 15: 23> Oncology Results - Labs CBC & Chem 7: 12/23/16 10:31 12/23/16 10:31 <Benjamín Krishna - 12/24/16 17:21> Assessment and Plan Assessment and Plan: Patient examined. Chart reviewed. I participated in the development of the plan of care for this patient with Arlene ORTIZ. IgG multiple myeloma extensive disease in need of radiation therapy for pain relief. Currently on Cytoxan Velcade dexamethasone. He is having fluid retention secondary to the dexamethasone and discussed use of diuretics with Dr. Weiss. 2. Current plan is going home with daughter. They will be transporting to [place] for radiation therapy. We'll check lab in the morning. 3. Morbid obesity <Benjamín Krishna - 12/24/16 17:21> Assessment: 1. 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 1. Morbid oppositely making it difficult for treatment planning especially radiation therapy for the plasmacytoma compression fractures. He does not fit into most of the radiation therapy machines. At this time, placement has not been established; having difficulty finding living facility. Plan: Per case management and patient he is feeling stronger. Difficulty finding placement and intent is to return home; daughter will be staying with them and making home more accommodating. Continuing evaluation for where patient will receive radiation therapy. He would prefer [facility] if possible, as this is within 30 minutes of his home. Continue supportive care, monitoring of counts and renal function. Will check CBC, CMP, LDH in a.m. <Romina Santiago - 12/24/16 15:23> - Time Spent With Patient Total time spent is greater than 50% in coordination of care (as documented) at patient's floor/unit and/or counseling patient: <Benjamín Krishna - 12/24/16 17:21> Total time spent is greater than 50% in coordination of care (as documented) at patient's floor/unit and/or counseling patient: <Romina Santiago - 12/24/16 14:04> 25 - 35 minutes <Romina Santiago 12/24/16 15:23> Sepsis Assessment - Evaluation Sepsis screening result: No Definite Risk <Romina Santiago 12/24/16 14:04>
[2016-12-24] MEDS: ALBUTEROL 2.5mg/3ml (0.083%) NEB AEROSOL PRN (17:20)
[2016-12-24] MEDS: ENOXAPARIN 60 MG/0.6 ML INJECTION SQ SCH (18:15)
[2016-12-24] MEDS: GABAPENTIN 600 MG TABLET PO SCH (22:00)
[2016-12-24] MEDS: LOVASTATIN 20 MG TABLET PO SCH (22:00)
[2016-12-24] MEDS: LIDOCAINE PATCH REMOVAL TOP SCH (22:36)
[2016-12-24] MEDS: NITROGLYCERIN PATCH REMOVAL TD SCH (22:37)
[2016-12-25] MEDS: Oxycodone/Apap 10/325 1 TAB PO SCH ×5 (01:33→20:22)
[2016-12-25] MEDS: ALBUTEROL 2.5mg/3ml (0.083%) NEB AEROSOL PRN ×2 (04:57→16:53)
[2016-12-25] MEDS: LEVOTHYROXINE 100 MCG TABLET PO SCH (06:41)
[2016-12-25] MEDS: Oxycodone/Apap 10/325 1 TAB PO PRN ×3 (06:45→20:23)
[2016-12-25] MEDS: HYDROMORPHONE 2 MG/ML INJECTION IVP PRN ×3 (06:46→20:21)
[2016-12-25] MEDS: ALBUTEROL 2.5mg/3ml (0.083%) NEB AEROSOL SCH ×2 (08:09→19:50)
[2016-12-25] MEDS: LIDOCAINE 5% PATCH TOP SCH (09:03)
[2016-12-25] MEDS: POLYETHYL GLYCOL 3350 17gm PACKET PO SCH ×2 (09:05→21:20)
[2016-12-25] MEDS: NITROGLYCERIN 0.2 MG/HR PATCH TD SCH (09:05)
[2016-12-25] MEDS: ACYCLOVIR 200 MG CAPSULE PO SCH ×3 (09:05→21:20)
[2016-12-25] MEDS: SENNA + DOCUSATE TABLET PO SCH ×2 (09:06→21:20)
[2016-12-25] MEDS: SPIRONOLACTONE 25 MG TABLET PO SCH (09:06)
[2016-12-25] MEDS: HYDRALAZINE 25 MG TABLET PO SCH ×3 (09:07→17:05)
[2016-12-25] MEDS: LISINOPRIL 20 MG TABLET PO SCH (09:07)
[2016-12-25] MEDS: DOCUSATE SODIUM 100 MG CAPSULE PO SCH ×2 (09:08→21:20)
[2016-12-25] MEDS: ALLOPURINOL 100 MG TABLET PO SCH (09:59)
--- NOTE | 2016-12-25 10:59 | Progress Note ---
Oncology Subjective Sitting on bedside. States " Not a good day today." Generalized malaise, feels bloated, and persistant pain. C/O discomfort on bottom. Eating/drinking normally. Doesn't like water. brought patient bottle of Coke yesterday. No BM. Voiding normally. General: Malaise Eyes: No redness, no pain, no diplopia ENT: No mouth sores, no trouble swallowing Cardiac: No chest pain no palpitations Pulmonary: No cough, no shortness of breath, no wheezing Abdomen: No pain, no nausea vomiting, + constipation : No urgency, frequency, dysuria, or hematuria Musculoskeletal:Chronic back/shoulder pain Neurological: No headaches, no focal weakness Skin: buttocks sore Psychiatric: No anxiety, no depression <Romina Santiago - 12/25/16 13:08> Exam Vital signs: Temperature 98.0 F 12/25/16 08:56 Pulse Rate 80 12/25/16 08:56 Respiratory Rate 22 12/25/16 08:56 Blood Pressure 132/58 12/25/16 08:56 Pulse Oximetry 97 12/25/16 08:56 Oxygen Delivery Method Nasal Cannula Oxygen Flow Rate 2 <Benjamín Krishna D - 12/25/16 14:39> Temperature 98.0 F 12/25/16 08:56 Pulse Rate 80 12/25/16 08:56 Respiratory Rate 22 12/25/16 08:56 Blood Pressure 132/58 12/25/16 08:56 Pulse Oximetry 97 12/25/16 08:56 Oxygen Delivery Method Nasal Cannula Oxygen Flow Rate 2 <Romina Santiago 12/25/16 13:08> - Constitutional mild distress, morbidly obese <Romina Santiago 12/25/16 13:08> - Routine HEENT Exam Head: Present: normocephalic <Romina Santiago 12/25/16 13:08> Eye: Present: EOMI <Romina Santiago 12/25/16 13:08> ENT: Present: mucous membranes moist <Romina Santiago 12/25/16 13:08> - Routine Neck Exam Present: supple. Absent: lymphadenopathy, tenderness <Romina Santiago 13:08> - Routine Respiratory Exam Present: decreased breath sounds. Absent: wheezes, crackles <Romina Santiago - 12/25/16 13:08> - Routine Abdominal Exam Absent: tenderness <Romina Santiago - 12/25/16 13:08> Comments: large pannus <Romina Santiago - 12/25/16 13:08> - Routine Extremities Exam Present: edema <Romina Santiago - 12/25/16 13:08> - Routine Back/Spine/Pelvis Exam Back/Spine: Present: vertebral tenderness (lumbar spine) <Romina Santiago - 13:08> - Routine Skin Exam Comments: howard. mid buttocks erythematous, yellow scale to left buttocks. Has singular open wounds howard crease between posterior thigh/buttocks w/ red wound base. <Romina Santiago - 12/25/16 13:08> - Routine Neurological Exam Present: alert, oriented X3, moving all extremities <Romina Santiago - 13:08> - Routine Psychiatric Exam Present: normal affect <Romina Santiago - 12/25/16 13:08> Oncology Results - Labs CBC & Chem 7: 12/25/16 04:42 12/25/16 04:42 <Benjamín Krishna - 12/25/16 14:39> Labs: Short CBC 12/25/16 Range/Units 04:42 WBC 13.0 H D (4.5-11.0) T/MM3 Hgb 9.9 L (13.5-17.5) GM/DL Hct 31.8 L (41-53) % Plt Count 106 L (130-400) T/MM3 BMP 12/25/16 04:42 Sodium 137 Potassium 5.6 H Chloride 107 Carbon Dioxide 23 BUN 49.0 H Creatinine 2.0 H D Glucose 86 Calcium 8.3 L D Urine 12/25/16 Range/Units 12:18 Urine Color Yellow (YELLOW) Urine Clarity Clear Urine pH 5.0 (5.0-8.0) Ur Specific [place] 1.025 (1.015-1.025) Urine Protein Negative (NEGATIVE) Urine Glucose (UA) Negative (NEGATIVE) <Benjamín Krishna - 12/25/16 14:39> Short CBC 12/25/16 Range/Units 04:42 WBC 13.0 H D (4.5-11.0) T/MM3 Hgb 9.9 L (13.5-17.5) GM/DL Hct 31.8 L (41-53) % Plt Count 106 L (130-400) T/MM3 [facility] 12/25/16 04:42 Sodium 137 Potassium 5.6 H Chloride 107 Carbon Dioxide 23 BUN 49.0 H Creatinine 2.0 H D Glucose 86 Calcium 8.3 L D <Romina Santiago - 12/25/16 10:59> Assessment and Plan Assessment and Plan: Patient examined, chart reviewed, agree with documentation by Arlene Santiago. I participated in the development of the plan of care of this patient. He has had acute increase in his creatinine over the last 2 days going from 1.4-2.0. We will look at maintaining hydration following creatinine function stopping nephrotoxic medications stopping Bactrim. Will begin Solu-Medrol 40 mg every 12 hours. <Benjamín Krishna - 12/25/16 14:39> 12/25/16 1. IgG multiple myeloma extensive disease in need of radiation therapy for pain relief. Currently on Cytoxan Velcade dexamethasone. He is having fluid retention secondary to the dexamethasone and discussed use of diuretics with Dr. Weiss. 2. Chronic renal insufficiency w/ worsening kidney function today- 12/25/16 : BUN 49.0, creatinine 2.0, and GFR 34- baseline results on 12/17/16- BUN- 44.0, creatinine 1.2, and GFR 61. Discussed findings with Dr. Krishna and Dr. Merino. Will D/C Bactrim, decrease allopurinol to 200mg daily. Renal US ordered. 3. Morbid obesity 4. buttocks wounds Continue supportive care. Wound care consult placed. Continued close monitoring of counts and renal function. Discussed renal function/ lab results w/ patient and . No Aleve, ibuprofen, or ASA. Increase H2O intake, decrease soda intake - acknowledges/agrees to do. Will follow. Continue discharge plans- possibly home w/ family next week and XRT in [place]. <Romina Santiago - 12/25/16 13:08> - Time Spent With Patient Total time spent is greater than 50% in coordination of care (as documented) at patient's floor/unit and/or counseling patient: <Benjamín Krishna - 12/25/16 14:39> Total time spent is greater than 50% in coordination of care (as documented) at patient's floor/unit and/or counseling patient: <Romina Santiago - 12/25/16 10:59> 25 - 35 minutes <Romina Santiago 12/25/16 13:08> Sepsis Assessment - Evaluation Sepsis screening result: No Definite Risk <Romina Santiago 12/25/16 10:59>
[2016-12-25] MEDS: FUROSEMIDE 20 MG TABLET PO SCH (13:25)
[2016-12-25] MEDS: METHYLPREDNISOLONE SOD SUCC 40mg/ml INJECTION IVP SCH ×2 (15:42→21:19)
[2016-12-25] MEDS: ENOXAPARIN 60 MG/0.6 ML INJECTION SQ SCH (17:04)
--- NOTE | 2016-12-25 19:51 | Progress Note ---
Subjective: F/U: Intractable pain, MM Rough day. Not able to be as active as previous. More sore with movements. Appetite decreasing, slight nausea. No stool despite efforts. Feels more full in pannus (looks like dependent edema on exam). Urinating well; no pain or discomfort. Breathing stable. Objective Vital signs: Temperature 97.4 F 12/25/16 15:50 Pulse Rate 83 12/25/16 15:50 Respiratory Rate 24 12/25/16 16:53 Blood Pressure 111/65 12/25/16 15:50 Pulse Oximetry 93 12/25/16 16:53 Oxygen Delivery Method Nasal Cannula Oxygen Flow Rate 2 Weight: 227.5 kg - Constitutional Present: well nourished, well developed, morbidly obese, cooperative. Absent: agitated - Routine HEENT Exam Head: Present: normocephalic, atraumatic Eye: Present: EOMI, PERRL ENT: Present: mucous membranes moist - Routine Respiratory Exam Present: decreased breath sounds, distant breath sounds. Absent: respiratory distress, rhonchi, wheezes, crackles - Routine Cardiovascular Exam Present: RRR, no murmur - Routine Abdominal Exam Present: soft, non distended, non tender Comments: Large abdominal pannus - Routine Extremities Exam Present: edema (+2 B LE), pulses intact. Absent: cyanosis, clubbing - Routine Musculoskeletal Exam Musculoskeletal: Present: no clubbing or cyanosis, no joint swelling - Routine Skin Exam Present: warm. Absent: pallor, mottling - Routine Neurological Exam Present: alert, oriented X3, CN II-XII intact, vision grossly intact, hearing grossly intact. Absent: motor deficit - Routine Psychiatric Exam Present: normal affect, normal thought process, cooperative, good insight, good judgment. Absent: anxious, agitated Results - Labs CBC & Chem 7: 12/25/16 04:42 12/25/16 04:42 Assessment and Plan (1) Intractable pain Current visit: Yes Status: Acute (2) Multiple myeloma Current visit: Yes Status: Acute (3) Metastatic cancer to bone Current visit: Yes Status: Acute (4) Constipation Current visit: Yes Status: Acute (5) Hypocalcemia Problem details: Recently treated for Hypercalcemia Current visit: Yes Status: Acute (6) LÓPEZ (obstructive sleep apnea) Current visit: Yes Status: Chronic (7) Cardiac arrhythmia Current visit: Yes Status: Chronic (8) HTN (hypertension) Current visit: Yes Status: Chronic (9) Dehydration Current visit: Yes Status: Resolved (10) Generalized weakness Current visit: Yes Status: Acute (11) Prostate cancer Current visit: Yes Status: Chronic (12) Morbid (severe) obesity due to excess calories Current visit: Yes Status: Chronic (13) Elevated serum creatinine Current visit: Yes Status: Acute DVT Prophylaxis: Lovenox Resuscitation Status: Do Not Resuscitate Assessment and Plan: Will hold lisinopril and spironolactone due to elevating creatinine and potassium. Not able to do bladder scan due to body habitus - Nursing did strait cath without excessive urine in bladder indicative of retention. Dr Krishna starting steroids due to potential meyloma kidney. Lasix 20mg po daily to help motivate fluid. Continue pain control - Neurontin, Duragesic patch, and Percocet along with Dilaudid. Palliative pain control consult place. Change lactulose to 20 TIDWM to help stools. Continue with work on bowel motivation. Wound team to see for developing pressure sores on buttocks. Continue with therapy to improve abilities and functional status. CM working on discharge disposition - so far, have not been able to find placement. Will recheck BMP and Mg in am due to elevated creatinine. Check CBC as well. Case discussed with CM and Dr Krishna. Sepsis Assessment - Evaluation Sepsis screening result: No Definite Risk Hospital Course Summary Disclaimer: The visit summary below is not to be considered part of the above Progress Note. Hospital Course: 12/17/16 1) Acute intractable pain d/t lytic lesions in spine, pelvis and also chest wall on left side with minimal relief from home regimen 2) Multiple Myeloma w/ recent dx and s/p chemotherapy 3) Acute Dehydration POA 4) COPD/Asthma - mildly symptomatic upon presentation and improved w/ neb albuterol treatment 5) LÓPEZ on CPAP at night 6) Cardiac arrhythmia - likely that of Afib and likely chronic and not paroxysmal however patient is unsure 7) HTN - recent episodes of low BP in [facility] so patient has been taken off some of this meds 8) Hypothyroidism 9) Recent dx of Prostate Cancer Plan: Admit to Hospitalist service direct admission and consult Oncology Labs upon admission - CMP, CBC and in the AM that of BMP and CBC Albuterol q 4 hours prn Percocet 10/325mg po q 4 hours prn Dilaudid 1 mg IV q 3 hours for breakthrough pain Consider topical low back therapies to augment pain mgt as well, e.g. Lidoderm patch RT consult - CPAP at night - patient did not bring his from home IVFs - NS to run at 100cc/hour and reassess for continued IVF need in the AM Telemetry May use port Home meds reviewed and restarted as indicated Lovenox and SCDs for DVT prophylaxis 12/18/[address] Hernandez, fentanyl patch initiated, Percocet scheduled to try to improve pain control. PT/OT consults. Chemotherapy continued with Velcade today; next dose due 12/21. Continue tumor lysis regimen and prophylactic Bactrim and acyclovir. Continue low-volume IV fluids. Reassess renal function and CBC in a.m. Bowel regimen initiated. Lovenox for DVT prophylaxis. Home regimen for blood pressure/hypothyroidism continued. Outpatient records/transfer records reviewed. High-risk medications-IV narcotics /chemotherapy in use. 12/19/16 Change to inpatient status given continued IV fluid for hydration as well as IV pain medications required to treat pain. Oncology as per Dr Hernandez. He will receive next chemotherapy dose on 12/21 of Velcade. He continues on prophylactic Bactrim and acyclovir Increased PRN Dilaudid to 1-2mg IV in addition to Percocet PRN. Continue with lactulose scheduled twice a day, MiraLAX, senna plus for ongoing bowel motivation Blood pressure continues to be well controlled. Will continue with lisinopril and hydralazine, lisinopril, Spirolactone Continue volume IV fluids for ongoing hydration Continue to follow the routine laboratory studies. Sodium is slightly decreased today to 133. Hemoglobin stable at 9.5. We'll discuss further orders and plan of care with attending, Dr. Dhillon 12/20/16 *Multiple myeloma with intractable pain of malignancy- Chemo/XRT per Dr. Burden. Will likely need to go to [place] for XRT due to size. There is concern that he will need NH placement during radiation therapy as he continues to have difficulty with standing. Allopurinol for prevention of tumor lysis syndrome. *Acute pain of malignancy- Continue Fentanyl- increased today. Continue Scheduled Percocet and low dose PRN percocet. Will add lidoderm to left shoulder and lower back. Could consider adding Gabapentin +/_ Ford-2 or NSAID due to bony pain. Will need close monitoring or renal function. Daughter was reluctant to try Gabapentin due to "brain fogginess" from chemo. *HTN- Lisinopril/Metoprolol/Aldactone. Potassium is normal. *LÓPEZ- CPAP *Constipation- Add Lactulose. Continue Dulcosate. Encourage activity. Monitor hydration status. *DVT px- Lovenox/SCDs. *DC planning- Will need help with likely placement in [place] for ongoing care and radiation. 12/21/16 Doing fair overall. Pain varies, meds help take the edge off but not completely resolve discomfort. Bowels did start to move last night. Notes slight nausea occasionally. Breathing stable-SOA with activities but little cough/congestion. Urinating well. No f/c. Lab stable. BP with some decrease at times-possible pain medications, but overall tolerating narcotics well. Continue with pain control - pt more comfortable overall. As bowel moving, will change lactulose to as needed. Continue with bowel motivation. CM working on outpatient arrangements for Radiation in [place]. Trying to find facility for him to stay that is closer to [place] than home as transportation logistics difficult for patient. 12/22/16 Discontinue IV fluids as he is taking in adequate PO. Lower ext edema present likely from siting on edge of bed today Will give a one time dose of Lasix 20mg for diuresis Continued to work with CM for ongoing discharge plan and placement 12/23/16 Continue with pain control on current regimen of Neurontin, Lidoderm patch, Percocet, as needed Dilaudid. He continues to work with PT and OT for ongoing strengthening and improve function. He does feel that he is making some gains today. Monitor blood pressure. He did have 1 low pressure this afternoon 98/41. Post discussions throughout the day with case management, working on discharge plan and ongoing radiation needs. 12/24/16 Continue pain control - Neurontin increased to 600mg yesterday evening. Dulcolax suppository to help stool-if not having results will have nursing try fleets. Continue with therapy to improve abilities and functional status. CM working on discharge disposition - so far, have not been able to find placement. With pt's current physical limitation, discharge to home not feasible at this time. May be a possibility if pt able to make more progress with therapy. Will recheck BMP in am due to medication use. Check CBC as well. 12/25/16 Rough day. Not able to be as active as previous. More sore with movements. Appetite decreasing, slight nausea. No stool despite efforts. Feels more full in pannus (looks like dependent edema on exam). Urinating well; no pain or discomfort. Breathing stable. Creatinine with increase to 2.0. Potassium 5.6. Calcium 8.3. Will hold lisinopril and spironolactone due to elevating creatinine and potassium. Not able to do bladder scan due to body habitus - Nursing did strait cath without excessive urine in bladder indicative of retention. Dr Krishna starting steroids due to potential meyloma kidney. Lasix 20mg po daily to help motivate fluid. Continue pain control - Neurontin, Duragesic patch, and Percocet along with Dilaudid. Palliative pain control consult place. Change lactulose to 20 TIDWM to help stools. Continue with work on bowel motivation. Wound team to see for developing pressure sores on buttocks. Continue with therapy to improve abilities and functional status. CM working on discharge disposition - so far, have not been able to find placement. Will recheck BMP and Mg in am due to elevated creatinine. Check CBC as well.
[2016-12-25] MEDS: GABAPENTIN 600 MG TABLET PO SCH (21:20)
[2016-12-25] MEDS: LOVASTATIN 20 MG TABLET PO SCH (21:20)
[2016-12-25] MEDS: NITROGLYCERIN PATCH REMOVAL TD SCH (21:21)
[2016-12-25] MEDS: LIDOCAINE PATCH REMOVAL TOP SCH (21:21)
[2016-12-25] MEDS: LACTULOSE 20 GM/30 ML ORAL LIQUID PO SCH (21:22)
[2016-12-26] MEDS: ALBUTEROL 2.5mg/3ml (0.083%) NEB AEROSOL PRN ×2 (01:14→13:47)
[2016-12-26] MEDS: Oxycodone/Apap 10/325 1 TAB PO SCH ×8 (01:38→20:43)
[2016-12-26] MEDS: HYDROMORPHONE 2 MG/ML INJECTION IVP PRN ×2 (04:23→22:03)
[2016-12-26] MEDS: Oxycodone/Apap 10/325 1 TAB PO PRN (04:23)
[2016-12-26] MEDS: LEVOTHYROXINE 100 MCG TABLET PO SCH (06:56)
[2016-12-26] MEDS ORDERED: FUROSEMIDE 20 MG/2 ML INJECTION IVP ONE (08:58)
[2016-12-26] MEDS: ALBUTEROL 2.5mg/3ml (0.083%) NEB AEROSOL SCH ×2 (09:00→19:01)
[2016-12-26] MEDS ORDERED: CALCIUM GLUCONATE 1,000 MG in NS 50 ML IV ONE ×2 (09:07→18:52)
[2016-12-26] MEDS: LACTULOSE 20 GM/30 ML ORAL LIQUID PO SCH ×3 (09:15→17:09)
[2016-12-26] MEDS: POLYETHYL GLYCOL 3350 17gm PACKET PO SCH ×2 (09:15→21:51)
[2016-12-26] MEDS: DOCUSATE SODIUM 100 MG CAPSULE PO SCH ×2 (09:15→21:51)
[2016-12-26] MEDS: SENNA + DOCUSATE TABLET PO SCH (09:15)
[2016-12-26] MEDS: ALLOPURINOL 100 MG TABLET PO SCH (09:16)
[2016-12-26] MEDS: HYDRALAZINE 25 MG TABLET PO SCH ×3 (09:16→17:09)
[2016-12-26] MEDS: FUROSEMIDE 20 MG TABLET PO SCH (09:16)
[2016-12-26] MEDS: NITROGLYCERIN 0.2 MG/HR PATCH TD SCH (09:16)
[2016-12-26] MEDS: ACYCLOVIR 200 MG CAPSULE PO SCH ×3 (09:16→21:51)
[2016-12-26] MEDS: METHYLPREDNISOLONE SOD SUCC 40mg/ml INJECTION IVP SCH ×2 (09:19→21:51)
[2016-12-26] MEDS: LIDOCAINE 5% PATCH TOP SCH (09:20)
--- NOTE | 2016-12-26 09:22 | Progress Note ---
Subjective: Patient was seen this morning in his room after moving from the bedside commode to the bed. He complained of being short of breath and having rapid heart rate with movement that is not unusual for him. He states he had some shortness of breath last night that was relieved with breathing treatment. He states he thinks it's time for breathing treatment again. He denies any chest pain. He has left shoulder and arm pain which she states is thought to be from his multiple myeloma. He also has low back pain. He states the pain medications are not relieving his pain and its always there at about a 7. He states he is urinating okay and had a bowel movement today. This was his first bowel movement since Wednesday. He has been having significant problems with constipation. He did undergo straight catheter yesterday to rule out urinary retention and he only had 150 ML's in his bladder. He has some mild nausea but no vomiting. He denies any difficulties urinating. He states the swelling in his legs and in his lower abdomen is more than his baseline. Objective Vital signs: Temperature 98.7 F 12/26/16 00:00 Pulse Rate 71 12/26/16 00:00 Respiratory Rate 24 12/26/16 08:56 Blood Pressure 145/65 H 12/26/16 00:00 Pulse Oximetry 93 12/26/16 08:56 Oxygen Delivery Method Nasal Cannula Oxygen Flow Rate 2 Weight: 227.5 kg Comments: Weight yesterday was 227 kg up from 224 kg on admission. Urine output only recorded as 650 ML's yesterday. GEN-alert, oriented, mildly dyspneic after moving HEENT-sclera anicteric, oropharynx is moist NECK-supple, obese CV-borderline tachycardic rate with irregular rhythm CHEST-clear to auscultation bilaterally ABD-soft, obese, hypoactive bowel sounds, patient has a very large pannus and the lower dependent portion of the pannus does have 2+ edema -no Ugarte EXT-3+ pedal edema on the left, 2+ pedal edema on the right, 2+ pretibial edema bilaterally NEURO-no focal deficits SKIN-warm and dry and without rashes Results - Labs CBC & Chem 7: 12/26/16 04:14 12/26/16 04:14 Labs: White count is 16 up from 13 possibly secondary to steroids. Hemoglobin is stable. Platelets 106. Potassium 6.4 up from 5.6 yesterday. Creatinine is down from 2-1.6 today. BUN slightly up to 52 from 49 yesterday. - Impressions EKG shows sinus rhythm with frequent PVCs, low voltage QRS in the extremity leads, pattern consistent with pulmonary disease, no previous EKG for comparison. Telemetry shows peaked T waves in lead 1 that were not consistently present on previous days telemetry Assessment and Plan (1) Intractable pain Current visit: Yes Status: Acute (2) Metastatic cancer to bone Current visit: Yes Status: Acute (3) Hypocalcemia Problem details: Recently treated for Hypercalcemia Current visit: Yes Status: Acute (4) Constipation Current visit: Yes Status: Acute (5) LÓPEZ (obstructive sleep apnea) Current visit: Yes Status: Chronic (6) Morbid (severe) obesity due to excess calories Current visit: Yes Status: Chronic (7) Cardiac arrhythmia Current visit: Yes Status: Chronic (8) HTN (hypertension) Current visit: Yes Status: Chronic (9) Dehydration Current visit: Yes Status: Resolved (10) Generalized weakness Current visit: Yes Status: Acute (11) Prostate cancer Current visit: Yes Status: Chronic (12) Multiple myeloma Current visit: Yes Status: Acute (13) Elevated serum creatinine Current visit: Yes Status: Acute Assessment and Plan: 12/26/2016-Dr. Osullivan Impression Hyperkalemia-6.5 potassium Acute kidney injury-creatinine is 1.6 down from 2.0 yesterday. Because of rising creatinine is not known but could be related to Bactrim, multiple myeloma , prerenal, MARQUITA inhibitor, and/or diuretics. Multiple myeloma with bony metastasis Chronic pain secondary to myeloma Constipation in a patient on chronic opiates Severe Morbid obesity Obstructive sleep apnea-on chronic CPAP COPD Frequent PVCs Hypertension Hypoxia Generalized weakness Anemia of chronic disease Mild thrombocytopenia Plan Re: Hyperkalemia-remain off of lisinopril and spironolactone. EKG was obtained. Continue on telemetry. Will give IV calcium gluconate 1. Will give 1 L of IV fluid at 150 ML's per hour and give 40 of Lasix IV now. Repeat lab later this morning. Start low potassium diet. Continue to avoid nephrotoxins. Will not give Kayexalate since the patient is having problems with constipation and is on opiates. Regarding acute injury, continue off lisinopril and monitor urine output and creatinine. Renal sonogram ordered. Continue off of Bactrim. Continue fentanyl patch, lidocaine patch, when necessary Dilaudid, and when necessary Percocet for pain. Palliative care consult ordered yesterday. Multiple myeloma treatment per Dr. Krishna. Continue breathing treatments and oxygen for COPD and hypoxia. Monitor closely for worsening respiratory status with IV fluids. Regarding constipation, the patient is receiving senna and MiraLAX. Will add when necessary Dulcolax suppositories. Greater than 1 hour of time spent seeing and evaluating the patient today regarding hyperkalemia and other significant issues. Sepsis Assessment - Evaluation Sepsis screening result: No Definite Risk Hospital Course Summary Disclaimer: The visit summary below is not to be considered part of the above Progress Note. Hospital Course: 12/17/16 1) Acute intractable pain d/t lytic lesions in spine, pelvis and also chest wall on left side with minimal relief from home regimen 2) Multiple Myeloma w/ recent dx and s/p chemotherapy 3) Acute Dehydration POA 4) COPD/Asthma - mildly symptomatic upon presentation and improved w/ neb albuterol treatment 5) LÓPEZ on CPAP at night 6) Cardiac arrhythmia - likely that of Afib and likely chronic and not paroxysmal however patient is unsure 7) HTN - recent episodes of low BP in [facility] so patient has been taken off some of this meds 8) Hypothyroidism 9) Recent dx of Prostate Cancer Plan: Admit to Hospitalist service direct admission and consult Oncology Labs upon admission - CMP, CBC and in the AM that of BMP and CBC Albuterol q 4 hours prn Percocet 10/325mg po q 4 hours prn Dilaudid 1 mg IV q 3 hours for breakthrough pain Consider topical low back therapies to augment pain mgt as well, e.g. Lidoderm patch RT consult - CPAP at night - patient did not bring his from home IVFs - NS to run at 100cc/hour and reassess for continued IVF need in the AM Telemetry May use port Home meds reviewed and restarted as indicated Lovenox and SCDs for DVT prophylaxis 12/18/[address] Hernandez, fentanyl patch initiated, Percocet scheduled to try to improve pain control. PT/OT consults. Chemotherapy continued with Velcade today; next dose due 12/21. Continue tumor lysis regimen and prophylactic Bactrim and acyclovir. Continue low-volume IV fluids. Reassess renal function and CBC in a.m. Bowel regimen initiated. Lovenox for DVT prophylaxis. Home regimen for blood pressure/hypothyroidism continued. Outpatient records/transfer records reviewed. High-risk medications-IV narcotics /chemotherapy in use. 12/19/16 Change to inpatient status given continued IV fluid for hydration as well as IV pain medications required to treat pain. Oncology as per Dr Hernandez. He will receive next chemotherapy dose on 12/21 of Velcade. He continues on prophylactic Bactrim and acyclovir Increased PRN Dilaudid to 1-2mg IV in addition to Percocet PRN. Continue with lactulose scheduled twice a day, MiraLAX, senna plus for ongoing bowel motivation Blood pressure continues to be well controlled. Will continue with lisinopril and hydralazine, lisinopril, Spirolactone Continue volume IV fluids for ongoing hydration Continue to follow the routine laboratory studies. Sodium is slightly decreased today to 133. Hemoglobin stable at 9.5. We'll discuss further orders and plan of care with attending, Dr. Dhillon 12/20/16 *Multiple myeloma with intractable pain of malignancy- Chemo/XRT per Dr. Burden. Will likely need to go to [place] for XRT due to size. There is concern that he will need NH placement during radiation therapy as he continues to have difficulty with standing. Allopurinol for prevention of tumor lysis syndrome. *Acute pain of malignancy- Continue Fentanyl- increased today. Continue Scheduled Percocet and low dose PRN percocet. Will add lidoderm to left shoulder and lower back. Could consider adding Gabapentin +/_ Ford-2 or NSAID due to bony pain. Will need close monitoring or renal function. Daughter was reluctant to try Gabapentin due to "brain fogginess" from chemo. *HTN- Lisinopril/Metoprolol/Aldactone. Potassium is normal. *LÓPEZ- CPAP *Constipation- Add Lactulose. Continue Dulcosate. Encourage activity. Monitor hydration status. *DVT px- Lovenox/SCDs. *DC planning- Will need help with likely placement in [place] for ongoing care and radiation. 12/21/16 Doing fair overall. Pain varies, meds help take the edge off but not completely resolve discomfort. Bowels did start to move last night. Notes slight nausea occasionally. Breathing stable-SOA with activities but little cough/congestion. Urinating well. No f/c. Lab stable. BP with some decrease at times-possible pain medications, but overall tolerating narcotics well. Continue with pain control - pt more comfortable overall. As bowel moving, will change lactulose to as needed. Continue with bowel motivation. CM working on outpatient arrangements for Radiation in [place]. Trying to find facility for him to stay that is closer to [place] than home as transportation logistics difficult for patient. 12/22/16 Discontinue IV fluids as he is taking in adequate PO. Lower ext edema present likely from siting on edge of bed today Will give a one time dose of Lasix 20mg for diuresis Continued to work with CM for ongoing discharge plan and placement 12/23/16 Continue with pain control on current regimen of Neurontin, Lidoderm patch, Percocet, as needed Dilaudid. He continues to work with PT and OT for ongoing strengthening and improve function. He does feel that he is making some gains today. Monitor blood pressure. He did have 1 low pressure this afternoon 98/41. Post discussions throughout the day with case management, working on discharge plan and ongoing radiation needs. 12/24/16 Continue pain control - Neurontin increased to 600mg yesterday evening. Dulcolax suppository to help stool-if not having results will have nursing try fleets. Continue with therapy to improve abilities and functional status. CM working on discharge disposition - so far, have not been able to find placement. With pt's current physical limitation, discharge to home not feasible at this time. May be a possibility if pt able to make more progress with therapy. Will recheck BMP in am due to medication use. Check CBC as well. 12/25/16 Rough day. Not able to be as active as previous. More sore with movements. Appetite decreasing, slight nausea. No stool despite efforts. Feels more full in pannus (looks like dependent edema on exam). Urinating well; no pain or discomfort. Breathing stable. Creatinine with increase to 2.0. Potassium 5.6. Calcium 8.3. Will hold lisinopril and spironolactone due to elevating creatinine and potassium. Not able to do bladder scan due to body habitus - Nursing did strait cath without excessive urine in bladder indicative of retention. Dr Krishna starting steroids due to potential meyloma kidney. Lasix 20mg po daily to help motivate fluid. Continue pain control - Neurontin, Duragesic patch, and Percocet along with Dilaudid. Palliative pain control consult place. Change lactulose to 20 TIDWM to help stools. Continue with work on bowel motivation. Wound team to see for developing pressure sores on buttocks. Continue with therapy to improve abilities and functional status. CM working on discharge disposition - so far, have not been able to find placement. Will recheck BMP and Mg in am due to elevated creatinine. Check CBC as well.
[2016-12-26] MEDS: NS 1,000 ML IV SCH ×3 (09:26→22:00)
--- NOTE | 2016-12-26 11:07 | Progress Note ---
Oncology Subjective c/ pain chest , back, ribs discussed disposition plans underway to be considered. receiving chemo case d/w hospitlist. discussed renal function and K+ and creat. Exam Vital signs: Temperature 98.7 F 12/26/16 00:00 Pulse Rate 71 12/26/16 00:00 Respiratory Rate 24 12/26/16 08:56 Blood Pressure 145/65 H 12/26/16 00:00 Pulse Oximetry 93 12/26/16 08:56 Oxygen Delivery Method Nasal Cannula Oxygen Flow Rate 2 - Constitutional no acute distress Comments: morbid obesity - Routine HEENT Exam Head: Present: normocephalic, atraumatic Eye: Present: EOMI, PERRL Throat: normal inspection - Routine Respiratory Exam Present: distant breath sounds - Routine Cardiovascular Exam Present: RRR - Routine Abdominal Exam Present: soft. Absent: tenderness Comments: obese - Routine Extremities Exam Present: edema (1+) - Routine Skin Exam Absent: rash - Routine Neurological Exam Present: alert, oriented X3 - Routine Psychiatric Exam Present: normal affect Oncology Results - Labs CBC & Chem 7: 12/26/16 04:14 12/26/16 04:14 Labs: Short CBC 12/26/16 Range/Units 04:14 WBC 16.0 H (4.5-11.0) T/MM3 Hgb 9.8 L (13.5-17.5) GM/DL Hct 30.7 L (41-53) % Plt Count 106 L (130-400) T/MM3 BMP 12/26/16 04:14 Sodium 135 Potassium 6.4 H* Chloride 106 Carbon Dioxide 25 BUN 52.0 H* Creatinine 1.6 H D Glucose 140 H Calcium 9.0 D Liver Function 12/26/16 Range/Units 04:14 Total Bilirubin 0.40 (0.20-1.30) MG/DL AST 47 (17-59) U/L ALT 58 (21-72) U/L Alkaline Phosphatase 148 H (38-126) U/L Albumin 3.4 L (3.5-5.0) G/DL Urine 12/25/16 Range/Units 12:18 Urine Color Yellow (YELLOW) Urine Clarity Clear Urine pH 5.0 (5.0-8.0) Ur Specific [place] 1.025 (1.015-1.025) Urine Protein Negative (NEGATIVE) Urine Glucose (UA) Negative (NEGATIVE) Assessment and Plan (1) Multiple myeloma Status: Acute Assessment and plan: IGG Myeloma. Extensive symptomatic disease. XRT delayed due to radiation table weight limits. Chemo is CTX, velcade and dex 2. CRF/ARF, creat better, K+ worse. 3. Hyperkalemia 4,Morbid obesity buttock wounds anemia, consitpation weakness, thrombocytopenia pain Case d/w hospitalist: Plan to d/c lisinopril, aldactone, bactrim due to high creat and K+ plan tele, IV NS and Ca+/lasix low K+ diet plan lasix, hold NSAID plan pain mgmt and palliative care eval meterman plan for treatment of myeloma may need to be modified from standard guidelines and individualized due to supermorbid obesity and limits to access to care of chemo and xrt. I will review treatment options with dr. VELASQUEZ at [facility] in . Pt may do best with all oral agents for myeloma that can be administered at home/facility. Current Visit: Yes Assessment and Plan: Patient examined, chart reviewed, agree with documentation by Arlene Santiago. I participated in the development of the plan of care of this patient. He has had acute increase in his creatinine over the last 2 days going from 1.4-2.0. We will look at maintaining hydration following creatinine function stopping nephrotoxic medications stopping Bactrim. Will begin Solu-Medrol 40 mg every 12 hours. - Time Spent With Patient Total time spent is greater than 50% in coordination of care (as documented) at patient's floor/unit and/or counseling patient: 25 - 35 minutes Sepsis Assessment - Evaluation Sepsis screening result: No Definite Risk
[2016-12-26] MEDS ORDERED: INSULIN REGULAR, HUMAN 100 UNIT/ML INJECTION IVP ONE (12:40)
[2016-12-26] MEDS ORDERED: DEXTROSE 50% INJECTION 50ml VIAL IV ONE (12:41)
[2016-12-26] MEDS: SALINE FLUSH 10ml SYRINGE IV PRN (12:52)
[2016-12-26] MEDS ORDERED: FUROSEMIDE 40 MG/4 ML INJECTION IVP ONE (16:30)
[2016-12-26 16:37] VITALS: TEMP 98.7
[2016-12-26] MEDS: ENOXAPARIN 60 MG/0.6 ML INJECTION SQ SCH (17:09)
[2016-12-26] MEDS ORDERED: BUMETANIDE 2.5mg/10ml INJECTION IVP ONE (19:27)
[2016-12-26] MEDS ORDERED: BUMETANIDE IV SCH ×2 (19:28→23:17)
[2016-12-26] MEDS: LOVASTATIN 20 MG TABLET PO SCH (21:51)
[2016-12-26] MEDS: GABAPENTIN 600 MG TABLET PO SCH (21:51)
[2016-12-26] MEDS: LIDOCAINE PATCH REMOVAL TOP SCH (21:59)
[2016-12-26] MEDS: NITROGLYCERIN PATCH REMOVAL TD SCH (21:59)
[2016-12-27] MEDS: NS 1,000 ML IV SCH ×3 (00:03→06:34)
[2016-12-27] MEDS ORDERED: FALL RISK - PHARMACY CONSULT MC PRN (00:31)
[2016-12-27] MEDS: Oxycodone/Apap 10/325 1 TAB PO SCH ×3 (00:57→08:55)
[2016-12-27] MEDS: HYDROMORPHONE 2 MG/ML INJECTION IVP PRN (01:02)
[2016-12-27] MEDS ORDERED: HYDROMORPHONE 2 MG/ML INJECTION IVP PRN (02:47)
[2016-12-27] MEDS: LEVOTHYROXINE 100 MCG TABLET PO SCH ×2 (04:59→06:35)
[2016-12-27] MEDS ORDERED: SODIUM POLYSTYRENE SULFONATE 15 GM/60 ML BOTTLE PO ONE ×2 (05:45→08:15)
[2016-12-27] MEDS ORDERED: DEXTROSE 50% INJECTION 50ml VIAL IV ONE (06:45)
[2016-12-27] MEDS ORDERED: INSULIN REGULAR, HUMAN 100 UNIT/ML INJECTION IVP ONE (06:45)
--- NOTE | 2016-12-27 08:16 | Discharge Instructions ---
Discharge Plan - Med Rec/Dispo Referrals/Follow Up: Trey Burden MD [Physician] - Prescriptions: New Albuterol Neb (0.083%) [Proventil Neb (0.083%)] 2.5 mg AEROSOL Q4H PRN neb PRN Reason: Air Hunger Allopurinol [Zyloprim] 200 mg PO DAILY tablet Docusate Sodium [Colace] 100 mg PO BID capsule FentaNYL PATCH [Duragesic Patch] 50 mcg TD Q3D patch Gabapentin [Neurontin] 600 mg PO HS tablet Lidocaine 5% Patch [Lidoderm] 3 patch TOP DAILY patch Lidocaine Patch Removal [Lidoderm Patch Removal] 1 removal TOP 2100 patch Nitroglycerin Patch [Nitro-Dur 0.2 mg/Hr] 1 patch TD DAILY patch Nitroglycerin Patch Removal [Nitro-Dur Patch Removal] 1 removal TD 2100 patch Oxycodone/APAP 10/325 [Percocet 10/325] 1 tab PO QID PRN tablet PRN Reason: Pain Oxycodone/APAP 10/325 [Percocet 10/325] 1 tab PO Q4H tablet Acyclovir [Zovirax] 200 mg PO TID capsule Albuterol Neb (0.083%) [Proventil Neb (0.083%)] 2.5 mg AEROSOL BID neb Enoxaparin Sodium [Lovenox] 50 mg SQ 1800 syringe FentaNYL PATCH REMOVAL [Duragesic Patch Removal] 1 removal TD Q3D patch Methylprednisolone Sod Succ [Solu-Medrol] 40 mg IVP Q12HR vial Ondansetron Inj [Zofran] 4 mg IVP Q6H PRN vial PRN Reason: Nausea &/Or Vomiting Continue Metoprolol Tartrate [Lopressor] 50 mg PO BIDWM Lovastatin [Mevacor] 20 mg PO DAILY Levothyroxine Tab [Synthroid] 1 tab PO ACB Nitroglycerin Patch [Nitro-Dur 0.2 mg/Hr] 0.2 mg TRANSDERMA Q24HR Discontinued Lisinopril [Prinivil] 20 mg PO DAILY Hydralazine [Apresoline] 25 mg PO TID Sulfamethoxazole/Trimethoprim [Bactrim Ds Tablet] 1 tab PO BID Allopurinol [Zyloprim] 1 tab PO DAILY Spironolactone [Aldactone] 25 mg PO DAILY Oxycodone/APAP 10/325 [Percocet 10/325] 1 tab PO Q4H PRN PRN Reason: Pain HydroCHLOROthiazide [HydroDIURIL] 1 tab PO WB No Action Acyclovir 1 tab PO TID Discharge Instructions/Outpatient Orders: Final Provider Discharge Instructions Location: Determined By Patient - Disposition 02 To [facility]
--- NOTE | 2016-12-27 08:38 | Discharge Summary ---
Discharge Information Date of admission: 12/19/16 14:35 Attending Physician: Rhona Dhillon MD Primary care physician: Trey Mcnulty Consults: 12/17/16 Pharmacy Consult [CONS] Routine Pharmacy Consult: Enoxaprin/Lovenox 12/17/16 21:12 Case Management Consult [CONS] Routine Reason For Exam: Recent dx of Multiple Myeloma Physician Consult [CONS] Routine Consulting Provider: Benjamín Krishna Reason For Exam: Recent dx of Multiple Myeloma Ordering Provider has Notified Instructional Supervisor: No Comment: Nursing to notify 12/25/16 11:47 W[facility] Consult [CONS] Routine Reason for consultation: open pressure sores - Discharge Diagnosis (1) Intractable pain Status: Acute (2) Metastatic cancer to bone Status: Acute (3) Hypocalcemia Problem Details: Recently treated for Hypercalcemia Status: Acute (4) Constipation Status: Acute (5) LÓPEZ (obstructive sleep apnea) Status: Chronic (6) Morbid (severe) obesity due to excess calories Status: Chronic (7) Cardiac arrhythmia Status: Chronic (8) HTN (hypertension) Status: Chronic (9) Dehydration Status: Resolved (10) Generalized weakness Status: Acute (11) Prostate cancer Status: Chronic (12) Multiple myeloma Status: Acute (13) Elevated serum creatinine Status: Acute - Procedures Procedures: None - Laboratory Labs: 12/27/16 05:04 12/27/16 05:04 On admission on 12/19/2016 white count 6.1, hemoglobin 9.5, platelets 126 On admission 12/17/2016, sodium 134, potassium 4.2, chloride 104, carbon dioxide 27, BUN 44, creatinine 1.2 LDH on 12/22/2016 was 477 On 12/25/2016 potassium was 5.6, BUN 49, creatinine 2.0 On the morning of 12/26/2016 potassium 5.6, BUN 52, creatinine 1.6 On 12/27/2016 uric acid is 7.3 and LDH is 445 - Microbiology None - Radiology Radiology: Renal sonogram on 12/26/2016 read by [facility] shows a 13 x 7 x 10 cm cyst on the upper pole of the right kidney and 2 cysts on the left kidney largest measuring up to 3.9 cm. No stones, no hydronephrosis. History of Present Illness HPI: Hospitalist history of present illness -Dr. Carranza's note reviewed. Mr. Alexis interviewed and examined. Patient's was present and assisted in providing history. CC: Severe back pain HPI: Venancio is a 66 y/o male who lives in [place], [place] who was recently diagnosed with Multiple Myeloma after a chest x-ray demonstrated a mass in the left chest. 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 Biopsy confirmed diagnosis of multiple myeloma and chemotherapy was initiated (Cytoxan and VD) on 12/14 and he received Zometa for lytic disease and epo for anemia. Patient was discharged on 12/16 returning to his home with plans to follow-up with Dr. Burden on 12/17 to coordinate continuation of chemotherapy locally. In the 24 hours after discharge the patient had significant increase in pain in the left shoulder and low back such that he was unable to ambulate or transfer independently. EMS assisted the patient into his car so he could go to his physician's appointment but it was determined that the patient should further appointment in the office and instead be evaluated in the emergency room in [facility] where pain control remained problematic and he was referred for hospitalization for pain control. Currently patient reports pain in his low back is 7-8 out of 10 and that with any movement or repositioning in bed pain increases to 10+/10. Patient was noted to be wheezing slightly on admission yesterday evening and required albuterol treatment on admission. Oncology consult history of present illness -This is a 66-year-old male patient with history of prostate cancer diagnosed in July 2016, evaluated but not treated. Surgery and radiation were elected against due to the patient's morbid obesity and size at 480 pounds. The patient presented with chest and left shoulder pain. CT scan showed large bony sessile lesions involving the left mid chest and extensive metastatic disease involving multiple areas of the spine. CT scan of the spine on 12/07/2016 showed a large soft tissue mass causing significant bony abnormalities to the left posterior ribs. There are some lytic lesions in the thoracic spine with compression fractures. CT scan of the lumbar spine showed multiple lytic lesions. CT scan of the chest, abdomen and pelvis without contrast on 12/03/2016 showed extensive osteolytic mets throughout the spine, sternum and left scapula. Large pleural-based sessile lesions involving the left mid chest posteriorly and right upper chest. Extensive lymphadenopathy throughout the left paraspinal space lower chest. Left axillary adenopathy but no mediastinal or hilar adenopathy. Small peripheral-based pulmonary nodules in the left lung base measuring 2 x 1.5 cm. Extensive osteolytic lesions throughout the lumbar spine, pelvis and sacrum. Bilateral renal lesions. No visceral masses or lesions. CT scan of the brain without contrast negative. 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 The patient was diagnosed with IgG multiple myeloma. He was seen by Dr. Sergo Macias in [place]. The patient started on chemotherapy VCD on 12/11/2016. He received the first cycle on December 11, 2016 in [place] using Velcade 1.3 mg/ m2 on days 1, 4, 8 and 11 plus cyclophosphamide 900 mg/m2 which was given on December 14, 2016. Also given dexamethasone from December 11, 2016 through December 14, 2016 for four days, days 1 through 4, with a plan to give him 40 mg p.o. weekly. Velcade was given day 1 on December 11, 2016 and day 4 also was given. The patient is due for Velcade day 8 on 12/18/2016. His chief complaint is bone pain. He is on Percocet and Dilaudid but this is not helping for pain. 12/27/16 08:39 12/27/16 08:45 Objective Vital signs: Temperature 98.7 F 12/26/16 16:00 Pulse Rate 65 12/27/16 04:00 Respiratory Rate 12 12/27/16 04:00 Blood Pressure 114/54 12/27/16 04:00 Pulse Oximetry 90 12/27/16 04:00 Oxygen Delivery Method CPAP Oxygen Flow Rate 3 Weight: 227.5 kg Hospital Course This is a general summary of the patient's hospital course. For more details refer to the complete medical record. Hospital course: The patient was admitted on 12/17/2016 for pain control secondary to multiple myeloma with bony lesions including lytic lesions in the spine. The patient was started on fentanyl patch and Lidoderm patch for pain control. Oncology was consulted during the patient's hospital stay and his chemotherapy regimen with Cytoxan and VD were continued 12/18/2016. The patient was on allopurinol for possible tumor lysis. He was also on Bactrim and acyclovir for prophylaxis. He had dehydration on admission and was given low-dose IV fluids. The patient was on 3 L of oxygen for hypoxia during the hospital stay. He continued on his CPAP for sleep apnea. On 12/22/2016 the patient's potassium was 5.7 with BUN of 32 and creatinine of 1.1. There was no hemolysis. On the following day after one dose of Lasix, potassium had normalized to 4.9. On 12/25/2016 the patient's creatinine went up to 2.0, BUN 49, and potassium of 5.6. He did receive lisinopril and spironolactone on the but after that morning's dose they were discontinued. Patient's last dose of Bactrim was on 05/2017. On 12/26/2016 potassium was up to 6.4, BUN was 52, and creatinine had improved to 1.6. At this time the patient was treated with IV calcium, IV insulin, and started on IV fluids and Lasix. Creatinine remained stable and urine output was good but potassium was not improving. Nephrology was called and recommended continuing IV fluids and starting Bumex loading dose and a Bumex drip. Hydralazine was discontinued to prevent hypotension. Patient was continued on his usual beta frederick. Despite the patient having 6 L of urine output in 24 hours, potassium did increase again to 6.8. BUN is 54 and creatinine is 1.6. On the day discharge LDH is 445 and uric acid is 7.3. The patient was started on a low potassium diet on 12/26/2016. Renal sonogram was obtained with results as above. Ugarte catheter was placed and the patient did not have urinary retention. Because of worsening potassium, recommendation was made for transfer to a tertiary care center in case emergent dialysis is required. Patient was in agreement with transfer to [facility]. Greater than 30 minutes of time was spent on dismissal day. Discharge Plan - Med Rec/Dispo Referrals/Follow Up: Trey Burden MD [Physician] - Prescriptions: New Albuterol Neb (0.083%) [Proventil Neb (0.083%)] 2.5 mg AEROSOL Q4H PRN neb PRN Reason: Air Hunger Allopurinol [Zyloprim] 200 mg PO DAILY tablet Docusate Sodium [Colace] 100 mg PO BID capsule FentaNYL PATCH [Duragesic Patch] 50 mcg TD Q3D patch Gabapentin [Neurontin] 600 mg PO HS tablet Lidocaine 5% Patch [Lidoderm] 3 patch TOP DAILY patch Lidocaine Patch Removal [Lidoderm Patch Removal] 1 removal TOP 2100 patch Nitroglycerin Patch [Nitro-Dur 0.2 mg/Hr] 1 patch TD DAILY patch Nitroglycerin Patch Removal [Nitro-Dur Patch Removal] 1 removal TD 2100 patch Oxycodone/APAP 10/325 [Percocet 10/325] 1 tab PO QID PRN tablet PRN Reason: Pain Oxycodone/APAP 10/325 [Percocet 10/325] 1 tab PO Q4H tablet Acyclovir [Zovirax] 200 mg PO TID capsule Albuterol Neb (0.083%) [Proventil Neb (0.083%)] 2.5 mg AEROSOL BID neb Enoxaparin Sodium [Lovenox] 50 mg SQ 1800 syringe FentaNYL PATCH REMOVAL [Duragesic Patch Removal] 1 removal TD Q3D patch Methylprednisolone Sod Succ [Solu-Medrol] 40 mg IVP Q12HR vial Ondansetron Inj [Zofran] 4 mg IVP Q6H PRN vial PRN Reason: Nausea &/Or Vomiting Continue Metoprolol Tartrate [Lopressor] 50 mg PO BIDWM Lovastatin [Mevacor] 20 mg PO DAILY Levothyroxine Tab [Synthroid] 1 tab PO ACB Nitroglycerin Patch [Nitro-Dur 0.2 mg/Hr] 0.2 mg TRANSDERMA Q24HR Discontinued Lisinopril [Prinivil] 20 mg PO DAILY Hydralazine [Apresoline] 25 mg PO TID Sulfamethoxazole/Trimethoprim [Bactrim Ds Tablet] 1 tab PO BID Allopurinol [Zyloprim] 1 tab PO DAILY Spironolactone [Aldactone] 25 mg PO DAILY Oxycodone/APAP 10/325 [Percocet 10/325] 1 tab PO Q4H PRN PRN Reason: Pain HydroCHLOROthiazide [HydroDIURIL] 1 tab PO WB No Action Acyclovir 1 tab PO TID Discharge Instructions/Outpatient Orders: Final Provider Discharge Instructions Location: Determined By Patient - Disposition 02 To [facility] Acute Care
[2016-12-27] MEDS: ALLOPURINOL 100 MG TABLET PO SCH (08:53)
[2016-12-27] MEDS: ACYCLOVIR 200 MG CAPSULE PO SCH (08:53)
[2016-12-27] MEDS: METHYLPREDNISOLONE SOD SUCC 40mg/ml INJECTION IVP SCH (08:58)
[2016-12-27] MEDS: NITROGLYCERIN 0.2 MG/HR PATCH TD SCH (08:59)
[2016-12-27] MEDS: LIDOCAINE 5% PATCH TOP SCH (09:07)
--- NOTE | 2016-12-27 10:32 | Ultrasound Report ---
Indication: acute kidney injury PROCEDURE: US renal BI: Encounter: Initial Comparison: None Technique: Grayscale and color Doppler sonographic imaging of both kidneys was performed. FINDINGS: Both kidneys are present with moderate cortical thinning and normal echogenicity. No evidence for collecting system dilatation, contour deforming mass, nephrolithiasis, or abnormal perinephric fluid collection. The right kidney measures 13.2 cm in length, and the left kidney measures 13.8 cm in length. Large simple appearing left renal cysts up to 4 cm in diameter. Very large right renal cyst measuring over 13 cm in maximal diameter. IMPRESSION: No hydronephrosis. Large bilateral renal cysts. There is a preliminary report by [employer]. .
[2016-12-27 11:41] VITALS: BP 148/63; PULSE 76; RESP 22; O2SAT 94
[2016-12-27] MEDS: ALBUTEROL 2.5mg/3ml (0.083%) NEB AEROSOL SCH (11:50)
== END 2016-12-27 10:00 | disposition short-term general hospital (02) | DRG 543 ==
LOC: MED → MC 12-26 20:07 → CCU 12-26 20:48
PROVIDERS: ADMIT Internal Medicine; ATTEND Internal Medicine